=== PATIENT | male | born 1965 | race Caucasian/White ===

== ENCOUNTER 2021-01-10 08:17 | Outpatient (REF) | payer MEDICARE, MEDICAID, SELFPAY ==
[2021-01-10 09:42] LABS: MANUAL DIFF FLAG NO
[2021-01-10 09:47] LABS: Basophils Absolute Auto 0.1 X10*3/uL (0.0-0.2); Basophils Percent Auto 0.7 % (0-2); Eosinophils Absolute Auto 0.2 X10*3/uL (0.0-0.4); Eosinophils Percent Auto 2.5 % (0-4); Hemoglobin 14.5 g/dl (14.0-18.0); Imm Gran Abs Auto 0.11 X10*3/uL (0.00-0.03); Imm Gran Pct Auto 1.2 % (0.0-0.4); Lymphocytes Absolute Auto 1.4 X10*3/uL (1.2-4.9); Lymphocytes Percent Auto 15.5 % (20-40); Mean Corpuscular Hemoglobin 30.3 pg (27.0-33.0); Mean Corpuscular Volume 92.1 fL (80-98); Mean Platelet Volume 10.8 fL (9.4-12.4); Monocytes Absolute Auto 0.8 X10*3/uL (0.1-1.2); Monocytes Percent Auto 9.1 % (2-11); Neutrophils Absolute Auto 6.3 X10*3/uL (2.0-8.3); Platelet Count 363 X10*3/uL (160-400); Red Blood Count 4.78 X10*6/uL (4.60-5.80); Red Cell Distribution Width 13.7 % (11.0-16.0); White Blood Count 8.9 X10*3/uL (4.8-10.8)
[2021-01-10 10:15] LABS: Alanine Aminotransferase 17 U/L (0-40); Albumin Level 4.3 g/dL (3.5-5.0); Alkaline Phosphatase 64 U/L (39-117); Anion Gap 14 (12-20); Aspartate Amino Transferase 18 U/L (5-37); Bilirubin Total 0.6 mg/dL (0.0-1.0); Blood Urea Nitrogen 13 mg/dL (9-16); Calcium 9.4 mg/dL (8.4-10.2); Carbon Dioxide 26 mmol/L (22-29); Chloride 105 mmol/L (96-108); Cholesterol 189 mg/dL; Estimated Glomerular Filt Rate > 60; Glucose Fasting 100 mg/dL (60-99); HDL Cholesterol 44 mg/dL; LDL Cholesterol Calculated 133 mg/dl; Potassium 4.1 mmol/L (3.3-5.1); Sodium 141 mmol/L (135-145); Total Protein 7.8 g/dL (6.5-8.0); Triglycerides 61 mg/dL
[2021-01-10 10:36] LABS: TSH reflex Free T4 2.91 uIU/mL (0.32-4.0)
== END 2021-01-10 08:18 | disposition home or self-care (01) ==
LOC: HO.LAB 08:17
PROVIDERS: PCP Family Medicine; Visit Provider Family Medicine
DX: Z00.00 Encounter for general adult medical examination without abnormal findings (principal); D64.9 Anemia, unspecified
CPT/HCPCS: 36415; 80053; 80061; 84443; 85025

== ENCOUNTER 2021-03-02 11:54 | Outpatient (REF) | payer MEDICARE, MEDICAID, SELFPAY ==
--- NOTE | 2021-03-02 16:40 | MHC.AU.ANR ---
Adult Audiological Evaluation Date of Visit: 03/02/21 Reason for Appointment: Audiological evaluation as required annually by SHAVON KIMBALL. Mr. Torres was accompanied by his telephonic case manager that notes that much of Mr. Torres's medical history is unknown and prior to his arrival many of his medical needs were neglected. There have not been any significant concerns for Mr. Mortensens hearing. Does patient feel they have a hearing loss?: No Has hearing been tested previously?: Unknown Medical History: Medical History: Developmental Disorder/Delay Medical History (Other): Cerebral palsy Medication List: Tylenol/Acetaminophen PRN, Eucerine cream PRN, Hydrocortisone 1% PRN Otoscopy: Right Ear: Completely occluded w/wax. Almost all removed. Small amount remains. Left Ear: Minor wax build-up, removed entirely without incident. Tympanometry: Tympanometry performed due to: To determine if cerumen blockage is fully occluding canal(s) Right Ear: Normal Middle Ear System (Type A) Left Ear: Normal Middle Ear System (Type A) Hearing Evaluation: Transducer(s) Used: Circumaural Headphones, Bone Conduction Method: Conventional Audiometry Stimuli Used: Pure Tones Right Ear: Description of Hearing: Normal hearing from 250-3000 Hz, sloping to a mild to moderate sensorineural hearing loss from 6090-5129 Hz. Left Ear: Description of Hearing: Normal hearing from 250-4000 Hz, sloping to a moderate hearing loss from 2735-4126 Hz. Speech Recognition Threshold (SRT): Method Used: Monitored Live Voice Stimuli Used: Spondee Words Right Ear: 5 dBHL Left Ear: 5 dBHL Word Discrimination: Method: Recorded Lists Word Lists Used: NU-6 Right Ear: 100% at 55 dBHL Left Ear: 100% at 55 dBHL Recommendations: Audiological re-evaluation in one year. Amplification is not warranted at this time. Recommend monthly use of ear wax softening drops that can be purchased over the counter (i.e. Debrox, Ear Wax ) to help prevent further wax build-up. Mr. Torres[facility] [place] requires an Rx for use of any medical supplies, and therefore an Rx from his PCP is needed for ear wax softening drops. Diagnosis: Primary Diagnosis: H90.3 Bilateral Sensorineural Hearing Loss Secondary Diagnosis: H61.23 Impacted Cerumen, Bilateral Services Performed: Services Performed: Comprehensive Audiological Evaluation (CPT 43142) Tympanometry (CPT 44273) Signature: Provider: Chad Hatch, CCC-A
== END 2021-03-02 11:55 | disposition home or self-care (01) ==
LOC: HO.SH 11:54
PROVIDERS: Visit Provider Family Medicine
DX: H91.90 Unspecified hearing loss, unspecified ear (principal); F79 Unspecified intellectual disabilities; G80.9 Cerebral palsy, unspecified
CPT/HCPCS: 92557; 92567

== ENCOUNTER 2021-05-09 11:33 | Outpatient (REF) | payer MEDICARE, MEDICAID, SELFPAY ==
[2021-05-09 13:55] LABS: Alanine Aminotransferase 14 U/L (0-40); Albumin Level 4.1 g/dL (3.5-5.0); Alkaline Phosphatase 77 U/L (39-117); Anion Gap 10 (12-20); Aspartate Amino Transferase 17 U/L (5-37); Bilirubin Total 0.5 mg/dL (0.0-1.0); Blood Urea Nitrogen 13 mg/dL (9-16); Calcium 9.7 mg/dL (8.4-10.2); Carbon Dioxide 28 mmol/L (22-29); Chloride 106 mmol/L (96-108); Estimated Glomerular Filt Rate > 60; Glucose Random 86 mg/dL (60-115); Iron 64 mcg/dL (45-160); Percent Iron Saturation 20 % (15-50); Potassium 3.8 mmol/L (3.3-5.1); Sodium 140 mmol/L (135-145); Total Iron Binding Capacity 316 mcg/dL (228-428); Total Protein 7.2 g/dL (6.5-8.0); Unsaturated Iron Binding 252 ug/dL
[2021-05-09 14:12] LABS: HBS Num1 0.07 mIU/mL (0-7.99); ~Hepatitis B Surface Antibody NONREACTIVE (Nonreactive)
[2021-05-09 14:15] LABS: Prostate Specific Antigen Scr 0.64 ng/mL (<0.05-4.0); Vitamin D 25-OH Total 25.4 ng/mL (>30)
[2021-05-09 14:21] LABS: HBc Num1 0.11 S/CO (0.00-0.79); HBsAGNum1 0.21 S/CO (0.00-0.99); Hepatitis B Core Antibody Nonreactive (Nonreactive); Hepatitis B Surface Antigen Negative (Negative); ~Hepatitis C Antibody Nonreactive (Nonreactive)
[2021-05-09 14:30] LABS: Folate 15.7 ng/mL (> or = 4.0); Vitamin B12 379 pg/mL (200-900)
[2021-05-10 21:32] LABS: Mumps Virus IgG Antibody <9.00 AU/mL; Rubeola IgG (Measles) <13.50 AU/mL
== END 2021-05-09 11:34 | disposition home or self-care (01) ==
LOC: HO.WFDLDS 11:33
PROVIDERS: Visit Provider Family Medicine
DX: Z01.84 Encounter for antibody response examination (principal); Z11.59 Encounter for screening for other viral diseases; Z12.5 Encounter for screening for malignant neoplasm of prostate; E63.9 Nutritional deficiency, unspecified; Z71.89 Other specified counseling; E55.9 Vitamin D deficiency, unspecified; E53.8 Deficiency of other specified B group vitamins
CPT/HCPCS: 36415; 80053; 82306; 82607; 82746; 83540; 84153; 86704; 86706; 86735; 86762; 86765; 86787; 86803; 87340

== ENCOUNTER 2021-05-25 10:48 | Outpatient (REF) | payer MEDICARE, MEDICAID, SELFPAY ==
--- NOTE | ~2021-05-25 | XR_ITS ---
EXAMINATION: XR CHEST CLINICAL INFORMATION: Nonspecific reaction to tuberculin skin test. COMPARISON: None. TECHNIQUE: 2 views of the chest were obtained. FINDINGS: The lungs are clear. The cardiomediastinal silhouette is normal in size. There is no pleural effusion or pneumothorax. No acute osseous abnormality. XR/XR chest 2V IMPRESSION: No acute cardiopulmonary findings.
== END 2021-05-25 10:49 | disposition home or self-care (01) ==
LOC: HO.XRAY 10:48
PROVIDERS: PCP Family Medicine; Visit Provider Nurse Practitioner Family
DX: R76.11 Nonspecific reaction to tuberculin skin test without active tuberculosis (principal)
CPT/HCPCS: 71046

== ENCOUNTER → 2021-08-21 08:02 | Outpatient (BNVA) | payer MEDICARE, MEDICAID, SELFPAY | PROVIDERS: Visit Provider Nurse Practitioner Family | DX: Z13.89 Encounter for screening for other disorder (principal) | CPT/HCPCS: 99202 ==

== ENCOUNTER 2021-08-21 09:10 | Outpatient (REF) | payer MEDICARE, MEDICAID, SELFPAY ==
[2021-08-21 09:53] LABS: Hematocrit 47.9 % (42.0-52.0); Hemoglobin 15.7 g/dl (14.0-18.0); Mean Corpuscular HGB Conc 32.8 g/dl (31.0-36.0); Mean Corpuscular Hemoglobin 29.3 pg (27.0-33.0); Mean Corpuscular Volume 89.5 fL (80.0-98.0); Mean Platelet Volume 10.6 fL (9.4-12.4); Platelet Count 320 X10*3/uL (160-400); Red Blood Count 5.35 X10*6/uL (4.60-5.80); Red Cell Distribution Width 13.3 % (11.0-16.0); White Blood Count 8.9 X10*3/uL (4.8-10.8)
== END 2021-08-21 09:11 | disposition home or self-care (01) ==
LOC: HO.LAB 09:10
PROVIDERS: PCP Family Medicine; Visit Provider Nurse Practitioner Family
DX: Z01.818 Encounter for other preprocedural examination (principal)
CPT/HCPCS: 36415; 85027; 99202

== ENCOUNTER 2021-11-22 14:00 | Outpatient (RCR) | payer MEDICARE, MEDICAID, SELFPAY ==
--- NOTE | 2021-11-01 13:42 | MHC.PT.EP ---
[facility] [place] Office [place] Office [address] Waqar Talbert [address] [phone] F: [phone] F: [phone] F: [phone] F: [phone] Physical Therapy Plan of Care Date of Evaluation: Date of Surgery: N/A Diagnosis: unsteadiness on feet cerebral palsy Assessment: pt presented w/ significant tilt of walker causing him increased trunk flexion and forward force. When the walker was adjusted he had improved posture and his gait slowed down to a safe pace. pt does present w/ cerebral palsy and has poor insight into his abilities and has poor carryover w/ cueing from this therpist which will limit his progress. pt presents to physical therapy with pain, decreased range of motion, decreased strength, impaired functional mobility, impaired postural awareness, and gait deviations. pt is a fair candidate for skilled PT due to age, potential remediation of impairments, typical disease/condition progression and prognosis, comorbidities, and motivation. pt would benefit from tailored strengthening and stretching exercise program, functional training, gait training, postural re-training, neuromuscular re-education, modalities as needed for pain, equipment safety demonstration. Frequency and Duration: The patient will be seen 2x/wk for 3 wks Short Term Goals: pt will be spv level for home exercise program to promote self-management of condition. pt will improve B quad strength by 1 MMT to promote ease in sit to stand transfers. Gill Box Tender Goals: pt will perform sit to stand transfer in one attempt w/ proper hand and foot placement to increase safety w/ transfers. pt will demonstrate upright trunk and feet within the walker to promote safety w/ ambulation. Treatment Plan: Modalities to reduce pain, spasms and effusion. Manual therapy to restore motion and function. Therapeutic exercise to improve strength and flexibility. Neuromuscular re-education for posture and balance. Therapeutic activities to return to functional activities of daily living. Electronically signed by: Anita Young PT, DPT Please sign and return to therapist. Thank you for your referral.
--- NOTE | 2021-11-27 15:20 | MHC.PT.DC ---
[facility] [place] Office [place] Office [place] Office [address] Waqar Talbert [address] [facility] [phone] F: [phone] F: [phone] F: [phone] F: [phone] Physical Therapy Discharge Report Diagnosis: unsteadiness on feet cerebral palsy Date of Surgery: N/A Date of Evaluation: 11/01/21 Date of Discharge: 11/27/21 Treatments to Date: 6 Cancellations to Date: 1 No Shows to Date: 0 Discharge Status: Improved Function Discharge Summary: The patient overall has demonstrated improved postural awareness and safety with ambulation using his walker. The angle of his walker was adjusted the first day of his plan of care to prevent him from relying on his upper extremities and promoting significant forward lean. He has better awareness of neutral trunk and keeping his feet close to the walker to prevent falls. Due to cognitive impairments he does require occasional verbal cueing to maintain safety while ambulating. The staff who accompany him during his visits were educated on how to cue him while ambulating and were shown how to take him through his exercises. He was given a home exercise program to continue to work on strengthening his legs as well as promoting improved muscle activation and isolation. He is discharged from this physical therapy plan of care to his home exercise program. Electronically signed by: Anita Young PT, DPT Please sign and return to therapist. Thank you for your referral.
== END 2021-11-27 15:21 | disposition home or self-care (01) ==
LOC: HO.PT 14:00
PROVIDERS: PCP Family Medicine; Visit Provider Family Medicine
DX: R26.81 Unsteadiness on feet (principal)
CPT/HCPCS: 97110; 97116; 97162

== ENCOUNTER 2021-12-13 13:01 | Outpatient (REF) | payer MEDICARE, MEDICAID, SELFPAY ==
[2021-12-13 14:17] LABS: MANUAL DIFF FLAG NO
[2021-12-13 14:21] LABS: Basophils Percent Auto 0.3 % (0-2); Eosinophils Absolute Auto 0.2 X10*3/uL (0.0-0.4); Eosinophils Percent Auto 1.6 % (0-4); Hematocrit 48.2 % (42.0-52.0); Hemoglobin 15.7 g/dl (14.0-18.0); Imm Gran Abs Auto 0.05 X10*3/uL (0.00-0.03); Imm Gran Pct Auto 0.4 % (0.0-0.4); Lymphocytes Absolute Auto 1.7 X10*3/uL (1.2-4.9); Lymphocytes Percent Auto 13.9 % (20-40); Mean Corpuscular HGB Conc 32.6 g/dl (31.0-36.0); Mean Corpuscular Volume 88.9 fL (80.0-98.0); Mean Platelet Volume 11.1 fL (9.4-12.4); Monocytes Absolute Auto 1.1 X10*3/uL (0.1-1.2); Monocytes Percent Auto 9.2 % (2-11); Neutrophils Absolute Auto 9.1 x10*3/uL (2.0-8.3); Neutrophils Percent Auto 74.6 % (45-73); Platelet Count 329 X10*3/uL (160-400); Red Blood Count 5.42 X10*6/uL (4.60-5.80); Red Cell Distribution Width 13.2 % (11.0-16.0); White Blood Count 12.2 X10*3/uL (4.8-10.8)
[2021-12-13 14:35] LABS: Alanine Aminotransferase 14 U/L (0-40); Albumin Level 4.4 g/dL (3.5-5.0); Alkaline Phosphatase 69 U/L (39-117); Anion Gap 12 (12-20); Aspartate Amino Transferase 22 U/L (5-37); Bilirubin Total 0.8 mg/dL (0.0-1.0); Blood Urea Nitrogen 13 mg/dL (9-16); Calcium 9.8 mg/dL (8.4-10.2); Carbon Dioxide 26 mmol/L (22-29); Chloride 105 mmol/L (96-108); Estimated Glomerular Filt Rate > 60; Glucose Fasting 82 mg/dL (60-99); Sodium 139 mmol/L (135-145); Total Protein 7.7 g/dL (6.5-8.0)
== END 2021-12-13 13:02 | disposition home or self-care (01) ==
LOC: HO.WFDLDS 13:01
PROVIDERS: Visit Provider Family Medicine
DX: K92.1 Melena (principal)
CPT/HCPCS: 36415; 80053; 85025

== ENCOUNTER 2021-12-14 08:51 | Emergency (ER) | payer MEDICARE, MEDICAID, SELFPAY ==
[2021-12-14 09:02] VITALS: BP 130/88; BP 140/100; PULSE 94; RESP 16; TEMP 36.8; O2SAT 98; BMI 27.4
--- NOTE | 2021-12-14 09:13 | ED_ITS ---
HPI - General Adult General Chief complaint: GI Bleed Stated complaint: frequent bowel movements Time Seen by Provider: 12/14/21 09:03 Source: patient and EMS Mode of arrival: EMS History of Present Illness HPI narrative: 56-year-old male with no significant past medical history presenting to the ED from skilled nursing for reported intermittent diarrhea and bloody BMs. Per EMS patient was seen by PCP yesterday who schedule lab/stool studies. Patient offers no complaints at present, denies abdominal pain, nausea, vomiting, bloody BMs at present, melena, rectal pain, dysuria/hematuria, lightheadedness/dizziness. Denies taking anticoagulation. Onset (ago): day(s) Related Data Home Medications Medication Instructions Recorded Confirmed carbamide peroxide 6.5 % ear drops 5 drp OTIC (EAR) RIGHT Q2D 12/14/21 12/14/21 (Debrox) lanolin-mineral oil lotion 1 appl TOPICAL BID PRN 12/14/21 12/14/21 (Eucerin Original) Previous Rx's Medication Instructions Recorded acetaminophen 650 mg 650 mg PO Q8H PRN 90 Days #270 tab 01/09/21 tablet,extended release (Tylenol 8 Hour) hydrocortisone 1 % topical cream 1 appl TOPICAL DAILY PRN 30 Days 01/09/21 (Anti-Itch (hydrocortisone)) #28.4 g miscellaneous medical supply #1 ea 01/09/21 Shower Chair #1 ea 01/10/21 cholecalciferol (vitamin D3) 125 125 mcg PO DAILY 30 Days #30 cap 08/28/21 mcg (5,000 unit) capsule Allergies Allergy/AdvReac Type Severity Reaction Status Date / Time No Known Allergies Allergy Verified 12/13/21 12:11 Review of Systems Review of Systems: Constitutional: No Fever, No Chills, No Fatigue, No Malaise ENT/Mouth: No Ear Pain, No Nasal Congestion, No Hoarseness, No sore throat, No Rhinorrhea, No Swallowing Difficulty Eyes: No Eye Pain, No Swelling, No Redness, No Discharge Cardiovascular: No Chest Pain, No SOB, No Edema, No Palpitations Respiratory: No Cough, No Sputum, No Smoke Exposure, No Dyspnea Gastrointestinal: No Nausea, No Vomiting, No Diarrhea, No Constipation, No Abdominal pain, +intermittent bloody stools, No Melena Genitourinary: No irregular bleeding, No Dysuria, No Urinary Frequency, No Hematuria, No Flank Pain Musculoskeletal: No joint pain, No Myalgias, No Joint Swelling Skin: No Skin Lesions, No rash Neuro: No Weakness, No Numbness, No Paresthesias, No Dizziness, No Headache Yes all other systems are reviewed and are negative [facility] Past Medical History Attestation statement: The following information was validated with the patient. Social History Social History Housing: Senior Living Alcohol intake: never Patient Tobacco Use Status: Never used Tobacco e-Cigarette/Vaping Use: Never Used Second Hand Smoke Exposure: No Use of substances other than those prescribed or required for medical reasons: No Advance Directives: No Advance Directives Information Provided: No service: No Current occupational status: disabled Current occupational exposures/hazards: No Physical Exam ED Vital Signs: Vital Signs - 24 hr 12/14/21 09:02 12/14/21 09:33 12/14/21 10:54 Temperature 98.3 F 97.8 F 97.6 F Pulse Rate 94 80 65 Respiratory Rate 16 18 18 Blood Pressure 130/88 121/74 114/78 Pulse Oximetry 98 95 95 BMI result Body Mass Index 27.4 Const General: cooperative, healthy appearing and no acute distress Orientation/consciousness: patient oriented x3 Limitations: no limitations HENMT Head: Yes normal to inspection Ears: hearing grossly normal bilaterally General nose exam: Normal external nose present Face and sinus: Yes normal facial exam Eyes General: appearance normal, both eyes and all related structures EOM: EOMs intact bilaterally Neck Neck: Yes normal visual inspection and Yes no meningeal signs Resp Effort & Inspection: normal respiratory effort Auscultation: clear to auscultation bilaterally, no rales, no rhonchi and no wheezes Cardio Rate: regular rate Heart sounds: S1 normal heart sound present and S2 normal heart sound present GI Inspection: Yes normal to inspection Palpation (GI): Soft to palpation, nontender, no guarding and not rigid Rectal Exam - Male: No External hemorrhoid(s) present and No Internal hemorrhoid(s) present Skin Rashes: no rashes Wounds: no wounds Neuro General: patient oriented x3 and no meningeal signs Gait exam (Neuro): Normal gait present Extrem General: Yes normal to inspection Course Course Course Narrative: -1142--no leukocytosis. H&H stable. BUN 17. Occult stool negative. Labs othe rwise unremarkable. -UA with 5 ketones/not infected Patient has not had any episodes of diarrhea or bloody diarrhea since ED arrival > results discussed with patient including worrisome signs and symptoms and strict return precautions and need close follow-up with PCP/GI. Patient verbalized understanding and feel safe for discharge home at this time -receive pictures from patient's skilled nursing of patient's bloody BMs. With stable H&H, stable vitals/no tachycardia and no bloody BM in the ED plan will still be for outpatient GI follow-up for outpatient colonoscopy Medical Decision Making MDM Narrative Medical decision making narrative: 56-year-old male with no significant past medical history presenting to the ED from skilled nursing for reported intermittent diarrhea and bloody BMs. On exam vital signs stable, NAD/nontoxic, abdomen soft/nontender. Concern for ?GI bleed vs constipation/straining blood vs gastroenteritis. Unlikely diverticulitis/appendicitis/cholecystitis or pancreatitis without tenderness on exam Plan: Labs, UA, occult stool, IVF, re-evaluate Medical Records Medical records reviewed: Yes I reviewed the patient's medical records. Lab Data Lab results reviewed: Yes I reviewed the patient's lab results. Result diagrams: 12/14/21 09:31 12/14/21 09:31 Labs: Lab Results 12/14/21 12/14/21 12/14/21 Range/Units 09:31 09:31 09:39 WBC 8.6 (4.8-10.8) X10*3/uL RBC 5.16 (4.60-5.80) X10*6/uL Hgb 15.2 (14.0-18.0) g/dl Hct 45.6 (42.0-52.0) % MCV 88.4 (80.0-98.0) fL MCH 29.5 (27.0-33.0) pg MCHC 33.3 (31.0-36.0) g/dl RDW 13.2 (11.0-16.0) % Plt Count 275 (160-400) X10*3/uL MPV 11.0 (9.4-12.4) fL Immature Gran % (Auto) 0.5 H (0.0-0.4) % Neut % (Auto) 76.1 H (45-73) % Lymph % (Auto) 14.3 L (20-40) % [place] % (Auto) 6.8 (2-11) % Eos % (Auto) 2.0 (0-4) % Baso % (Auto) 0.3 (0-2) % Lymph # (Auto) 1.2 (1.2-4.9) X10*3/uL [place] # (Auto) 0.6 (0.1-1.2) X10*3/uL Eos # (Auto) 0.2 (0.0-0.4) X10*3/uL Baso # (Auto) 0.0 (0.0-0.2) X10*3/uL Abs Immat Gran (auto) 0.04 H (0.00-0.03) X10*3/uL Absolute Neuts (auto) 6.6 (2.0-8.3) x10*3/uL Absolute Nucleated RBC 0.000 (0.0-0.012) X10*3/uL Nucleated RBC % (auto) 0.0 (0.0-0.2) /100WBC Sodium 139 (135-145) mmol/L Potassium 3.8 (3.3-5.1) mmol/L Chloride 106 (96-108) mmol/L Carbon Dioxide 26 (22-29) mmol/L Anion Gap 11 L (12-20) BUN 17 H (9-16) mg/dL Creatinine 0.75 (0.5-1.4) mg/dL Estim Creat Clear Calc 101.6 Estimated GFR > 60 Random Glucose 120 H D (60-115) mg/dL Calcium 9.8 (8.4-10.2) mg/dL Magnesium 2.2 (1.6-2.6) mg/dL Total Bilirubin 0.5 (0.0-1.0) mg/dL Direct Bilirubin 0.2 (0.0-0.5) mg/dL AST 24 (5-37) U/L ALT 16 (0-40) U/L Alkaline Phosphatase 61 (39-117) U/L Total Protein 7.0 (6.5-8.0) g/dL Albumin 4.0 (3.5-5.0) g/dL Lipase 24 (8-78) U/L Urine Color Urine Appearance Urine pH (5.0-8.0) Ur Specific [place] (1.005-1.025) Urine Protein (NEG-TRACE) MG/DL Urine Glucose (UA) (NEG) MG/DL Urine Ketones (NEG) MG/DL Urine Blood (NEG) Urine Nitrite (NEG) Ur Leukocyte Esterase (NEG) Stool Occult Blood NEGATIVE (NEGATIVE) 12/14/21 Range/Units 10:01 WBC (4.8-10.8) X10*3/uL RBC (4.60-5.80) X10*6/uL Hgb (14.0-18.0) g/dl Hct (42.0-52.0) % MCV (80.0-98.0) fL MCH (27.0-33.0) pg MCHC (31.0-36.0) g/dl RDW (11.0-16.0) % Plt Count (160-400) X10*3/uL MPV (9.4-12.4) fL Immature Gran % (Auto) (0.0-0.4) % Neut % (Auto) (45-73) % Lymph % (Auto) (20-40) % [place] % (Auto) (2-11) % Eos % (Auto) (0-4) % Baso % (Auto) (0-2) % Lymph # (Auto) (1.2-4.9) X10*3/uL [place] # (Auto) (0.1-1.2) X10*3/uL Eos # (Auto) (0.0-0.4) X10*3/uL Baso # (Auto) (0.0-0.2) X10*3/uL Abs Immat Gran (auto) (0.00-0.03) X10*3/uL Absolute Neuts (auto) (2.0-8.3) x10*3/uL Absolute Nucleated RBC (0.0-0.012) X10*3/uL Nucleated RBC % (auto) (0.0-0.2) /100WBC Sodium (135-145) mmol/L Potassium (3.3-5.1) mmol/L Chloride (96-108) mmol/L Carbon Dioxide (22-29) mmol/L Anion Gap (12-20) BUN (9-16) mg/dL Creatinine (0.5-1.4) mg/dL Estim Creat Clear Calc Estimated GFR Random Glucose (60-115) mg/dL Calcium (8.4-10.2) mg/dL Magnesium (1.6-2.6) mg/dL Total Bilirubin (0.0-1.0) mg/dL Direct Bilirubin (0.0-0.5) mg/dL AST (5-37) U/L ALT (0-40) U/L Alkaline Phosphatase (39-117) U/L Total Protein (6.5-8.0) g/dL Albumin (3.5-5.0) g/dL Lipase (8-78) U/L Urine Color YELLOW Urine Appearance CLEAR Urine pH 6.0 (5.0-8.0) Ur Specific [place] 1.025 (1.005-1.025) Urine Protein NEG (NEG-TRACE) MG/DL Urine Glucose (UA) NEG (NEG) MG/DL Urine Ketones 5 (NEG) MG/DL Urine Blood NEG (NEG) Urine Nitrite NEG (NEG) Ur Leukocyte Esterase NEG (NEG) Stool Occult Blood (NEGATIVE) Discharge Plan Discharge Clinical Impression: Diarrhea, Bloody stool Patient Disposition: Home, Self-Care Instructions: Acute Diarrhea (ED), Rectal Bleeding (ED) Additional Instructions: Your blood work was reassuring today in the ED. Your stool is negative for blood. It is important for you to follow-up with your doctor as well as a GI specialist. If your symptoms persist or worsen, you have constant worsening diarrhea/persistent diarrhea or abdominal pain, fever, or blood in your stool please return to the emergency department. Prescriptions: No Action (DME) Shower Chair Misc See Rx Instructions .ROUTE .MEDSUPPLY Qty: 1 0RF Rx Instructions: As directed showerchair Debrox 6.5 % drops 5 drp otic (ear) right Q2D 0RF Eucerin Original Lotion 1 appl topical BID PRN (Reason: dry skin) 0RF acetaminophen [Tylenol 8 Hour] 650 mg tablet extended release 650 mg PO Q8H PRN (Reason: fever or pain) 90 Days Qty: 270 3RF hydrocortisone [Anti-Itch (HC)] 1 % cream 1 appl topical DAILY PRN (Reason: skin irritation) 30 Days Qty: 28.4 1RF (DME) miscellaneous medical supply Misc See Rx Instructions .ROUTE .MEDSUPPLY Qty: 1 0RF Rx Instructions: Shower safety stool. As directed, 999 days/life time. cholecalciferol (vitamin D3) 125 mcg (5,000 unit) capsule 125 mcg PO DAILY 30 Days Qty: 30 4RF Referrals: Manny Cardona MD [Primary Care Provider] - 2 days Dat Gomez [Physician] - 2 days
[2021-12-14 09:33] VITALS: BP 121/74; PULSE 80; RESP 18; TEMP 36.6; O2SAT 95
--- NOTE | 2021-12-14 09:36 | PC.NURSE ---
Pt denies all complaints. Skin pwd. staff present with photos of pure kristen coagulated blood in toilet. This RN to receive via e-mail and forward to provider for record. Pt is not tachipnic. Lower conjunctiva is pink/red. No active vomiting or BMs. diarrhea started friday evening per staff, blood appeared last night but may have been there prior to.
[2021-12-14 09:45] LABS: MANUAL DIFF FLAG NO
[2021-12-14 09:52] LABS: Basophils Percent Auto 0.3 % (0-2); Eosinophils Absolute Auto 0.2 X10*3/uL (0.0-0.4); Hematocrit 45.6 % (42.0-52.0); Hemoglobin 15.2 g/dl (14.0-18.0); Imm Gran Abs Auto 0.04 X10*3/uL (0.00-0.03); Imm Gran Pct Auto 0.5 % (0.0-0.4); Lymphocytes Absolute Auto 1.2 X10*3/uL (1.2-4.9); Lymphocytes Percent Auto 14.3 % (20-40); Mean Corpuscular HGB Conc 33.3 g/dl (31.0-36.0); Mean Corpuscular Hemoglobin 29.5 pg (27.0-33.0); Mean Corpuscular Volume 88.4 fL (80.0-98.0); Monocytes Absolute Auto 0.6 X10*3/uL (0.1-1.2); Monocytes Percent Auto 6.8 % (2-11); Neutrophils Absolute Auto 6.6 x10*3/uL (2.0-8.3); Neutrophils Percent Auto 76.1 % (45-73); Platelet Count 275 X10*3/uL (160-400); Red Blood Count 5.16 X10*6/uL (4.60-5.80); Red Cell Distribution Width 13.2 % (11.0-16.0); White Blood Count 8.6 X10*3/uL (4.8-10.8)
[2021-12-14 09:56] LABS: OBS Int Ctl Valid YES; OBS1 NEGATIVE (NEGATIVE)
[2021-12-14 10:06] LABS: Appearance Urine CLEAR; Color Urine YELLOW; Glucose Urine UA NEG (NEG); Leukocyte Esterase Urine NEG (NEG); Nitrite Urine NEG (NEG); Specific Gravity - Urine 1.025 (1.005-1.025); Urine Blood NEG (NEG); Urine Ketones 5 MG/DL (NEG); Urine Protein NEG (NEG-TRACE)
[2021-12-14 10:07] LABS: Alanine Aminotransferase 16 U/L (0-40); Alkaline Phosphatase 61 U/L (39-117); Anion Gap 11 (12-20); Aspartate Amino Transferase 24 U/L (5-37); Bilirubin Direct 0.2 mg/dL (0.0-0.5); Bilirubin Total 0.5 mg/dL (0.0-1.0); Blood Urea Nitrogen 17 mg/dL (9-16); Calcium 9.8 mg/dL (8.4-10.2); Carbon Dioxide 26 mmol/L (22-29); Chloride 106 mmol/L (96-108); Creatinine Clr Calc Pharmacy 101.6; Estimated Glomerular Filt Rate > 60; Glucose Random 120 mg/dL (60-115); Lipase 24 U/L (8-78); Magnesium 2.2 mg/dL (1.6-2.6); Potassium 3.8 mmol/L (3.3-5.1); Sodium 139 mmol/L (135-145)
[2021-12-14 10:54] VITALS: BP 114/78; PULSE 65; RESP 18; TEMP 36.4; O2SAT 95
[2021-12-14] MEDS: 0.9 % Sodium Chloride 1,000 ML 999 ML IV (10:54)
--- NOTE | 2021-12-14 13:31 | PHA.MEDREC ---
Pharmacy Consult ? Medication Reconciliation Pharmacy has completed the medication reconciliation. LIST FROM PT'S JAIL
--- NOTE | 2021-12-14 13:50 | PC.NURSE ---
Pt has been resting quietly w/o diff. Skin pwd. no BM or rectal bleeding while in ED. awaiting ride home.
== END 2021-12-14 14:21 | disposition home or self-care (01) ==
PROVIDERS: Physician Assistant; Emergency Provider Emergency Medicine; PCP Family Medicine
DX: K92.2 Gastrointestinal hemorrhage, unspecified (principal); R19.7 Diarrhea, unspecified; Z79.899 Other long term (current) drug therapy
CPT/HCPCS: 36415; 80048; 80076; 81003; 82272; 83690; 83735; 85025; 96360; 99284

== ENCOUNTER → 2021-12-31 14:21 | Outpatient (BNVA) | payer MEDICARE, MEDICAID, SELFPAY | PROVIDERS: PCP Family Medicine; Referring Provider Family Medicine; Visit Provider Nurse Practitioner Family | DX: Z01.818 Encounter for other preprocedural examination (principal); K92.1 Melena | CPT/HCPCS: 99212 ==

== ENCOUNTER 2022-03-12 08:08 | Outpatient (REF) | payer MEDICARE, MEDICAID, SELFPAY ==
[2022-03-12 11:21] LABS: MANUAL DIFF FLAG NO
[2022-03-12 11:35] LABS: Basophils Percent Auto 0.6 % (0-2); Eosinophils Absolute Auto 0.3 X10*3/uL (0.0-0.4); Eosinophils Percent Auto 4.3 % (0-4); Hematocrit 44.4 % (42.0-52.0); Hemoglobin 14.4 g/dl (14.0-18.0); Imm Gran Abs Auto 0.02 X10*3/uL (0.00-0.03); Imm Gran Pct Auto 0.3 % (0.0-0.4); Lymphocytes Absolute Auto 1.3 X10*3/uL (1.2-4.9); Lymphocytes Percent Auto 18.2 % (20-40); Mean Corpuscular HGB Conc 32.4 g/dl (31.0-36.0); Mean Corpuscular Hemoglobin 29.1 pg (27.0-33.0); Mean Corpuscular Volume 89.9 fL (80.0-98.0); Monocytes Absolute Auto 0.6 X10*3/uL (0.1-1.2); Monocytes Percent Auto 9.2 % (2-11); Neutrophils Absolute Auto 4.7 x10*3/uL (2.0-8.3); Neutrophils Percent Auto 67.4 % (45-73); Platelet Count 254 X10*3/uL (160-400); Red Blood Count 4.94 X10*6/uL (4.60-5.80); Red Cell Distribution Width 13.3 % (11.0-16.0)
[2022-03-12 12:03] LABS: Alanine Aminotransferase 18 U/L (0-40); Alkaline Phosphatase 59 U/L (39-117); Anion Gap 12 (12-20); Aspartate Amino Transferase 21 U/L (5-37); Bilirubin Total 0.6 mg/dL (0.0-1.0); Blood Urea Nitrogen 18 mg/dL (9-16); Calcium 9.6 mg/dL (8.4-10.2); Carbon Dioxide 25 mmol/L (22-29); Chloride 109 mmol/L (96-108); Cholesterol 176 mg/dL; Estimated Glomerular Filt Rate > 60; Glucose Fasting 93 mg/dL (60-99); HDL Cholesterol 33 mg/dL; LDL Cholesterol Calculated 125 mg/dl; Potassium 3.7 mmol/L (3.3-5.1); Sodium 142 mmol/L (135-145); Total Protein 7.1 g/dL (6.5-8.0); Triglycerides 90 mg/dL
[2022-03-12 12:30] LABS: Prostate Specific Antigen Scr 0.72 ng/mL (<0.05-4.0); TSH reflex Free T4 4.99 uIU/mL (0.32-4.0)
[2022-03-12 13:19] LABS: Free T4 (Free Thyroxine) 0.86 ng/dL (0.71-1.85)
== END 2022-03-12 08:09 | disposition home or self-care (01) ==
LOC: HO.WFDLDS 08:08
PROVIDERS: Visit Provider Family Medicine
DX: Z00.00 Encounter for general adult medical examination without abnormal findings (principal); Z12.5 Encounter for screening for malignant neoplasm of prostate
CPT/HCPCS: 36415; 80053; 80061; 84153; 84439; 84443; 85025

== ENCOUNTER 2022-03-15 08:48 | Outpatient (RCR) | payer MEDICARE, MEDICAID, SELFPAY ==
--- NOTE | 2022-03-15 09:46 | MHC.PT.DC ---
[facility] [place] Office [place] Office [place] Office [address] Waqar Talbert [address] [phone] F: [phone] F: [phone] F: [phone] F: [phone] Physical Therapy Discharge Report Diagnosis: unequal limb length Date of Surgery: N/A Date of Evaluation: 03/15/22 Date of Discharge: 03/15/22 Treatments to Date: 0 Cancellations to Date: 0 No Shows to Date: 0 Discharge Status: Independent with HEP Discharge Summary: The patient arrived with his personal property appraiser from his [facility]. The ROOFING SUPERINTENDENT is new and was unsure what the referral to outpatient PT was for. She denied any change in his medical or functional status. Per the ROOFING SUPERINTENDENT he is refusing to do his HEP when he gets home as he reports he does it at his day program and is too tired by the time he gets home. To accommodate for his fatigue the HEP dosage was changed to on the weekends only. The ROOFING SUPERINTENDENT was educated on the purpose of outpatient PT, instruction for his HEP, new dosage to the weekends, and how to verbally cue the patient for safe ambulation with his walker. A new handout was provided with new frequency. The ROOFING SUPERINTENDENT stated they still have the resistance band from his previous bout of PT. All questions answered at this time. No follow-up needed. Electronically signed by: Anita Young PT, DPT Please sign and return to therapist. Thank you for your referral.
== END 2022-05-17 09:08 | disposition home or self-care (01) ==
LOC: HO.PT 08:48
PROVIDERS: PCP Family Medicine
DX: M21.70 Unequal limb length (acquired), unspecified site (principal)

== ENCOUNTER 2022-04-04 08:55 | Outpatient (REF) | payer MEDICARE, MEDICAID, SELFPAY ==
[2022-04-04 10:42] LABS: Alanine Aminotransferase 16 U/L (0-40); Albumin Level 4.4 g/dL (3.5-5.0); Alkaline Phosphatase 72 U/L (39-117); Anion Gap 12 (12-20); Aspartate Amino Transferase 22 U/L (5-37); Bilirubin Total 0.7 mg/dL (0.0-1.0); Blood Urea Nitrogen 12 mg/dL (9-16); Calcium 9.7 mg/dL (8.4-10.2); Carbon Dioxide 29 mmol/L (22-29); Chloride 103 mmol/L (96-108); Cholesterol 200 mg/dL; Estimated Glomerular Filt Rate > 60; Glucose Fasting 94 mg/dL (60-99); HDL Cholesterol 33 mg/dL; LDL Cholesterol Calculated 136 mg/dl; Potassium 4.1 mmol/L (3.3-5.1); Sodium 140 mmol/L (135-145); Total Protein 7.6 g/dL (6.5-8.0); Triglycerides 159 mg/dL
[2022-04-04 11:03] LABS: Prostate Specific Antigen Scr 0.74 ng/mL (<0.05-4.0); TSH reflex Free T4 3.53 uIU/mL (0.32-4.0)
== END 2022-04-04 08:56 | disposition home or self-care (01) ==
LOC: HO.WFDLDS 08:55
PROVIDERS: Visit Provider Family Medicine
DX: Z00.00 Encounter for general adult medical examination without abnormal findings (principal); Z71.89 Other specified counseling; Z12.5 Encounter for screening for malignant neoplasm of prostate
CPT/HCPCS: 36415; 80053; 80061; 84153; 84443; 86787

== ENCOUNTER 2022-05-09 08:11 | Day surgery (SDC) | payer MEDICARE, MEDICAID, SELFPAY ==
--- NOTE | 2022-01-25 09:25 | P.CONAN_ITS ---
HPI - Anesthesia Eval Consult details Narrative: 56yo M for Colonoscopy longterm resident PMFSH Active Problems Active Problems: All Active Problems (Updated 12/15/21 @ 00:01 by Nirmal Argueta) Diarrhea (Acute) Blood in stool (Acute) Skin breakdown (Acute) Low vitamin D level (Acute) Contact dermatitis (Acute) Decreased hearing (Acute) Immunization counseling (Acute) Elevated LDL cholesterol level (Acute) Elevated fasting blood sugar (Acute) Adult general medical examination (Acute) Screening for prostate cancer (Acute) Screening for colon cancer (Acute) Nutritional deficiency (Acute) Anemia (Acute) Unsteady gait (Acute) Lower extremity weakness (Acute) Leg length discrepancy (Acute) Callus of foot (Acute) Nail overgrowth (Acute) Chronic eczema of foot (Acute) Hypothyroidism (Acute) Intellectual disability (Acute) Cerebral palsy (Acute) Laboratory examination ordered as part of a routine general medical examination (Acute) Past Medical History Medical History (Updated 01/25/22 @ 09:26 by Clary Oro NP) Anemia Cerebral palsy Hypothyroidism Social History Social History Housing: [facility] Alcohol intake: never Patient Tobacco Use Status: Never used Tobacco e-Cigarette/Vaping Use: Never Used Second Hand Smoke Exposure: No service: No Current occupational status: disabled Current occupational exposures/hazards: No Meds Allergies Allergy/AdvReac Type Severity Reaction Status Date / Time No Known Allergies Allergy Verified 12/31/21 14:35 Exam Exam Date and Time: January 25, 2022 0925 Pertinent Lab Results Pertinent Lab Results: Laboratory Tests 12/14/21 12/14/21 09:31 09:31 WBC 8.6 Hgb 15.2 Hct 45.6 Plt Count 275 Sodium 139 Potassium 3.8 Chloride 106 Carbon Dioxide 26 BUN 17 H Creatinine 0.75 Assessment and Plan Assessment Anesthesia Assessment: Chart Reviewed
--- NOTE | 2022-01-29 11:14 | PC.NURSE ---
called to care home pt ate and no prep done will reschedule
--- NOTE | 2022-05-09 08:36 | HO.ANESPROP2 ---
HPI - Anesthesia Eval Consult details Narrative: 57 M for colonoscopy Cerebral palsy [facility] Active Problems Active Problems: All Active Problems (Updated 03/21/22 @ 10:42 by Angel Jaramillo) Elevated TSH (Acute) Low HDL (under 40) (Acute) Annual physical exam (Acute) Overweight (BMI 25.0-29.9) (Acute) Anemia (Acute) Diarrhea (Acute) Blood in stool (Acute) Skin breakdown (Acute) Low vitamin D level (Acute) Contact dermatitis (Acute) Decreased hearing (Acute) Immunization counseling (Acute) Elevated LDL cholesterol level (Acute) Elevated fasting blood sugar (Acute) Adult general medical examination (Acute) Screening for prostate cancer (Acute) Screening for colon cancer (Acute) Nutritional deficiency (Acute) Unsteady gait (Acute) Lower extremity weakness (Acute) Leg length discrepancy (Acute) Callus of foot (Acute) Nail overgrowth (Acute) Chronic eczema of foot (Acute) Intellectual disability (Acute) Laboratory examination ordered as part of a routine general medical examination (Acute) Past Medical History Medical History (Updated 03/21/22 @ 10:42 by Angel Jaramillo) Anemia Cerebral palsy Hypothyroidism Functional capacity: uses cane/walker Family History Family history of problems with anesthesia: No Surgical History History of Problems with Anesthesia: No Social History Social History Housing: [facility] Alcohol intake: never Patient Tobacco Use Status: Never used Tobacco e-Cigarette/Vaping Use: Never Used Second Hand Smoke Exposure: No service: No Current occupational status: disabled Current occupational exposures/hazards: No Cognitive needs: No Hearing needs: No Vision needs: No Meds Allergies Allergy/AdvReac Type Severity Reaction Status Date / Time No Known Allergies Allergy Verified 03/21/22 09:59 Exam Exam Date and Time: May 09, 2022 0836 Airway Mallampati Class: III TM Dist: >3cm Neck ROM: Full Loose/Missing/Broken Teeth: Yes Heart: S1,S2 Lungs: b/l breath sounds Assessment and Plan Assessment Anesthesia Assessment: Anesthesia Plan Discussed and Chart Reviewed Final Anesthetic Review Family History of Problems with Anesthesia: No History of Problems with Anesthesia: No NPO: Yes ASA Class: III Final Preanesthetic Review: Meds/Allgs Chart Reviewed, Consent Obtained/Reviewed (from legal guardian ) and Anes Risks/Benef Reviewed Patient Risk: High Procedure Risk: Intermediate Anesthetic Plan Anesthetic Plan: MAC: Disposition: Standard PACU
--- NOTE | 2022-05-09 08:53 | MHC.SHP ---
Pre-Procedural Eval Section A Date of Service: 05/09/22 Section B Chief Complaint: screening Relevant Family History (Specify if Yes): No Relevant Social History: None Present Medications: see Short Stay Collaborative assessment Medical History: Significant History (Anemia Cerebral palsy Hypothyroidism) History of Previous Operations: No relevant previous surgery Allergies: Allergies Allergy/AdvReac Type Severity Reaction Status Date / Time No Known Allergies Allergy Verified 03/21/22 09:59 Review of Systems Sugical H&P ROS: Negative: Constitution, Cardiovascular, Respiratory, Neurological, Psychiatric, Hem-Onc, Allergic/Immunologic, Gastrointestinal, Genitourinary, Musculoskeletal, Integumentary, Endocrine and Eyes/Ears/Nose/Throat Exam Surgical H&P Exam: Normal: HEENT, Normal: Heart, Normal: Lungs, Normal: Extremities, Normal: Abdomen and Normal: Skin and Significant Findings: Neurological (reduced mobility) Plan Diagnosis/Plan: Unchanged I have reviewed the history and physical and performed a pertinent physical examination on my patient. No changes have occurred unless specified.
[2022-05-09 08:54] VITALS: BMI 28.9
--- NOTE | 2022-05-09 08:55 | W.PM.OPN ---
Operative Note Operative Note Date of Service: 05/09/22 Narrative: Operative Information Procedure Description: Colonoscopy Indication: screening Anesthesia: MAC COLONOSCOPY Instrument: Olympus variable stiffness pediatric scope 190L Colonoscopy Monitoring: Vital signs and clinical assessment, continuous EKG monitoring, Pulse oximetry, Carbon Dioxide monitoring and blood pressure monitoring were done throughout the procedure. Colon withdrawal time was 7 minutes. Procedure: The patient was placed in the left lateral decubitis position and pre-procedure medications were administered. After a digital rectal examination of the ano-rectum, the video colonoscope was inserted into the rectum and advanced through the colon to the cecum/TI. The colonoscope was slowly withdrawn in a retrograde panoramic fashion and the colon mucosa was carefully examined including a retroflexed view of the rectum. Findings and interventions are described below. Procedure Difficulty: moderate, pressure required to enter cecum Findings: Terminal Ileum-not intubated Right sided retroflexion--normal Cecum:normal Ascending Colon: normal Transverse Colon -normal Descending Colon:normal Sigmoid Colon: moderate severe diverticulosis with narrowing of colon Rectum: Retroflexion with small internal hemorrhoids, grade I Anorectum - normal Colon preparation: [place] Bowel Preparation Scale Right colon; 2 Transverse colon: 2 Left colon; 2 (0 = Unprepared colon segment with mucosa not seen due to solid stool that cannot be cleared. 1 = Portion of mucosa of the colon segment seen, but other areas of the colon segment not well seen due to staining, residual stool and/or opaque liquid. 2 = Minor amount of residual staining, small fragments of stool and/or opaque liquid, but mucosa of colon segment seen well. 3 = Entire mucosa of colon segment seen well with no residual staining, small fragments of stool or opaque liquid) Impression and Post Procedure Diagnosis: internal hemorrhoids diverticular disease Plan: High fiber diet leaflet Avoid straining at stool, epsom salts and sitz bath, anusol supps or cream Repeat Colonoscopy in 10 years or earlier if clinically indicated Above findings were reviewed with the patient and relevant handouts were provided if indicated.
[2022-05-09 09:00] VITALS: BP 121/77; PULSE 76; RESP 16; TEMP 35.7; O2SAT 97
[2022-05-09] MEDS: Lactated Ringers 1,000 ML 80 ML IVCONT (09:04)
[2022-05-09 09:35] VITALS: BP 73/52; PULSE 76; RESP 16; TEMP 36.1; O2SAT 95
[2022-05-09 09:40] VITALS: BP 119/73; PULSE 84; RESP 16; O2SAT 98
[2022-05-09 09:50] VITALS: BP 123/74; PULSE 80; RESP 16; TEMP 36.2; O2SAT 98
--- NOTE | 2022-05-09 10:40 | PC.NURSE ---
PATIENT'S GUARDIAN CALLED, EHSAN ACOSTA, AND A MESSAGE LEFT. PATIENT WITH A STAFF MEMBER, Arlene UP, STAFF AT [facility]. GUARDIAN NOT AVAILABLE. [facility] NOTIFIED AND WILL GET A HOLD OF THE GUARDIAN. DC INSTRUCTIONS GIVEN TO Arlene UP, STAFF MEMBER.
--- NOTE | 2022-05-09 11:13 | PC.NURSE ---
PATIENT'S LEGAL GUARDIAN CALLED BACK AND SAID THE STAFF MEMBER Arlene UP,STAFF, WAS FINE TO SIGN FOR THE PATIENT.
== END 2022-05-09 11:00 | disposition home or self-care (01) ==
PROVIDERS: PCP Family Medicine; Visit Provider Internal Medicine Gastroenterology
PROC: 0DJD8ZZ Inspection of Lower Intestinal Tract, Via Natural or Artificial Opening Endoscopic (ICD-10-PCS; CPT 45378; principal; 2022-05-09 09:20)
DX: Z12.11 Encounter for screening for malignant neoplasm of colon (principal); K57.30 Diverticulosis of large intestine without perforation or abscess without bleeding; K64.0 First degree hemorrhoids; G80.9 Cerebral palsy, unspecified; D64.9 Anemia, unspecified; E03.9 Hypothyroidism, unspecified
CPT/HCPCS: G0121

== ENCOUNTER → 2022-06-25 09:36 | Outpatient (BNVA) | payer MEDICARE, MEDICAID, SELFPAY | PROVIDERS: PCP Family Medicine; Visit Provider Nurse Practitioner Family | DX: K57.90 Diverticulosis of intestine, part unspecified, without perforation or abscess without bleeding (principal); Z98.890 Other specified postprocedural states | CPT/HCPCS: 99212 ==

== ENCOUNTER 2022-09-04 12:58 | Outpatient (REF) | payer MEDICARE, MEDICAID, SELFPAY | END 2022-09-04 12:59 | disposition home or self-care (01) | LOC: HO.SH 12:58 | PROVIDERS: Visit Provider Family Medicine | DX: Z01.118 Encounter for examination of ears and hearing with other abnormal findings (principal); H90.3 Sensorineural hearing loss, bilateral | CPT/HCPCS: 92557; 92567 ==

== ENCOUNTER 2023-02-20 08:25 | Outpatient (REF) | payer MEDICARE, MEDICAID, SELFPAY ==
[2023-02-20 11:18] LABS: MANUAL DIFF FLAG NO
[2023-02-20 11:39] LABS: Basophils Absolute Auto 0.1 X10*3/uL (0.0-0.2); Basophils Percent Auto 0.6 % (0-2); Eosinophils Absolute Auto 0.4 X10*3/uL (0.0-0.4); Eosinophils Percent Auto 4.1 % (0-4); Hematocrit 47.8 % (42.0-52.0); Hemoglobin 15.3 g/dl (14.0-18.0); Imm Gran Abs Auto 0.06 X10*3/uL (0.00-0.03); Imm Gran Pct Auto 0.7 % (0.0-0.4); Lymphocytes Absolute Auto 1.9 X10*3/uL (1.2-4.9); Lymphocytes Percent Auto 22.1 % (20-40); Mean Corpuscular Hemoglobin 28.9 pg (27.0-33.0); Mean Corpuscular Volume 90.2 fL (80.0-98.0); Mean Platelet Volume 11.2 fL (9.4-12.4); Monocytes Absolute Auto 0.9 X10*3/uL (0.1-1.2); Neutrophils Absolute Auto 5.4 x10*3/uL (2.0-8.3); Neutrophils Percent Auto 62.5 % (45-73); Platelet Count 272 X10*3/uL (160-400); Red Cell Distribution Width 13.2 % (11.0-16.0); White Blood Count 8.6 X10*3/uL (4.8-10.8)
[2023-02-20 12:18] LABS: Alanine Aminotransferase 26 U/L (0-40); Albumin Level 4.3 g/dL (3.5-5.0); Alkaline Phosphatase 63 U/L (39-117); Anion Gap 10 (12-20); Aspartate Amino Transferase 24 U/L (5-37); Bilirubin Total 0.5 mg/dL (0.0-1.0); Blood Urea Nitrogen 15 mg/dL (9-16); Calcium 9.7 mg/dL (8.4-10.2); Carbon Dioxide 29 mmol/L (22-29); Chloride 109 mmol/L (96-108); Cholesterol 233 mg/dL; Estimated Glomerular Filt Rate > 60; Glucose Fasting 91 mg/dL (60-99); HDL Cholesterol 39 mg/dL; LDL Cholesterol Calculated 176 mg/dl; Potassium 4.6 mmol/L (3.3-5.1); Prostate Specific Antigen Scr 0.87 ng/mL (<0.05-4.0); Sodium 143 mmol/L (135-145); Total Protein 7.3 g/dL (6.5-8.0); Triglycerides 91 mg/dL
[2023-02-20 14:34] LABS: Free T4 (Free Thyroxine) 0.89 ng/dL (0.71-1.85)
== END 2023-02-20 08:26 | disposition home or self-care (01) ==
LOC: HO.WFDLDS 08:25
PROVIDERS: Visit Provider Family Medicine
DX: Z00.00 Encounter for general adult medical examination without abnormal findings (principal); Z12.5 Encounter for screening for malignant neoplasm of prostate; Z20.2 Contact with and (suspected) exposure to infections with a predominantly sexual mode of transmission
CPT/HCPCS: 36415; 80053; 80061; 84153; 84439; 84443; 85025

== ENCOUNTER 2023-06-24 08:25 | Outpatient (AMB) | payer MEDICARE, MEDICAID, SELFPAY ==
--- NOTE | 2023-06-24 08:30 | MHC.OFFVIS ---
Intake Vital Signs 06/24/23 08:34 Height 5 ft 4 in Weight 143 lb 4.807 oz BMI 24.6 BP 123/86 Blood Pressure Location Lt brachial Position Sitting Pulse 84 Intake Visit Reasons: 1 year follow up Intake Note: Erick presents in the office as a 1 year follow up. CC: He states that he is not having any concerns today. Allergies No Known Allergies Allergy (Verified 06/24/23 08:34) HPI 1 year follow up HPI Details LAST VISIT Diverticulosis Diagnosed with diverticular disease, moderate diverticulosis with narrowing of the distal colon.. List of food recommendations given to patient. Patient can start MiraLax daily. Patient can start taking docusate sodium in addition to MiraLax. Patient was encouraged to drink plenty fluids and increase activity as much as tolerated to promote better bowel motility. Status post colonoscopy Internal hemorrhoids and diverticular disease. Patient tolerated procedure well had no issues with anesthesia or the prep. No polyps found 10 year colonoscopy. However I will see patient in 1 year to evaluate, sooner on as needed basis. Patient is agreeable to this plan and verbalizes understanding of instructions. Both patient and staff member were given the opportunity to ask questions and all questions answered. ? TODAY'S VISIT Patient is here today for follow-up. Patient is accompanied by staff member. Patient reports that he has been feeling well. Moving his bowels daily. Takes MiraLax every morning. Only uses Colace on as needed basis. Patient has good appetite. Denies any dyspepsia, dysphagia or odynophagia. Denies any melena, hematochezia, unintentional weight loss or ribbon like stools. Patient denies any GI PFSH Medical History (Updated 06/24/23 @ 08:54 by Sissy See [employer] FAC[employer]Y MEMBER-) Diarrhea Blood in stool Anemia Hypothyroidism Cerebral palsy Surgical History Hx of colonoscopy Social History (Reviewed 09/12/23 @ 08:34 by AMITA Orozco Housing: [facility] Alcohol intake: never Patient Tobacco Use Status: Never used Tobacco e-Cigarette/Vaping Use: Never Used Second Hand Smoke Exposure: No service: No Current occupational status: disabled Current occupational exposures/hazards: No Cognitive needs: No Hearing needs: No Vision needs: No Review of Systems Const Denies weight gain and Denies weight loss ENT Reports no additional complaints, Denies dysphagia and Denies odynophagia Card Reports no additional complaints Resp Reports no additional complaints GI Denies abdominal pain, Denies belching, Denies melena, Denies bloating, Denies change in bowel habits, Denies dysphagia, Denies excessive flatus, Denies dyspepsia, Denies heartburn, Denies diarrhea, Denies loose stools, Denies nausea, Denies odynophagia and Denies vomiting Reports no additional complaints Musc Reports no additional complaints Neuro Reports no additional complaints Psych Reports no additional complaints Endo Reports no additional complaints Physical Exam Vital Signs: Last Vital Signs Pulse 84 06/24/23 08:34 BP 123/86 06/24/23 08:34 BMI result Body Mass Index 24.6 Const General: healthy appearing, no acute distress and well developed Nutritional Appearance: well nourished Orientation/consciousness: oriented to person and oriented to place Limitations: behavioral limitations (Lives in a senior care, staff present) and ambulation with walker HEENT Head: Yes normal to inspection, Yes normocephalic and Yes atraumatic Face and sinus: Yes normal facial exam Mouth: Normal oral and palatal mucosa present Throat: Yes posterior oropharynx normal, Yes tonsils normal and Yes uvula midline Eyes General: appearance normal, both eyes and all related structures Neck Neck: Yes normal visual inspection, Yes full ROM and Yes trachea midline Thyroid: Thyroid normal Resp Effort & Inspection: normal respiratory effort, able to speak in complete sentences, no tracheal deviation and symmetric chest movement Auscultation: clear to auscultation bilaterally Cardio Rate: regular rate Heart sounds: S1 normal heart sound present and S2 normal heart sound present GI Inspection: Yes normal to inspection and No distended Palpation (GI): Soft to palpation, not firm, nontender and No hepatosplenomegaly present Auscultation: normal bowel sounds General: Yes no CVA tenderness Back/Spine/Pelvis Back: no CVA tenderness Skin General skin exam: elasticity normal, turgor normal and dry skin Neuro General: oriented to person and oriented to place Psych Appearance: grossly normal Mental Status: mental status grossly normal Speech and movement: Normal speech and movement present Assessment & Plan Assessment & Plan (1) Diverticulosis: Code(s): K57.90 - Diverticulosis of intestine, part unspecified, without perforation or abscess without bleeding Plan: Patient has no GI concerning issues at all. Moving his bowels without any issues. Patient will follow-up with our office on as needed basis. Thank you for allowing me to participate in his care Coding Level of Care Code Est Pt Level 3 (51258) Diagnoses Diverticulosis K57.90 Time Spent (min) 25 Comment 15 minutes spent with patient and additional 10 minutes spent reviewing his records
[2023-06-24 08:34] VITALS: BP 123/86; PULSE 84; BMI 24.6
== END 2023-06-24 08:47 | disposition home or self-care (01) ==
PROVIDERS: PCP Family Medicine; Visit Provider Nurse Practitioner Family
DX: K57.90 Diverticulosis of intestine, part unspecified, without perforation or abscess without bleeding (principal)
CPT/HCPCS: 99213

== ENCOUNTER → 2023-06-24 08:25 | Outpatient (BNVA) | payer MEDICARE, MEDICAID, SELFPAY | PROVIDERS: PCP Family Medicine; Visit Provider Nurse Practitioner Family | DX: K57.90 Diverticulosis of intestine, part unspecified, without perforation or abscess without bleeding (principal) | CPT/HCPCS: 99212 ==

== ENCOUNTER 2023-07-26 13:38 | Emergency (ER) | payer MEDICARE, MEDICAID, SELFPAY ==
--- NOTE | ~2023-07-26 | XR_ITS ---
EXAMINATION: XR CHEST CLINICAL INFORMATION: Fall, chest trauma COMPARISON: None available. TECHNIQUE: Frontal view of the chest was obtained. FINDINGS: No significant abnormality is noted involving the heart, lungs, mediastinum, bony thorax or soft tissues. XR/XR chest 1V IMPRESSION: Unremarkable chest exam.
--- NOTE | ~2023-07-26 | CT_ITS ---
EXAMINATION: CT HEAD WITHOUT CONTRAST CT CERVICAL SPINE WITHOUT CONTRAST CLINICAL INFORMATION: Fall with head strike. Neck pain. COMPARISON: None TECHNIQUE: CT of the head and cervical spine were performed without intravenous contrast. Multiplanar reformats were rendered and reviewed. This CT examination was performed using dose optimization techniques as appropriate, variously including the following: *Automated exposure control *Adjustment of mA and/or kV according to patient size (this includes techniques or standardized protocols for targeted exams where dose is matched to indication/reason for exam; i.e. extremities or head) *Use of iterative reconstruction technique DLP: 652 mGy-cm. FINDINGS: CT head: No acute intracranial hemorrhage, large infarction, or mass lesion is seen. Diffuse cortical atrophy and mild bilateral chronic periventricular white matter ischemic change. Extra-axial CSF density in the left frontal region causing mild mass effect, with bridging veins traversing medially. No acute extra-axial collection is appreciated. The ventricles are normal in size and configuration without evidence of hydrocephalus. Mucosal thickening and air-fluid level in the right maxillary sinus. Mucosal thickening involving the frontal sinus infundibula as well as bilateral ethmoid air cells. Opacification of a right ethmoid air cell and air-fluid levels within bilateral ethmoid air cells. Opacification or air-fluid levels involving multiple right mastoid air cells. CT cervical spine: The vertebral body heights appear maintained. No cervical spine fracture is seen. The cervical alignment appears normal. Severe disc degenerative change most notably at C4-C7. Exuberant anterior osteophyte formation. Suspect severe neuroforaminal narrowing at C4-C5 on the right. The paraspinal soft tissues appear within normal limits. The partially imaged lung apices appear clear. CT/CT cervical spine wo IV con IMPRESSION: CT head: No acute intracranial finding. Left frontal subdural hygroma versus chronic subdural hematoma. Acute superimposed on chronic sinusitis. Right mastoiditis. CT cervical spine: No cervical spine fracture or traumatic malalignment identified. Degenerative change.
--- NOTE | 2023-07-26 13:40 | ED.GENADULT ---
HPI - General Adult General Chief complaint: Fall Stated complaint: FALL WITH HEAD STRIKE Time Seen by Provider: 07/26/23 13:41 Source: patient, EMS and other (Worker from home) Mode of arrival: ambulatory Limitations: no limitations History of Present Illness HPI narrative: This is a 58-year-old male history of hypertension, hypercholesterolemia, cerebral palsy, elevated TSH, overweight, unsteady gait, intellectual disability presenting to the emergency department status post witnessed fall, according to EMS [employer] workers reported that patient stood up from the table, falling, hitting his head hard with loss of consciousness for 2 minutes. He is not on blood thinners. After he woke up he said he felt fine. At this moment patient is a good historian and tells me he feels okay he does not remember falling, or waking up after the fall. He tells me nothing is hurting him and he would like to go home. Denies headache, vision changes, dizziness, weakness, chest pain, shortness of breath, nausea, vomiting, abdominal pain. 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 NIH stroke scale 0 in arrived GCS of 15 Related Data Home Medications Medication Instructions Recorded Confirmed lanolin-mineral oil lotion 1 appl topical BID PRN dry skin 06/24/23 Previous Rx's Medication Instructions Recorded miscellaneous medical supply #1 ea 01/09/21 Shower Chair #1 ea 01/10/21 walker #1 ea 02/07/22 hydrocortisone 1 % topical cream 1 appl topical DAILY PRN skin 02/18/22 (Anti-Itch (hydrocortisone)) irritation 30 days #28.4 grams docusate sodium 100 mg capsule 100 mg PO BEDTIME PRN constipation 06/25/22 #90 caps acetaminophen 650 mg 650 mg PO Q8H PRN fever or pain 90 03/20/23 tablet,extended release (Tylenol 8 days #270 tabs Hour) cholecalciferol (vitamin D3) 125 125 mcg PO QAM #30 caps 03/20/23 mcg (5,000 unit) capsule lisinopril 5 mg tablet 5 mg PO DAILY 30 days #30 tabs 05/19/23 polyethylene glycol 3350 17 17 g PO DAILY #510 grams 06/12/23 gram/dose oral powder atorvastatin 20 mg tablet 20 mg PO BEDTIME 30 days #30 tabs 06/26/23 levothyroxine 50 mcg tablet 50 mcg PO DAILY 30 days #30 tabs 06/26/23 carbamide peroxide 6.5 % ear drops 5 drp otic (ear) right Q2D PRN 07/07/23 (Debrox) Cerumen 30 days #15 mL Allergies Allergy/AdvReac Type Severity Reaction Status Date / Time No Known Allergies Allergy Verified 06/24/23 08:34 Review of Systems Review of Systems: Constitutional : No Weight loss, No Fever, No Chills, No Fatigue, No Malaise ENT/Mouth : No sore throat, No Rhinorrhea Eyes: No Eye Pain, No Swelling, No Redness Cardiovascular : No Chest Pain, No SOB, No Dyspnea on Exertion, No Orthopnea, No Edema, No Palpitations Respiratory : No Cough, No Sputum, No Wheezing Gastrointestinal : No Nausea, No Vomiting, No Diarrhea, No Constipation, No abdominal Pain, No Hematochezia, No Melena Genitourinary : No Dysuria, No Urinary Frequency, No Hematuria, Musculoskeletal : No joint pain, No Myalgias, No Joint Swelling Skin : No Skin Lesions, No rash Neuro : No Weakness, No Numbness, No Dizziness, No Headache Psych : No Anxiety/Panic, No Depression All other systems reviewed and are negative Yes all other systems are reviewed and are negative [facility] Past Medical History Attestation statement: The following information was validated with the patient. Source: old records reviewed and nursing notes reviewed Medical History (Updated 07/26/23 @ 14:53 by ANGELITO Wen) Diarrhea Blood in stool Anemia Hypothyroidism Cerebral palsy Surgical History Hx of colonoscopy Social History Social History Housing: Jail Alcohol intake: never Patient Tobacco Use Status: Never used Tobacco Smoked in Last 30 Days: No e-Cigarette/Vaping Use: Never Used Second Hand Smoke Exposure: No Use of substances other than those prescribed or required for medical reasons: No Advance Directives: No Advance Directives Information Provided: No service: No Current occupational status: disabled Current occupational exposures/hazards: No Cognitive needs: No Hearing needs: No Vision needs: No Physical Exam ED Vital Signs: Vital Signs - 24 hr 07/26/23 13:49 07/26/23 14:53 07/26/23 14:54 Temperature 97.4 F Pulse Rate 97 86 82 Respiratory Rate 16 16 Blood Pressure 149/87 H 111/66 125/76 Pulse Oximetry 97 99 Oxygen Delivery Method Room Air Room Air 07/26/23 14:56 07/26/23 14:58 Temperature Pulse Rate 84 94 Respiratory Rate Blood Pressure 123/83 134/80 Pulse Oximetry Oxygen Delivery Method BMI result Body Mass Index 27.9 Course Reevaluation(s) Reevaluation #1: CBC with no acute findings. Chemistry no acute findings requiring intervention. EKG nonischemic, troponin pending. I do not suspect ACS based off presentation. Pending images of CT head and neck. Time: 14:52 Reevaluation #2: Spoke with Juan rowe Neurosurgery PA from [facility] who recommended discharge. States that there is no acute process and the patient won't need neurosurgery follow up. Medical Decision Making Medical Decision Making [facility] Narrative: 1430 58-year-old male presents status post witnessed fall with head strike and loss of consciousness, no complaints at this time. Patient feels well and would like to go home. GCS of 15. NIH stroke scale 0. Physical examination benign. Neuro nonfocal. Cerebellar intact. Likely concussion/closed head injury with loss of consciousness, will rule out intracranial hemorrhage although unlikely. I do not suspect stroke, posterior stroke. No chest pain or shortness of breath unlikely PE, ACS, dissection. Patient well appearing. Alert and oriented x4. Unlikely traumatic injury to, neck, chest, abdomen or pelvis. Plan labs, imaging. Observation Differential Diagnosis Differential Diagnoses: The differential diagnosis associated with the presentation includes Likely concussion/closed head injury with loss of consciousness, will rule out intracranial hemorrhage although unlikely. I do not suspect stroke, posterior stroke. No chest pain or shortness of breath unlikely PE, ACS, dissection. Patient well appearing. Alert and oriented x4. Unlikely traumatic injury to, neck, chest, abdomen or pelvis. Admission/Observation Consideration of admission/observation: Escalation of care including admission/observation considered Unlikely Lab Data [facility] Lab Attestation statement: I reviewed the patient's lab results. 07/26/23 14:10 07/26/23 14:11 Labs: Lab Results 07/26/23 07/26/23 Range/Units 14:10 14:11 WBC 7.8 (4.8-10.8) X10*3/uL RBC 5.20 (4.60-5.80) X10*6/uL Hgb 15.2 (14.0-18.0) g/dl Hct 45.9 (42.0-52.0) % MCV 88.3 (80.0-98.0) fL MCH 29.2 (27.0-33.0) pg MCHC 33.1 (31.0-36.0) g/dl RDW 12.8 (11.0-16.0) % Plt Count 316 (160-400) X10*3/uL MPV 10.5 (9.4-12.4) fL Immature Gran % (Auto) 0.6 H (0.0-0.4) % Neut % (Auto) 67.5 (45-73) % Lymph % (Auto) 18.1 L (20-40) % Emery % (Auto) 9.9 (2-11) % Eos % (Auto) 3.5 (0-4) % Baso % (Auto) 0.4 (0-2) % Lymph # (Auto) 1.4 (1.2-4.9) X10*3/uL Emery # (Auto) 0.8 (0.1-1.2) X10*3/uL Eos # (Auto) 0.3 (0.0-0.4) X10*3/uL Baso # (Auto) 0.0 (0.0-0.2) X10*3/uL Abs Immat Gran (auto) 0.05 H (0.00-0.03) X10*3/uL Absolute Neuts (auto) 5.3 (2.0-8.3) x10*3/uL Absolute Nucleated RBC 0.000 (0.0-0.012) X10*3/uL Nucleated RBC % (auto) 0.0 (0.0-0.2) /100WBC PT 13.5 H (11.1-13.3) SEC INR 1.1 (0.9-1.1) Sodium 144 (135-145) mmol/L Potassium 3.4 D (3.3-5.1) mmol/L Chloride 106 (96-108) mmol/L Carbon Dioxide 25 (22-29) mmol/L Anion Gap 16 (12-20) BUN 14 (9-16) mg/dL Creatinine 0.74 (0.5-1.4) mg/dL Estim Creat Clear Calc 87.1 Estimated GFR > 60 Random Glucose 97 (60-115) mg/dL Calcium 10.1 (8.4-10.2) mg/dL Magnesium 2.3 (1.6-2.6) mg/dL Total Bilirubin 0.6 (0.0-1.0) mg/dL AST 24 (5-37) U/L ALT 24 (0-40) U/L Alkaline Phosphatase 69 (39-117) U/L Troponin I High Sens < 2.7 (<3.5-35.0) ng/L Total Protein 7.4 (6.5-8.0) g/dL Albumin 4.1 (3.5-5.0) g/dL Independent Interpretation I performed an independent interpretation of an: EKG (Ventricular rate of 86, [place] normal, QRS normal, QT/QTC normal. No ST elevations or inversions concerning for acute ischemia.) and CT Scan Radiology Impression Discussion of test interpretation with radiology: I have reviewed the radiologist's reading. Chronic Conditions Patient?s care impacted by: Other (Cerebral palsy, intellectual disability, overweight, hypertension) Social Determinants Patient?s care significantly limited by Social Determinants of Health including: Other Social Determinant of Health Critical Care Time Critical Care Time Critical Care Time: No Discharge Plan Discharge Clinical Impression: Concussion with loss of consciousness Patient Disposition: Home, Self-Care Instructions: Concussion (ED), Post Concussion Syndrome (ED) Additional Instructions: Take your medications as prescribed. If you were prescribed antibiotics today, it is important that you take your medication to their entirety, do not skip any doses, do not finish them early. Follow-up with your primary care provider this week. Return to the emergency department with new or worsening symptoms. Such as fevers, chills, chest pain, shortness of breath, nausea, vomiting, dizziness, headache, vision changes, lethargy In case of emergency call 911 Look out for signs and symptoms of postconcussive syndrome including headache visual disturbances seizure-like activity, somnolence or altered mental status. Prescriptions: No Action (DME) Shower Chair Misc See Rx Instructions .ROUTE .MEDSUPPLY Qty: 1 0RF Rx Instructions: As directed showerchair hydrocortisone [Anti-Itch (HC)] 1 % cream 1 appl topical DAILY PRN (Reason: skin irritation) 30 Days Qty: 28.4 1RF acetaminophen [Tylenol 8 Hour] 650 mg tablet extended release 650 mg PO Q8H PRN (Reason: fever or pain) 90 Days Qty: 270 3RF cholecalciferol (vitamin D3) 125 mcg (5,000 unit) capsule 125 mcg PO QAM Qty: 30 3RF lisinopril 5 mg tablet 5 mg PO DAILY 30 Days Qty: 30 1RF polyethylene glycol 3350 17 gram/dose powder 17 g PO DAILY Qty: 510 1RF levothyroxine 50 mcg tablet 50 mcg PO DAILY 30 Days Qty: 30 2RF atorvastatin 20 mg tablet 20 mg PO BEDTIME 30 Days Qty: 30 2RF Debrox 6.5 % drops 5 drp otic (ear) right Q2D PRN (Reason: Cerumen) 30 Days Qty: 15 1RF (DME) [facility] See Rx Instructions .ROUTE .MEDSUPPLY Qty: 1 0RF Rx Instructions: Shower safety stool. As directed, 999 days/life time. (DME) [facility] See Rx Instructions .ROUTE .MEDSUPPLY Qty: 1 0RF Rx Instructions: Rollator Walker with Wheels, Brakes and Seat. Daily As directed. 999 days Varivax (PF) 1,350 unit/0.5 mL suspension for reconstitution 0.5 ml subcut ONCE Qty: 1 0RF Adacel(Tdap Adolesn/Adult)(PF) 2 Lf-(2.5-5-3-5 mcg)-5Lf/0.5 mL syringe 0.5 ml IM ONCE PRN (Reason: immunization due) Qty: 0.5 0RF lanolin-mineral oil Lotion 1 appl topical BID PRN (Reason: dry skin) docusate sodium 100 mg capsule 100 mg PO BEDTIME PRN (Reason: constipation) Qty: 90 3RF Referrals: [facility] Neuro/Sleep [Provider Group] - 2 days Stand Alone Forms: Work/School Release
--- NOTE | 2023-07-26 13:41 | ECG_ITS ---
Test Reason : FALL Blood Pressure : / mmHG Vent. Rate : 086 BPM Atrial Rate : 086 BPM P-R Int : 166 ms QRS Dur : 094 ms QT Int : 374 ms P-R-T Axes : 063 051 015 degrees QTc Int : 447 ms Normal sinus rhythm Nonspecific T wave abnormality Abnormal ECG No previous ECGs available Referred By: Miriam Mcintyre Electronically Signed By:PRASHANT WHITNEY MD
[2023-07-26 13:49] VITALS: BP 146/92; BP 149/87; PULSE 120; PULSE 97; RESP 16; TEMP 36.3; O2SAT 97; O2SAT 99; BMI 27.9
[2023-07-26 14:15] LABS: MANUAL DIFF FLAG NO
[2023-07-26 14:16] LABS: Basophils Percent Auto 0.4 % (0-2); Eosinophils Absolute Auto 0.3 X10*3/uL (0.0-0.4); Eosinophils Percent Auto 3.5 % (0-4); Hematocrit 45.9 % (42.0-52.0); Hemoglobin 15.2 g/dl (14.0-18.0); Imm Gran Abs Auto 0.05 X10*3/uL (0.00-0.03); Imm Gran Pct Auto 0.6 % (0.0-0.4); Lymphocytes Absolute Auto 1.4 X10*3/uL (1.2-4.9); Lymphocytes Percent Auto 18.1 % (20-40); Mean Corpuscular HGB Conc 33.1 g/dl (31.0-36.0); Mean Corpuscular Hemoglobin 29.2 pg (27.0-33.0); Mean Corpuscular Volume 88.3 fL (80.0-98.0); Mean Platelet Volume 10.5 fL (9.4-12.4); Monocytes Absolute Auto 0.8 X10*3/uL (0.1-1.2); Monocytes Percent Auto 9.9 % (2-11); Neutrophils Absolute Auto 5.3 x10*3/uL (2.0-8.3); Neutrophils Percent Auto 67.5 % (45-73); Platelet Count 316 X10*3/uL (160-400); Red Cell Distribution Width 12.8 % (11.0-16.0); White Blood Count 7.8 X10*3/uL (4.8-10.8)
[2023-07-26 14:32] LABS: INTERNATIONAL NORM RATIO 1.1 (0.9-1.1); Prothrombin Time 13.5 SEC (11.1-13.3)
[2023-07-26 14:42] LABS: Alanine Aminotransferase 24 U/L (0-40); Albumin Level 4.1 g/dL (3.5-5.0); Alkaline Phosphatase 69 U/L (39-117); Anion Gap 16 (12-20); Aspartate Amino Transferase 24 U/L (5-37); Bilirubin Total 0.6 mg/dL (0.0-1.0); Blood Urea Nitrogen 14 mg/dL (9-16); Calcium 10.1 mg/dL (8.4-10.2); Carbon Dioxide 25 mmol/L (22-29); Chloride 106 mmol/L (96-108); Creatinine Clr Calc Pharmacy 87.1; Estimated Glomerular Filt Rate > 60; Glucose Random 97 mg/dL (60-115); Magnesium 2.3 mg/dL (1.6-2.6); Potassium 3.4 mmol/L (3.3-5.1); Sodium 144 mmol/L (135-145); Total Protein 7.4 g/dL (6.5-8.0)
[2023-07-26 14:53] VITALS: BP 111/66; PULSE 86; RESP 16; O2SAT 99
[2023-07-26 14:53] LABS: Troponin-I High Sensitivity < 2.7 ng/L (<3.5-35.0)
[2023-07-26 14:54] VITALS: BP 125/76; PULSE 82
[2023-07-26 14:56] VITALS: BP 123/83; PULSE 84
[2023-07-26 14:58] VITALS: BP 134/80; PULSE 94
== END 2023-07-26 17:10 | disposition home or self-care (01) ==
PROVIDERS: Physician Assistant; Emergency Provider Emergency Medicine
DX: S06.0X9A Concussion with loss of consciousness of unspecified duration, initial encounter (principal); W19.XXXA Unspecified fall, initial encounter; Y93.9 Activity, unspecified; Y92.9 Unspecified place or not applicable; Y99.9 Unspecified external cause status; G80.9 Cerebral palsy, unspecified; I10 Essential (primary) hypertension; E78.00 Pure hypercholesterolemia, unspecified; Z79.899 Other long term (current) drug therapy; Z51.89 Encounter for other specified aftercare
CPT/HCPCS: 36415; 70450; 71045; 72125; 80053; 83735; 84484; 85025; 85610; 93005; 99284

== ENCOUNTER 2023-07-31 08:26 | Outpatient (REF) | payer MEDICARE, MEDICAID, SELFPAY ==
[2023-07-31 11:22] LABS: Appearance Urine Clear; Color Urine Yellow; Glucose Urine UA Negative (Negative); Leukocyte Esterase Urine Negative (Negative); Nitrite Urine Negative (Negative); PH 7.5 (5.0-9.0); Urine Blood Negative (Negative); Urine Ketones Negative (Negative); Urine Protein Negative (Neg-Trace)
[2023-07-31 13:40] LABS: Creatinine Urine 46.14 mg/dL; Microalbumin Urine < 5.0 mg/L
== END 2023-07-31 08:27 | disposition home or self-care (01) ==
LOC: HO.WFDLDS 08:26
PROVIDERS: Visit Provider Family Medicine
DX: Z00.00 Encounter for general adult medical examination without abnormal findings (principal); I10 Essential (primary) hypertension
CPT/HCPCS: 81003; 82043; 82570

== ENCOUNTER 2023-09-01 21:42 | Emergency (ER) | payer MEDICARE, MEDICAID, SELFPAY ==
--- NOTE | ~2023-09-01 | CT_ITS ---
EXAMINATION: CT HEAD WITHOUT CONTRAST CT CERVICAL SPINE WITHOUT CONTRAST CT MAXILLOFACIAL WITHOUT CONTRAST CLINICAL INFORMATION: Fall. COMPARISON: CT dated 07/26/2023 TECHNIQUE: Multidetector volumetric imaging of the head was performed without the administration of intravenous contrast. Images were also obtained with through the cervical spine as well as the facial bones from the frontal sinuses through the mandible. Multiplanar reconstructed images in coronal and sagittal orientations were submitted. This CT examination was performed using dose optimization techniques as appropriate, variously including the following: *Automated exposure control *Adjustment of mA and/or kV according to patient size (this includes techniques or standardized protocols for targeted exams where dose is matched to indication/reason for exam; i.e. extremities or head) *Use of iterative reconstruction technique DOSE: 650 mGy-cm FINDINGS: HEAD: Again seen is a CSF attenuation left frontoparietal extra-axial fluid collection, not significant changed as compared to the prior study. This produces minimal mass effect and the presence of the cortical veins against the underlying cortex, separate from s, unchanged. No new extra-axial fluid collections are identified. There is no evidence of acute intracranial hemorrhage or territorial infarction. No midline shift. Duarte to white matter differentiation is well preserved. Mild enlargement of the ventricles, sulci, and extra-axial CSF spaces is indicative of parenchymal volume loss. A few foci of hypoattenuation in the subcortical and periventricular white matter are most consistent with chronic microangiopathic changes. Calvarium is intact. No scalp hematomas. MAXILLOFACIAL: The mandible, maxilla, pterygoid plates, nasal bones, zygomatic arches, paranasal sinus schwab, and bony orbits are intact. There is diffuse mucosal thickening with the exception of the left sphenoid sinus, more pronounced as compared the prior study. No air-fluid levels. Partial right mastoid effusion, unchanged. No appreciable skull base fractures are identified. No acute orbital findings. Orbits are intact. Tonsillar calcifications are noted. No retropharyngeal or parapharyngeal fluid collections. CERVICAL SPINE: Vertebral body heights are normal. No fractures of the vertebral bodies or posterior elements. No acute subluxation. Mild anterolisthesis of C5 on C6 and C7 on T1 is chronic and unchanged. Degenerative changes are present at the craniocervical and atlantoaxial articulations, though normal alignment is maintained. Multiple degenerative disc disease is evident at the cervical spine, most pronounced at C4-C5, C5-C6, and C6 C7 with loss of intervertebral disc height, endplate osteophytes, and uncovertebral osteophytes. There is marked tendinopathy at multiple levels, most notably at C2-C3 and C5-C6 on the right and C7-T1 bilaterally Posterior disc osteophyte complex at C6-C7 at C5-C6 produce at least mild central canal narrowing. Multilevel neural foraminal encroachment is produced by uncovertebral and facet osteophytes. No significant paravertebral soft tissue swelling. Atherosclerotic calcifications are present in the carotid arteries. Imaged portions of the lung apices are clear. CT/CT cervical spine wo IV con IMPRESSION: 1. No acute intracranial pathology. 2. No acute facial fractures. 3. No acute fracture or acute malalignment in the cervical spine. 4. Chronic left frontoparietal extra-axial fluid collection is unchanged, likely a subdural hygroma or chronic subdural hematoma. 5. Pansinus mucosal disease, more pronounced as the prior 6. Marked multilevel degenerative spondylosis in the cervical spine. 7. Unchanged partial right mastoid effusion
[2023-09-01 21:55] VITALS: BP 143/93; BP 178/104; PULSE 91; PULSE 99; RESP 16; TEMP 37.1; O2SAT 94; O2SAT 96; BMI 29.9
--- NOTE | 2023-09-01 21:59 | ECG_ITS ---
Test Reason : FALL Blood Pressure : / mmHG Vent. Rate : 083 BPM Atrial Rate : 083 BPM P-R Int : 156 ms QRS Dur : 088 ms QT Int : 368 ms P-R-T Axes : 058 057 037 degrees QTc Int : 432 ms Normal sinus rhythm Normal ECG When compared with ECG of 26-JUL-2023 13:57, Nonspecific T wave abnormality no longer evident in Anterolateral leads Referred By: Luis Daniel Wright Electronically Signed By:PRASHANT WHITNEY MD
--- NOTE | 2023-09-01 22:02 | ED.GENADULT ---
HPI - General Adult General Chief complaint: Fall Stated complaint: FALL, NOSE LAC, +HEAD STRIKE, +LOC Time Seen by Provider: 09/01/23 21:45 Source: patient, RN notes reviewed and old records reviewed Mode of arrival: EMS Limitations: other (intellectual disability at baseline) History of Present Illness HPI narrative: 58-year-old male past medical history significant for intellectual disability, hypertension, hyperlipidemia, hypothyroidism, unsteady gait presents for evaluation after a fall. Per EMS, the [facility] a [facility] it is coming [facility] the [facility] He was sitting down and when he tried to stand up his right leg was ?asleep. ? When the patient tried to walk using his walker he fell forward striking his face on the ground The patient does not remember the actual fall He has a laceration to the bridge of the nose He denies any pain including neck pain, chest pain, abdominal pain, back pain, hip pain Patient is not on any anticoagulant No other complaints or concerns at this time. The patient reports that he feels well. He arrives in a C-collar Related Data Home Medications Medication Instructions Recorded Confirmed lanolin-mineral oil lotion 1 appl topical BID PRN dry skin 06/24/23 Previous Rx's Medication Instructions Recorded miscellaneous medical supply #1 ea 01/09/21 Shower Chair #1 ea 01/10/21 walker #1 ea 02/07/22 hydrocortisone 1 % topical cream 1 appl topical DAILY PRN skin 02/18/22 (Anti-Itch (hydrocortisone)) irritation 30 days #28.4 grams docusate sodium 100 mg capsule 100 mg PO BEDTIME PRN constipation 06/25/22 #90 caps acetaminophen 650 mg 650 mg PO Q8H PRN fever or pain 90 03/20/23 tablet,extended release (Tylenol 8 days #270 tabs Hour) cholecalciferol (vitamin D3) 125 125 mcg PO QAM #30 caps 03/20/23 mcg (5,000 unit) capsule lisinopril 5 mg tablet 5 mg PO DAILY 30 days #30 tabs 05/19/23 polyethylene glycol 3350 17 17 g PO DAILY #510 grams 06/12/23 gram/dose oral powder atorvastatin 20 mg tablet 20 mg PO BEDTIME 30 days #30 tabs 06/26/23 levothyroxine 50 mcg tablet 50 mcg PO DAILY 30 days #30 tabs 06/26/23 carbamide peroxide 6.5 % ear drops 5 drp otic (ear) right Q2D PRN 07/07/23 (Debrox) Cerumen 30 days #15 mL Allergies Allergy/AdvReac Type Severity Reaction Status Date / Time No Known Allergies Allergy Verified 06/24/23 08:34 Review of Systems Constitutional: Constitutional: Reports frequent falls and Denies headache(s) Eyes: Eyes: Denies blurry vision ENT: Denies dizziness and Denies headache(s) Cardiovascular: Cardiovascular: Denies chest pain and Denies dyspnea Respiratory: Respiratory: Denies cough and Denies dyspnea Gastrointestinal: Gastrointestinal: Denies abdominal pain, Denies nausea and Denies vomiting Musculoskeletal: Musculoskeletal: Denies back pain, Denies arthralgias and Reports numbness (right leg) Integumentary/Breasts: Skin/Breast: Denies rash Neurologic: Denies dizziness, Reports frequent falls, Denies headache(s) and Reports numbness (right leg) Psychiatric: Psychiatric: Denies depression PMFSH Past Medical History Medical History (Updated 09/02/23 @ 00:23 by Luis Daniel Wright) Diarrhea Blood in stool Anemia Hypothyroidism Cerebral palsy Surgical History Hx of colonoscopy Social History Social History Housing: [facility] Alcohol intake: never Patient Tobacco Use Status: Never used Tobacco Smoked in Last 30 Days: No e-Cigarette/Vaping Use: Never Used Second Hand Smoke Exposure: No Use of substances other than those prescribed or required for medical reasons: No Advance Directives: No Advance Directives Information Provided: No service: No Current occupational status: disabled Current occupational exposures/hazards: No Cognitive needs: No Hearing needs: No Vision needs: No Physical Exam ED Vital Signs: Vital Signs - 24 hr 09/01/23 21:55 09/01/23 23:39 Temperature 98.7 F Pulse Rate 91 83 Respiratory Rate 16 18 Blood Pressure 143/93 H 143/88 H Pulse Oximetry 96 98 Oxygen Delivery Method Room Air Room Air BMI result Body Mass Index 29.9 Const General: healthy appearing, comfortable, no acute distress, alert and awake Nutritional Appearance: well nourished Orientation/consciousness: patient oriented x3 HENMT Other: Patient has an approximately 1 cm linear laceration to the bridge of the nose. Minimal active bleeding. Throat: Yes posterior oropharynx normal Eyes Eyelids: Yes eyelids normal Conjunctivae: conjunctivae normal Sclerae: sclerae normal Corneas: corneas normal Pupils: Equal, round and reactive pupils present EOM: EOMs intact bilaterally Neck Other: Patient does have mild C-spine tenderness and is in a C-collar Resp Effort & Inspection: normal respiratory effort, able to speak in complete sentences and not labored Cardio Rate: regular rate Rhythm: regular rhythm GI Inspection: No distended Palpation (GI): Soft to palpation, not firm, nontender, no guarding and not rigid Skin General skin exam: no rashes or lesions noted and elasticity normal Neuro General: patient oriented x3 Cranial nerves: Yes CN's II-XII intact bilaterally, Yes Equal, round and reactive pupils present and Yes Bilaterally intact EOM present Cognition (Neuro): normal cognition Extrem Other: Moving all extremities well without any obvious deformities Course Reevaluation(s) Reevaluation #1: Patient's workup unremarkable, this includes his CT imaging, EKG, labs. UA was not collected yet no complaints of UTI. Will not hold him here for this. A small amount of Exofin skin glue was applied to the small laceration to bridge the nose after cleaning the area. The patient's tetanus is up-to-date as of February of last year Time: 00:14 Reevaluation #2: Patient has staff from his [facility] present that report he had a witnessed fall when attempting to stand up from his seated rolling walker. Time: 00:22 Medical Decision Making Medical Decision Making [facility] Narrative: 58-year-old male presents for evaluation after a fall. This was witnessed by staff at his facility. There is no staff present to discuss with at the bone. Will get an EKG, basic labs, CT scan of the brain, cervical spine, facial bones. Patient denies any other injuries, he is able to move all extremities without any difficulty or pain. Further workup as indicated Differential Diagnosis Differential Diagnoses: The differential diagnosis associated with the presentation includes Mechanical fall Syncope Intracranial hemorrhage Facial fracture Laceration cervical fracture Cervical strain Lab Data [facility] Lab Attestation statement: I reviewed the patient's lab results. No leukocytosis. The patient has a very mild anemia. Patient has no significant lab abnormalities. 09/01/23 22:17 11/20/23 22:17 Labs: Lab Results 09/01/23 Range/Units 22:17 WBC 9.5 (4.8-10.8) X10*3/uL RBC 4.66 (4.60-5.80) X10*6/uL Hgb 13.6 L (14.0-18.0) g/dl Hct 41.6 L (42.0-52.0) % MCV 89.3 (80.0-98.0) fL MCH 29.2 (27.0-33.0) pg MCHC 32.7 (31.0-36.0) g/dl RDW 12.8 (11.0-16.0) % Plt Count 302 (160-400) X10*3/uL MPV 10.4 (9.4-12.4) fL Immature Gran % (Auto) 0.6 H (0.0-0.4) % Neut % (Auto) 67.3 (45-73) % Lymph % (Auto) 17.1 L (20-40) % [place] % (Auto) 11.1 H (2-11) % Eos % (Auto) 3.5 (0-4) % Baso % (Auto) 0.4 (0-2) % Lymph # (Auto) 1.6 (1.2-4.9) X10*3/uL [place] # (Auto) 1.1 (0.1-1.2) X10*3/uL Eos # (Auto) 0.3 (0.0-0.4) X10*3/uL Baso # (Auto) 0.0 (0.0-0.2) X10*3/uL Abs Immat Gran (auto) 0.06 H (0.00-0.03) X10*3/uL Absolute Neuts (auto) 6.4 (2.0-8.3) x10*3/uL Absolute Nucleated RBC 0.000 (0.0-0.012) X10*3/uL Nucleated RBC % (auto) 0.0 (0.0-0.2) /100WBC Sodium 139 (135-145) mmol/L Potassium 4.0 (3.3-5.1) mmol/L Chloride 105 (96-108) mmol/L Carbon Dioxide 28 (22-29) mmol/L Anion Gap 10 L (12-20) BUN 18 H (9-16) mg/dL Creatinine 0.81 (0.5-1.4) mg/dL Estim Creat Clear Calc 82.2 Estimated GFR > 60 Random Glucose 103 (60-115) mg/dL Calcium 9.4 D (8.4-10.2) mg/dL Total Bilirubin 0.4 (0.0-1.0) mg/dL AST 24 (5-37) U/L ALT 27 (0-40) U/L Alkaline Phosphatase 67 (39-117) U/L Troponin I High Sens < 2.7 (<3.5-35.0) ng/L Total Protein 7.3 (6.5-8.0) g/dL Albumin 3.9 (3.5-5.0) g/dL Lipase 18 (8-78) U/L Independent Interpretation I performed an independent interpretation of an: CT Scan (No obvious intracranial hemorrhage) Radiology Impression Discussion of test interpretation with radiology: I have reviewed the radiologist's reading. Radiologist Impression: No facial fractures, no intracranial hemorrhage, no cervical malalignment Discharge Plan Discharge Clinical Impression: Fall, Simple laceration of face Patient Disposition: Home, Self-Care Instructions: Fall Prevention (ED) Additional Instructions: Your workup in the emergency department today was reassuring. This includes your imaging, blood work. You had skin glue applied to your laceration. Keep the area clean and dry for 24 hours. After that this is water proof. If should dissolve on its own in about 1 week Follow-up with your primary doctor Prescriptions: No Action (DME) Shower Chair Misc See Rx Instructions .ROUTE .MEDSUPPLY Qty: 1 0RF Rx Instructions: As directed showerchair hydrocortisone [Anti-Itch (HC)] 1 % cream 1 appl topical DAILY PRN (Reason: skin irritation) 30 Days Qty: 28.4 1RF acetaminophen [Tylenol 8 Hour] 650 mg tablet extended release 650 mg PO Q8H PRN (Reason: fever or pain) 90 Days Qty: 270 3RF cholecalciferol (vitamin D3) 125 mcg (5,000 unit) capsule 125 mcg PO QAM Qty: 30 3RF lisinopril 5 mg tablet 5 mg PO DAILY 30 Days Qty: 30 1RF polyethylene glycol 3350 17 gram/dose powder 17 g PO DAILY Qty: 510 1RF levothyroxine 50 mcg tablet 50 mcg PO DAILY 30 Days Qty: 30 2RF atorvastatin 20 mg tablet 20 mg PO BEDTIME 30 Days Qty: 30 2RF Debrox 6.5 % drops 5 drp otic (ear) right Q2D PRN (Reason: Cerumen) 30 Days Qty: 15 1RF (DME) miscellaneous medical supply [facility] [place] See Rx Instructions .ROUTE .MEDSUPPLY Qty: 1 0RF Rx Instructions: Shower safety stool. As directed, 999 days/life time. (DME) walker [facility] [place] See Rx Instructions .ROUTE .MEDSUPPLY Qty: 1 0RF Rx Instructions: Rollator Walker with Wheels, Brakes and Seat. Daily As directed. 999 days Varivax (PF) 1,350 unit/0.5 mL suspension for reconstitution 0.5 ml subcut ONCE Qty: 1 0RF Adacel(Tdap Adolesn/Adult)(PF) 2 Lf-(2.5-5-3-5 mcg)-5Lf/0.5 mL syringe 0.5 ml IM ONCE PRN (Reason: immunization due) Qty: 0.5 0RF lanolin-mineral oil Lotion 1 appl topical BID PRN (Reason: dry skin) docusate sodium 100 mg capsule 100 mg PO BEDTIME PRN (Reason: constipation) Qty: 90 3RF
[2023-09-01 22:22] LABS: MANUAL DIFF FLAG NO
[2023-09-01 22:34] LABS: Basophils Percent Auto 0.4 % (0-2); Eosinophils Absolute Auto 0.3 X10*3/uL (0.0-0.4); Eosinophils Percent Auto 3.5 % (0-4); Hematocrit 41.6 % (42.0-52.0); Hemoglobin 13.6 g/dl (14.0-18.0); Imm Gran Abs Auto 0.06 X10*3/uL (0.00-0.03); Imm Gran Pct Auto 0.6 % (0.0-0.4); Lymphocytes Absolute Auto 1.6 X10*3/uL (1.2-4.9); Lymphocytes Percent Auto 17.1 % (20-40); Mean Corpuscular HGB Conc 32.7 g/dl (31.0-36.0); Mean Corpuscular Hemoglobin 29.2 pg (27.0-33.0); Mean Corpuscular Volume 89.3 fL (80.0-98.0); Mean Platelet Volume 10.4 fL (9.4-12.4); Monocytes Absolute Auto 1.1 X10*3/uL (0.1-1.2); Monocytes Percent Auto 11.1 % (2-11); Neutrophils Absolute Auto 6.4 x10*3/uL (2.0-8.3); Neutrophils Percent Auto 67.3 % (45-73); Platelet Count 302 X10*3/uL (160-400); Red Blood Count 4.66 X10*6/uL (4.60-5.80); Red Cell Distribution Width 12.8 % (11.0-16.0); White Blood Count 9.5 X10*3/uL (4.8-10.8)
[2023-09-01 22:38] LABS: Alanine Aminotransferase 27 U/L (0-40); Albumin Level 3.9 g/dL (3.5-5.0); Alkaline Phosphatase 67 U/L (39-117); Anion Gap 10 (12-20); Aspartate Amino Transferase 24 U/L (5-37); Bilirubin Total 0.4 mg/dL (0.0-1.0); Blood Urea Nitrogen 18 mg/dL (9-16); Calcium 9.4 mg/dL (8.4-10.2); Carbon Dioxide 28 mmol/L (22-29); Chloride 105 mmol/L (96-108); Creatinine Clr Calc Pharmacy 82.2; Estimated Glomerular Filt Rate > 60; Glucose Random 103 mg/dL (60-115); Lipase 18 U/L (8-78); Sodium 139 mmol/L (135-145); Total Protein 7.3 g/dL (6.5-8.0)
[2023-09-01 22:47] LABS: Troponin-I High Sensitivity < 2.7 ng/L (<3.5-35.0)
[2023-09-01 23:39] VITALS: BP 143/88; PULSE 83; RESP 18; O2SAT 98
[2023-09-02 00:28] VITALS: BP 143/96; PULSE 88; RESP 18; O2SAT 99
== END 2023-09-02 00:40 | disposition home or self-care (01) ==
PROVIDERS: Physician Assistant; Emergency Provider Internal Medicine
DX: S01.21XA Laceration without foreign body of nose, initial encounter (principal); W18.39XA Other fall on same level, initial encounter; Y93.89 Activity, other specified; Y92.049 Unspecified place in boarding-house as the place of occurrence of the external cause; Y99.9 Unspecified external cause status; E78.5 Hyperlipidemia, unspecified; I10 Essential (primary) hypertension; Z79.899 Other long term (current) drug therapy
CPT/HCPCS: 12011; 36415; 70450; 70486; 72125; 80053; 83690; 84484; 85025; 93005; 99284

== ENCOUNTER 2023-09-03 08:29 | Outpatient (AMB) | payer MEDICARE, MEDICAID, SELFPAY ==
--- NOTE | 2023-09-03 08:40 | A.OFFPC_ITS ---
Vital Signs 09/03/23 08:41 Height 5 ft Weight 138 lb 4 oz BMI 27.0 BP 122/80 Blood Pressure Location Lt brachial Position Sitting Respiration 13 Pulse 81 Pulse Source Pulse Oximeter Temp 97.8 F Temp Source Temporal Artery Scan Pulse Oximetry (%) 100 Oxygen Delivery Method Room Air Intake Visit Reasons: [facility] [place]: Patient states that recently when he was coming to the appointment and made patient laugh and it seemed like patient started choking and eyes were kind of rolled back. Staff is concerned due to him having multiple falls this year. Staff states that that he thinks that there is weakness in one or both legs thats causing fall. Picture Copyist Required: No Accompanied by: Staff Allergies No Known Allergies Allergy (Verified 09/03/23 08:49) Tobacco use date assessed: 04/04/23 Dental Screening Dental Screen Date: 09/03/23 Did you have a dental visit in the last 12 months?: Yes Did you have a dental problem in the last 6 months where you did not have access to dental care?: No Was dental information given to patient?: Patient has dentist HPI [facility] [place]/ HPI Details 58 y/o male presents to f/u [facility] visit fo r a fall 09/02/23. Witnessed?Mechanical?fall?on?09/01/2023 as?patient?was?attempting?to?stand?up?and?use?his?walker. + head?strike?and?brief?loss?of?consciousness. + laceration?at?bridge?of?nose. CT?scan?of?head?and?neck?were?negative. EKG?unremarkable. Laceration?was?cleaned?up?and?repaired?with cyanotic?curling?glue. He?is?up-to-date?with?his?tetanus?shot?as?of?last?year They continue to do exercises to strengthen his knees and lower extremities. HPI Comments History of Present Illness Details Documentation assistance for Manny Cardona MD, was provided by Angel Jaramillo,? [employer] Machine Operator Assistant on 09/03/2023 9:05 AM EST. I, Dr. Cardona, have read, observed, and verified documentation.? [facility] Medical History (Updated 09/03/23 @ 09:05 by Angel Jaramillo) Diarrhea Blood in stool Anemia Hypothyroidism Cerebral palsy Surgical History Hx of colonoscopy Housing: Other ([facility]) Alcohol intake: never Patient Tobacco Use Status: Never used Tobacco e-Cigarette/Vaping Use: Never Used Second Hand Smoke Exposure: No service: No Current occupational status: disabled Current occupational exposures/hazards: No Cognitive needs: Yes Hearing needs: Yes Vision needs: No Questionnaire HUSSEIN-7 AMB Questionnaire HUSSEIN-7 Date HUSSEIN - 7 assessed: 05/28/22 Source: Developed by Drs. Dat Cruz, Geetha Perez, Jean Carlos López and colleagues, with an educational jimmie from [employer]. Review of Systems Const Denies chills, Denies fatigue, Denies fever(s), Denies headache(s) and Denies weakness ENT Denies dizziness and Denies headache(s) Card Denies dyspnea Resp Denies cough, Denies dyspnea, Denies wheezing and Denies other (shortness of breath) Musc Denies numbness and Denies tingling Neuro Denies dizziness, Denies headache(s), Denies numbness, Denies tingling and Denies weakness Psych Denies anxiety and Denies depression Endo Denies fatigue Aller/Immun Denies wheezing Physical exam (Primary Care) Vital Signs: Last Vital Signs Temp 97.8 F 09/03/23 08:41 Pulse 81 09/03/23 08:41 Resp 13 09/03/23 08:41 BP 122/80 09/03/23 08:41 Pulse Ox 100 09/03/23 08:41 Oxygen Delivery Method Room Air 09/03/23 08:41 BMI result Body Mass Index 27.0 Tobacco/Smoking Status: Tobacco use Status Tobacco use date assessed 04/04/23 09/03/23 08:46 Patient Tobacco Use Status Never used Tobacco 09/03/23 08:46 e-Cigarette/Vaping Use Never Used 09/03/23 08:46 Const General: well developed; No acute distress Nutritional Appearance: well nourished Orientation/consciousness: patient oriented x3 HENMT Head: Yes normocephalic and Yes atraumatic Eyes General: appearance normal, both eyes and all related structures Pupils: Equal, round and reactive pupils present EOM: EOMs intact bilaterally Resp Effort & Inspection: normal respiratory effort Auscultation: clear to auscultation bilaterally Cardio Rate: regular rate Rhythm: regular rhythm Heart sounds: S1 normal heart sound present, S2 normal heart sound present, no gallops, no murmurs and no rubs Neuro General: patient oriented x3 and gait normal Cranial nerves: Yes CN's II-XII intact bilaterally and Yes Equal, round and reactive pupils present Psych Affect: normal affect Assessment and Plan Assessment & Plan (1) Status post fall: Code(s): Z91.81 - History of falling Plan: Appears?to?have?been?a?mechanical?fall. CT?of?head?and?neck?did?not?reveal?any?injuries?and?patient?has?no?complaints?of ?pain?except?intermittently?at?the?bridge?of?his?nose?which?is?mild. Cranial?nerves?intact. Cardiac?evaluation?normal?and?his?EKG?at?the?hospital?was?unremarkable. I?think?he?could?benefit?from?additional?physical?therapy?and?walker?training.?? He?should?be?encouraged?to?take?his?time?when?standing?up?to?use?walker. (2) Laceration of face: Code(s): S01.81XA - Laceration without foreign body of other part of head, initial encounter Plan: Laceration?at?the?bridge?of?his?nose?is?repaired?with?cyanotic?like?glue?and?has ?good?approximation. This?should?wear?off?on?its?own. Can?let?water?run?on?this?and?gently?pat?dry He?is?up-to-date?with?his?tetanus?shot Watch?for?increased?swelling,?redness?or?any?drainage. Call?physician?for?any?of?these?signs?of?infection; would?consider?using?an?antibiotic. (3) Unsteady gait: Code(s): R26.81 - Unsteadiness on feet (4) Lower extremity weakness: Code(s): R29.898 - Other symptoms and signs involving the musculoskeletal system Orders: Orders Comprehensive Gonzales. Panel Fast Today Z00.00 - Encounter for general adult medical examination without abnormal findings Lipid Panel Today Z00.00 - Encounter for general adult medical examination without abnormal findings UA and rflx microscopic Today Z00.00 - Encounter for general adult medical examination without abnormal findings Urine Dipstick Today W19.XXXA - Unspecified fall, initial encounter Thyroid Stimulating Hormone Today E03.9 - Hypothyroidism, unspecified Triiodothyronine T3 Total Today E03.9 - Hypothyroidism, unspecified Complete Blood Count Auto Diff Today Z00.00 - Encounter for general adult m edical examination without abnormal findings Free T4 (Free Thyroxine) Today E03.9 - Hypothyroidism, unspecified Coding Level of Care Code Est Pt Level 4 ([id number]) Diagnoses Status post fall Z91.81 Laceration of face S01.81XA Unsteady gait R26.81 Lower extremity weakness R29.898
[2023-09-03 08:41] VITALS: BP 122/80; PULSE 81; RESP 13; TEMP 36.6; O2SAT 100; BMI 27.0
== END 2023-09-03 09:12 | disposition home or self-care (01) ==
PROVIDERS: PCP Family Medicine; Visit Provider Family Medicine
DX: S01.81XA Laceration without foreign body of other part of head, initial encounter (principal); Z91.81 History of falling; R26.81 Unsteadiness on feet; G80.9 Cerebral palsy, unspecified; R29.898 Other symptoms and signs involving the musculoskeletal system
CPT/HCPCS: 99214

== ENCOUNTER 2023-09-24 08:02 | Outpatient (REF) | payer MEDICARE, MEDICAID, SELFPAY ==
[2023-09-24 08:18] LABS: MANUAL DIFF FLAG NO
[2023-09-24 09:12] LABS: Basophils Absolute Auto 0.1 X10*3/uL (0.0-0.2); Basophils Percent Auto 0.7 % (0-2); Eosinophils Absolute Auto 0.4 X10*3/uL (0.0-0.4); Eosinophils Percent Auto 5.5 % (0-4); Hematocrit 46.2 % (42.0-52.0); Hemoglobin 14.6 g/dl (14.0-18.0); Imm Gran Abs Auto 0.04 X10*3/uL (0.00-0.03); Imm Gran Pct Auto 0.5 % (0.0-0.4); Lymphocytes Absolute Auto 1.7 X10*3/uL (1.2-4.9); Lymphocytes Percent Auto 22.1 % (20-40); Mean Corpuscular HGB Conc 31.6 g/dl (31.0-36.0); Mean Corpuscular Hemoglobin 28.7 pg (27.0-33.0); Mean Corpuscular Volume 90.8 fL (80.0-98.0); Mean Platelet Volume 10.9 fL (9.4-12.4); Monocytes Absolute Auto 0.6 X10*3/uL (0.1-1.2); Monocytes Percent Auto 8.2 % (2-11); Neutrophils Absolute Auto 4.8 x10*3/uL (2.0-8.3); Platelet Count 318 X10*3/uL (160-400); Red Blood Count 5.09 X10*6/uL (4.60-5.80); Red Cell Distribution Width 12.9 % (11.0-16.0); White Blood Count 7.7 X10*3/uL (4.8-10.8)
[2023-09-24 09:50] LABS: Alanine Aminotransferase 27 U/L (0-40); Albumin Level 4.2 g/dL (3.5-5.0); Alkaline Phosphatase 89 U/L (39-117); Anion Gap 13 (12-20); Aspartate Amino Transferase 27 U/L (5-37); Bilirubin Total 0.5 mg/dL (0.0-1.0); Blood Urea Nitrogen 15 mg/dL (9-16); Calcium 9.7 mg/dL (8.4-10.2); Carbon Dioxide 27 mmol/L (22-29); Chloride 105 mmol/L (96-108); Cholesterol 146 mg/dL (<200); Estimated Glomerular Filt Rate > 60; Glucose Fasting 91 mg/dL (60-99); HDL Cholesterol 39 mg/dL (>40); LDL Cholesterol Calculated 89 mg/dL (<100); Potassium 3.8 mmol/L (3.3-5.1); Sodium 141 mmol/L (135-145); Total Protein 7.7 g/dL (6.5-8.0); Triglycerides 94 mg/dL (<150)
[2023-09-24 10:16] LABS: Free T4 (Free Thyroxine) 1.02 ng/dL (0.71-1.85); Thyroid Stimulating Hormone 1.69 uIU/mL (0.32-4.0)
[2023-09-24 10:33] LABS: Appearance Urine Clear; Color Urine Yellow; Glucose Urine UA Negative (Negative); Leukocyte Esterase Urine Negative (Negative); Nitrite Urine Negative (Negative); Specific Gravity - Urine <= 1.005 (1.005-1.025); Urine Blood Negative (Negative); Urine Ketones Negative (Negative); Urine Protein Negative (Neg-Trace)
[2023-09-25 12:59] LABS: Triiodothyronine T3 Total 123 ng/dL (76-181)
== END 2023-09-24 08:03 | disposition home or self-care (01) ==
LOC: HO.LAB 08:02
PROVIDERS: PCP Family Medicine; Visit Provider Family Medicine
DX: Z00.00 Encounter for general adult medical examination without abnormal findings (principal); E03.9 Hypothyroidism, unspecified
CPT/HCPCS: 36415; 80053; 80061; 81003; 84439; 84443; 84480; 85025

== ENCOUNTER 2023-09-25 10:06 | Outpatient (AMB) | payer MEDICARE, MEDICAID, SELFPAY ==
[2023-09-25 10:09] VITALS: BP 126/62; PULSE 70; RESP 16; O2SAT 99; BMI 27.5
--- NOTE | 2023-09-25 10:09 | MHC.PC.OV ---
Vital Signs 09/25/23 10:09 Height 5 ft Weight 141 lb BMI 27.5 BP 126/62 Blood Pressure Location Lt brachial Position Sitting Respiration 16 Pulse 70 Pulse Source Pulse Oximeter Pulse Oximetry (%) 99 Oxygen Delivery Method Room Air Intake Visit Reasons: Follow-up hypothyroidism and hypercholesterol Intake Note: Patient is here to follow up on hypothyroid and hypercholesterol. Patient had a fall in the last year, ended up going to the ER. Allergies No Known Allergies Allergy (Verified 09/25/23 10:12) Tobacco use date assessed: 09/25/23 Dental Screening Dental Screen Date: 09/25/23 Did you have a dental visit in the last 12 months?: Yes Did you have a dental problem in the last 6 months where you did not have access to dental care?: No Was dental information given to patient?: No HPI Follow-up hypothyroidism and hypercholesterol HPI Details 58 y/o male presents to f/u hyporthyroidism and hypercholesterolemia. Had started him on artovastatin 20mg and levothyroxine 50 mcg daily. Labs were drawn 09/24/23. Reviewed labs with pt. Triglycerides 94. TC 146. LDL 89. HDL low at 39. TSH level 1.69 uIU/mL and is fine. PFSH Medical History Diarrhea Blood in stool Anemia Hypothyroidism Cerebral palsy Surgical History Hx of colonoscopy Social History Housing: Other (Longterm) Alcohol intake: never Patient Tobacco Use Status: Never used Tobacco e-Cigarette/Vaping Use: Never Used Second Hand Smoke Exposure: No service: No Current occupational status: disabled Current occupational exposures/hazards: No Cognitive needs: Yes Hearing needs: Yes Vision needs: No Questionnaire PHQ-9 Over the last 2 weeks, how often have you been bothered by any of the following problems? 1. Little interest or pleasure in doing things: not at all 2. Feeling down, depressed, or hopeless: not at all 3. Trouble falling or staying asleep, or sleeping too much: not at all 4. Feeling tired or having little energy: not at all 5. Poor appetite or overeating: not at all 6. Feeling bad about yourself - or that you are a failure or have let yourself or your family down: not at all 7. Trouble concentrating on things, such as reading the newspaper or watching television: not at all 8. Moving or speaking so slowly that other people could have noticed. Or the opposite - being so fidgety or restless that you have been moving around a lot more than usual: not at all 9. Thoughts that you would be better off or of hurting yourself in some way: not at all Total score: 0 Depression Screening Interpretation: Negative Depression Screening Done: Yes 59207 - PHQ-9 Billing: Yes Source: Developed by Drs. Dat Cruz, Geetha Perez, Jean Carlos López and colleagues, with an educational jimmie from [employer]. Thrive Questionnaire Date Thrive assessed: 09/25/23 I am a: Patient What is your living situation today?: I have a steady place to live Within the past 12 months, did the food you bought not last and you didn't have the money to get more?: Never true Within the past 12 months, did you worry whether your food would run out before you got money to buy more?: Never true Do you have trouble paying for medicines?: No Do you have trouble getting transportation to medical appointments?: No Do you have trouble paying your heating and electricity bill?: No Do you have trouble taking care of your child, family member or friend?: No Do you have trouble with day-to-day activities such as bathing, preparing meals, shopping, managing finances, etc.?: No Are you currently unemployed and looking for a job?: No Are you interested in more education?: No AUDIT C Alcohol Use Questionnaire (AUDIT-C) 1. How often do you have a drink containing alcohol?: Never 3. How often do you have six or more drinks on one occasion?: Never Total Score: 0 HUSSEIN-7 AMB Questionnaire HUSSEIN-7 Date HUSSEIN - 7 assessed: 09/25/23 Feeling nervous, anxious, or on edge: 0 = Not at all Not being able to stop or control worryin = Not at all Worrying too much about different things: 0 = Not at all Trouble relaxin = Not at all Being so restless that it is hard to sit still: 0 = Not at all Becoming easily annoyed or irritable: 0 = Not at all Feeling afraid as if something awful might happen: 0 = Not at all Total HUSSEIN-7 score (0-4 normal; 5-9 mild; 10-14 moderate; 15-21 severe): 0 Source: Developed by Drs. Dat Cruz, Geetha Perez, Jean Carlos López and colleagues, with an educational jimmie from [employer]. HUSSEIN-7 Assessment Billing HUSSEIN-7 Assessment Tool: HUSSEIN-7 Assessment 48137 Review of Systems Const Denies chills, Denies fatigue, Denies fever(s), Denies headache(s) and Denies weakness ENT Denies dizziness and Denies headache(s) Card Denies chest pain, Denies lightheadedness, Denies dyspnea and Denies other (Palpitations) Resp Denies cough, Denies dyspnea, Denies wheezing and Denies other ( shortness of breath) Musc Denies numbness and Denies tingling Neuro Denies dizziness, Denies headache(s), Denies numbness, Denies tingling, Denies paresthesias and Denies weakness Psych Denies anxiety and Denies depression Endo Denies fatigue Aller/Immun Denies wheezing Physical exam (Primary Care) Vital Signs: Last Vital Signs Pulse 70 09/25/23 10:09 Resp 16 09/25/23 10:09 BP 126/62 09/25/23 10:09 Pulse Ox 99 09/25/23 10:09 Oxygen Delivery Method Room Air 09/25/23 10:09 BMI result Body Mass Index 27.5 Tobacco/Smoking Status: Tobacco use Status Tobacco use date assessed 09/25/23 09/25/23 10:17 Patient Tobacco Use Status Never used Tobacco 09/25/23 10:17 e-Cigarette/Vaping Use Never Used 09/25/23 10:17 PHQ-9: PHQ-9 Score PHQ-9: Total score 0 09/25/23 10:23 Depression Screening Interpretation: Negative Thrive Assessment: Date of Thrive Assessment Date Thrive assessed 09/25/23 09/25/23 10:23 Const General: no acute distress and well developed Nutritional Appearance: well nourished Orientation/consciousness: patient oriented x3 HENMT Head: Yes normocephalic and Yes atraumatic Eyes General: appearance normal, both eyes and all related structures Pupils: Equal, round and reactive pupils present EOM: EOMs intact bilaterally Resp Effort & Inspection: normal respiratory effort Auscultation: clear to auscultation bilaterally Cardio Rate: regular rate Rhythm: regular rhythm Heart sounds: S1 normal heart sound present, S2 normal heart sound present, no gallops, no murmurs and no rubs Neuro General: patient oriented x3 and gait normal Cranial nerves: Yes Equal, round and reactive pupils present Psych Affect: normal affect Assessment and Plan Assessment & Plan (1) Hypercholesterolemia: Code(s): E78.00 - Pure hypercholesterolemia, unspecified Plan: LDL?cholesterol?now?in?normal?range?with?atorvastatin?20?mg?daily Continue?current?medication (2) Hypothyroidism: Code(s): E03.9 - Hypothyroidism, unspecified Plan: TSH?and?T4?are?within?normal?limits?no Continue?levothyroxine?50?mcg?daily?as?prescribed (3) Low HDL (under 40): Code(s): E78.6 - Lipoprotein deficiency Plan: Mildly?low?HDL Continue?exercise/increase?exercise?as?tolerated Orders: Orders Thyroid Stimulating Hormone Today E03.9 - Hypothyroidism, unspecified Basic Metabolic Panel Today Z00.00 - Encounter for general adult medical examination without abnormal findings Free T4 (Free Thyroxine) Today E03.9 - Hypothyroidism, unspecified Triiodothyronine T3 Total Today E03.9 - Hypothyroidism, unspecified Coding Level of Care Code Est Pt Level 3 (21759) Diagnoses Hypercholesterolemia E78.00 Hypothyroidism E03.9 Low HDL (under 40) E78.6 Additional Codes HUSSEIN-7 Assessment Billing - HUSSEIN-7 Assessment Tool: HUSSEIN-7 Assessment 83606 ([id number])
== END 2023-09-25 11:36 | disposition home or self-care (01) ==
PROVIDERS: PCP Family Medicine; Visit Provider Family Medicine
DX: E78.00 Pure hypercholesterolemia, unspecified (principal); E03.9 Hypothyroidism, unspecified; E78.6 Lipoprotein deficiency
CPT/HCPCS: 99213

== ENCOUNTER 2023-10-29 09:00 | Outpatient (RCR) | payer MEDICARE, MEDICAID, SELFPAY ==
--- NOTE | 2023-09-30 11:29 | MHC.PT.EP ---
[facility] [place] [facility] [place] Office [place] [facility] [address] Waqar Talbert [address] [phone] F: [phone] F: [phone] F: [phone] F: [phone] Physical Therapy Plan of Care Date of Evaluation: 09/30/23 Date of Surgery: Diagnosis: lower extremity weakness, leg length discrepancy, s/p fall (PMH: CP, lives in [facility]) Assessment: Patient is a 58 y.o. male with PMHx of CP whom lives in a long term and is referred to PT by Dr. Manny Cardona MD, with Dx of lower extremity weakness, leg length discrepancy, s/p fall. Patient impairments include pain, limited ROM, weakness, antalgic gait. Patient current functional limitations are walking any distance, turning, balance, navigating curbs. Patient will benefit from skilled PT to address aforementioned impairments and functional limitations to meet established goals, reduce receurrent falls, and to preserve current capabilities to prevent deterioration of symptoms. Frequency and Duration: The patient will be seen 1x/week for 4 weeks Short Term Goals: 2 weeks Patient demonstrates consistency and independence with HEP with help at [facility] to improve LE strength. 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 Patient presents with increased bilateral knee flexion/extension 4/5 to be able to go up/down curb with SPV and use of rollater with staff. Treatment Plan: Modalities to reduce pain, spasms and effusion. Manual therapy to restore motion and function. Therapeutic exercise to improve strength and flexibility. Neuromuscular re-education for posture and balance. Therapeutic activities to return to functional activities of daily living. Electronically signed by: Sharath Lopez, PT, DPT Please sign and return to therapist. Thank you for your referral.
--- NOTE | 2023-10-09 09:35 | MHC.PT.EP ---
[facility] [place] [facility] [place] Office [place] Office [address] Waqar Talbert [address] [phone] F: [phone] F: [phone] F: [phone] F: [phone] Physical Therapy Plan of Care Date of Evaluation: 09/30/23 Date of Surgery: Diagnosis: lower extremity weakness, leg length discrepancy, s/p fall (PMH: CP, lives in [facility]) Assessment: Patient is a 58 y.o. male with PMHx of CP whom lives in a [facility] and is referred to PT by Dr. Manny Cardona MD, with Dx of lower extremity weakness, leg length discrepancy, s/p fall. Patient impairments include pain, limited ROM, weakness, antalgic gait. Patient current functional limitations are walking any distance, turning, balance, navigating curbs. Patient will benefit from skilled PT to address aforementioned impairments and functional limitations to meet established goals, reduce receurrent falls, and to preserve current capabilities to prevent deterioration of symptoms. Frequency and Duration: The patient will be seen 1x/week for 4 weeks Short Term Goals: 2 weeks Patient demonstrates consistency and independence with HEP with help at [facility] to improve LE strength. 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 Patient presents with increased bilateral knee flexion/extension 4/5 to be able to go up/down curb with SPV and use of rollater with staff. Treatment Plan: Modalities to reduce pain, spasms and effusion. Manual therapy to restore motion and function. Therapeutic exercise to improve strength and flexibility. Neuromuscular re-education for posture and balance. Therapeutic activities to return to functional activities of daily living. Electronically signed by: Sharath Lopez, PT, DPT Please sign and return to therapist. Thank you for your referral.
--- NOTE | 2023-11-28 11:47 | MHC.PT.DC ---
[facility] [place] Office [place] Office [place] Office [address] Waqar Talbert [address] [phone] F: [phone] F: [phone] F: [phone] F: [phone] Physical Therapy Discharge Report Diagnosis: lower extremity weakness, leg length discrepancy, s/p fall (PMH: CP, lives in [facility]) Date of Surgery: Date of Evaluation: 09/30/23 Date of Discharge: 11/28/23 Treatments to Date: 4 Cancellations to Date: 0 No Shows to Date: 1 Discharge Status: Improved Function Independent with HEP Discharge Summary: Erick completed scheduled PT sessions and was given HEP which they have been doing with him at the Assisted he resides in. He ceased attending PT on his own accord and is discharged at this time. Electronically signed by: Sharath Lopez, PT, DPT Please sign and return to therapist. Thank you for your referral.
== END 2023-11-28 11:47 | disposition home or self-care (01) ==
LOC: HO.PT 09:00
PROVIDERS: PCP Family Medicine; Visit Provider Family Medicine
DX: R29.898 Other symptoms and signs involving the musculoskeletal system (principal); M21.70 Unequal limb length (acquired), unspecified site; Z91.81 History of falling
CPT/HCPCS: 97110; 97162; 97530

== ENCOUNTER 2023-12-30 07:49 | Outpatient (REF) | payer MEDICARE, MEDICAID, SELFPAY ==
[2023-12-30 12:40] LABS: Anion Gap 11 (12-20); Blood Urea Nitrogen 12 mg/dL (9-16); Calcium 9.7 mg/dL (8.4-10.2); Carbon Dioxide 30 mmol/L (22-29); Chloride 106 mmol/L (96-108); Estimated Glomerular Filt Rate > 60; Free T4 (Free Thyroxine) 0.91 ng/dL (0.71-1.85); Glucose Random 95 mg/dL (60-115); Potassium 3.7 mmol/L (3.3-5.1); Sodium 143 mmol/L (135-145); Thyroid Stimulating Hormone 2.54 uIU/mL (0.32-4.0)
[2023-12-31 15:32] LABS: Triiodothyronine T3 Total 115 ng/dL (76-181)
== END 2023-12-30 07:50 | disposition home or self-care (01) ==
LOC: HO.WFDLDS 07:49
PROVIDERS: Visit Provider Family Medicine
DX: Z00.00 Encounter for general adult medical examination without abnormal findings (principal); E03.9 Hypothyroidism, unspecified
CPT/HCPCS: 36415; 80048; 84439; 84443; 84480

== ENCOUNTER 2024-01-19 10:27 | Outpatient (AMB) | payer MEDICARE, MEDICAID, SELFPAY ==
[2024-01-19 11:01] VITALS: BP 112/60; PULSE 78; O2SAT 97; BMI 26.6
--- NOTE | 2024-01-19 11:01 | A.OFFPC_ITS ---
Vital Signs 01/19/24 11:01 Height 5 ft Weight 136 lb 4 oz BMI 26.6 BP 112/60 Blood Pressure Location Lt brachial Position Sitting Pulse 78 Pulse Source Pulse Oximeter Pulse Oximetry (%) 97 Oxygen Delivery Method Room Air Intake Visit Reasons: f/u hypothyroidism Intake Note: Patient is here to follow up on hypeothyroidism. Allergies No Known Allergies Allergy (Verified 01/19/24 11:15) Medication List - Last Reconciled 01/19/24 by Manny Cardona MD acetaminophen ER (Tylenol 8 Hour) 650 mg PO Q8H PRN 90 days atorvastatin 20 mg PO BEDTIME 30 days carbamide peroxide 6.5% (Debrox) 5 drps otic (ear) right Q2D PRN 30 days cholecalciferol (vitamin D3) 125 mcg PO QAM docusate sodium 100 mg PO BEDTIME PRN hydrocortisone 1% (Anti-Itch (hydrocortisone)) 1 appl topical DAILY PRN 30 days lanolin-mineral oil 1 appl topical BID PRN levothyroxine 50 mcg PO DAILY 30 days lisinopril 5 mg PO DAILY 30 days miscellaneous medical supply Shower safety stool. As directed, 999 days/life time. polyethylene glycol 3350 17 grams PO DAILY Shower Chair As directed showerchair walker Rollator Walker with Wheels, Brakes and Seat. Daily As directed. 999 days Tobacco use date assessed: 01/19/24 Dental Screening Dental Screen Date: 01/19/24 HPI f/u hypothyroidism HPI Details 58 y/o male presents to f/u [facility]. Labs were drawn 12/30/23. Reviewed labs with pt. TSH 2.54 uIU/mL and is in the normal limits. [facility] Medical History (Updated 09/25/23 @ 11:14 by Angel Jaramillo) Hypothyroidism Diarrhea Blood in stool Anemia Cerebral palsy Surgical History Hx of colonoscopy Social History Housing: Other (Senior Living) Alcohol intake: never Patient Tobacco Use Status: Never used Tobacco e-Cigarette/Vaping Use: Never Used Second Hand Smoke Exposure: No service: No Current occupational status: disabled Current occupational exposures/hazards: No Cognitive needs: Yes Hearing needs: Yes Vision needs: No Questionnaire Thrive Questionnaire Date Thrive assessed: 09/25/23 HUSSEIN-7 AMB Questionnaire HUSSEIN-7 Date HUSSEIN - 7 assessed: 09/25/23 Source: Developed by Drs. Dat Cruz, Geetha Perez, Jean Carlos López and colleagues, with an educational jimmie from [email or web address]. Physical exam (Primary Care) Vital Signs: Last Vital Signs Pulse 78 01/19/24 11:01 BP 112/60 01/19/24 11:01 Pulse Ox 97 01/19/24 11:01 Oxygen Delivery Method Room Air 01/19/24 11:01 BMI result Body Mass Index 26.6 Tobacco/Smoking Status: Tobacco use Status Tobacco use date assessed 01/19/24 01/19/24 11:15 Patient Tobacco Use Status Never used Tobacco 01/19/24 11:02 e-Cigarette/Vaping Use Never Used 01/19/24 11:02 Thrive Assessment: Date of Thrive Assessment Date Thrive assessed 09/25/23 01/19/24 11:02 Assessment and Plan Assessment & Plan (1) Hypothyroidism: Code(s): E03.9 - Hypothyroidism, unspecified Plan: Thyroid?hormone?levels?remain?within?normal?range. Continue?levothyroxine?50?mcg?daily?as?prescribed Orders: Orders Lipid Panel Today Z00.00 - Encounter for general adult medical examination without abnormal findings Free T4 (Free Thyroxine) Today E03.9 - Hypothyroidism, unspecified Triiodothyronine T3 Total Today E03.9 - Hypothyroidism, unspecified Comprehensive [place]. Panel Fast Today Z00.00 - Encounter for general adult medical examination without abnormal findings Complete Blood Count Auto Diff Today Z00.00 - Encounter for general adult medical examination without abnormal findings Prostate Specific Antigen Scr Today Z12.5 - Encounter for screening for malignant neoplasm of prostate Microalbumin, Random (w Creat) Today I10 - Essential (primary) hypertension UA and rflx microscopic Today Z00.00 - Encounter for general adult medical examination without abnormal findings Thyroid Stimulating Hormone Today E03.9 - Hypothyroidism, unspecified Coding Level of Care Code Est Pt Level 3 (08666) Diagnoses Hypothyroidism E03.9
== END 2024-01-19 11:51 | disposition home or self-care (01) ==
PROVIDERS: PCP Family Medicine; Visit Provider Family Medicine
DX: E03.9 Hypothyroidism, unspecified (principal)
CPT/HCPCS: 99213

== ENCOUNTER 2024-07-01 08:08 | Outpatient (AMB) | payer MEDICARE, MEDICAID, SELFPAY ==
--- NOTE | 2024-07-01 08:09 | A.OFFPC_ITS ---
Intake Visit Reasons: annual/referral for hearing exam Allergies No Known Allergies Allergy (Verified 01/19/24 11:15) Tobacco use date assessed: 01/19/24 Dental Screening Dental Screen Date: 01/19/24 HPI HPI Comments History of Present Illness Details 59-year-old, living in nursing with cere bral palsy, vitamin-D deficiency, hypothyroidism, hypertension, hyperlipidemia, obesity, impaired fasting glucose, eczema Health Maintenance: ? Colon 05/09/2022 ? PSA ? Tdap 03/12/2022 Specialists: Gastroenterology Here today for physical exam. Last set of labs done by primary care provider 09/24/2023. He is routinely followed by Dr Cardona for PCP. [facility] Medical History (Updated 07/01/24 @ 07:08 by Genesis Up, [facility]) Hypothyroidism Diarrhea Blood in stool Anemia Cerebral palsy Surgical History Hx of colonoscopy Social History Housing: Other (Residential) Alcohol intake: never Patient Tobacco Use Status: Never used Tobacco e-Cigarette/Vaping Use: Never Used Second Hand Smoke Exposure: No service: No Current occupational status: disabled Current occupational exposures/hazards: No Cognitive needs: Yes Hearing needs: Yes Vision needs: No Questionnaire Thrive Questionnaire Date Thrive assessed: 09/25/23 HUSSEIN-7 AMB Questionnaire HUSSEIN-7 Date HUSSEIN - 7 assessed: 09/25/23 Source: Developed by Drs. Dat Cruz, Geetha Perez, Jean Carlos López and colleagues, with an educational jimmie from [employer]. Physical exam (Primary Care) Tobacco/Smoking Status: Tobacco use Status Tobacco use date assessed 01/19/24 07/01/24 08:11 Patient Tobacco Use Status Never used Tobacco 07/01/24 08:11 e-Cigarette/Vaping Use Never Used 07/01/24 08:11 Thrive Assessment: Date of Thrive Assessment Date Thrive assessed 09/25/23 07/01/24 08:11 Coding
[2024-07-01 08:14] VITALS: BP 108/70; PULSE 73; RESP 14; O2SAT 94; BMI 26.6
--- NOTE | 2024-07-01 08:14 | AM.OFFVISMDC ---
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 Present Accompanied by: Employee Allergies No Known Allergies Allergy (Verified 07/01/24 09:07) Medication List - Last Reconciled 07/01/24 by DELIA Cardoso- acetaminophen ER (Tylenol 8 Hour) 650 mg PO Q8H PRN 90 days atorvastatin 20 mg PO BEDTIME 30 days carbamide peroxide 6.5% (Debrox) 5 drps otic (ear) right Q2D PRN 30 days cholecalciferol (vitamin D3) 125 mcg PO QAM docusate sodium 100 mg PO BEDTIME PRN hydrocortisone 1% (Anti-Itch (hydrocortisone)) 1 appl topical DAILY PRN 30 days lanolin-mineral oil 1 appl topical BID PRN 30 days levothyroxine 50 mcg PO DAILY 30 days lisinopril 5 mg PO DAILY 30 days miscellaneous medical supply Shower safety stool. As directed, 999 days/life time. polyethylene glycol 3350 17 grams PO DAILY Shower Chair As directed showerchair walker Rollator Walker with Wheels, Brakes and Seat. Daily As directed. 999 days Do you need a note to return to daycare/school/sports/work: No HPI HPI Comments History of Present Illness Details 59-year-old, living in nursing with cerebral palsy, vitamin-D deficiency, hypothyroidism, hypertension, hyperlipidemia, obesity, impaired fasting glucose, eczema SurgHx: reviewed as below FHx: reviewed as below SocHx: reviewed as below Health Maintenance: See scanned preventative medicine assessment with personalized health plan and screening schedule. ? Colon 05/09/2022 ? PSA done today WNL ? Tdap 03/12/2022 [place] of Care: As listed in chart Gastroenterology Opth[facility] Here today for AWV & CPE. The Medicare Annual Wellness Visit (AWV) is a yearly appointment with a health professional to identify health risks and help reduce them and to create or update a personalized prevention plan. During a Medicare AWV, health professionals should also review any current opioid prescriptions, detect any cognitive impairment, and establish or update medical and family history. He is routinely followed by Dr Cardona for PCP. No Skin concerns No bowel or bladder concerns Visual Acuity: Vision - denies any problems. Eye exam 2023, wears readers Hearing Screening: [facility] referred for hearing exam today Recommend getting annual Flu shot Recommend getting the PCV 15 vaccine, as no vaccine status is recorded at this time Additional 20 minutes spent reviewing chart, documenting and performing physical examination. During the course of the visit the patient was educated and counseled about appropriate screening and preventative services. Patient instructions were provided to the patient in written or electronic format. I have reviewed and verified the above information. [facility] Medical History (Updated 07/01/24 @ 09:18 by DELIA Cardoso-NIKO) Cerebral palsy Skin breakdown Hypothyroidism Diarrhea Blood in stool Anemia Surgical History Hx of colonoscopy Social History Housing: Other (Senior Living) Alcohol intake: never Patient Tobacco Use Status: Never used Tobacco e-Cigarette/Vaping Use: Never Used Second Hand Smoke Exposure: No service: No Current occupational status: disabled Current occupational exposures/hazards: No Cognitive needs: Yes Hearing needs: Yes Vision needs: No Questionnaire Medicare Wellness Checkup What gender do you identify with?: male During the past 4 weeks, how much have you been bothered by emotional problems such as feeling anxious, depressed, irritable, sad or downhearted, and blue?: not at all During the past 4 weeks, has your physical & emotional health limited your social activities with family, friends, neighbors, or groups?: not at all During the past 4 weeks, how much bodily pain have you generally had?: no pain During the past 4 weeks, was someone available to help you if you needed & wanted help?: yes, as much as I wanted During the past 4 weeks, what was the hardest physical activity you could do for at least 2 minutes?: light Can you get to places out of walking distance without help? (For eg., can you travel alone on buses, taxis or drive your car?): No Can you go shopping for groceries or clothes without someone's help?: No Can you prepare your own meals?: No Can you do your housework without help?: No Because of any health problems, do you need the help of another person with your personal care needs such as eating, bathing, dressing or getting around the house?: Yes Can you handle your own money without help?: No During the past 4 weeks, how would you rate your health in general?: very good During the past 4 weeks how have things been going for you?: pretty well Are you having difficulties driving your car?: not applicable, I don't use a car Do you always fasten your seat belt when you are in a car?: yes, usually During past 4 weeks, have you been bothered by the following: never: Falling or dizzy when standing up, Sexual problems?, Trouble eating well?, Problems using the telephone? and Tiredness or fatigue? and always: Teeth or denture problems? (chronic) Have you fallen 2 or more times in the past year?: No Are you afraid of falling?: No Are you a smoker?: no During the past 4 weeks, how many drinks of wine, beer, or other alcoholic beverages did you have?: no alcohol at all Do you exercise for about 20 minutes 3 or more times a week?: no, I usually do not exercise this much Have you been given information to help with the following?: no: Hazards in your house that might hurt you? and no: Keeping track of your medications? How often do you have trouble taking medicines the way you have been told to take them?: I always take medicine as prescribed How confident are you that you can control & manage most of your health problems?: very confident What is your race?: Other Activity of Daily Living Bathing - sponge bath, tub bath or shower: receives help in bathing more than one body part (or not bathed) Dressing - getting clothes from closets & drawers, including inner/outer garments & fasteners.: receives help getting clothes or getting dressed, or stays undressed Toileting - going to the 'toilet room' for urine/bowel elimination & cleaning self/arranging clothes: receives help going to toilet room, cleaning self or arranging clothes Transfer: moves in & out of bed or chair with help Continence: has occasional 'accidents' Feeding: feeds self except getting help in cutting meat/buttering bread Total Score: 2 Information obtained from: informant Using telephone: needs assistance Traveling: needs assistance Shopping: needs assistance Preparing meals: needs assistance Housework: needs assistance Taking medicine: needs assistance Managing money: needs assistance PHQ-9 Over the last 2 weeks, how often have you been bothered by any of the following problems? 1. Little interest or pleasure in doing things: not at all 2. Feeling down, depressed, or hopeless: not at all 3. Trouble falling or staying asleep, or sleeping too much: not at all 4. Feeling tired or having little energy: not at all 5. Poor appetite or overeating: not at all 6. Feeling bad about yourself - or that you are a failure or have let yourself or your family down: not at all 7. Trouble concentrating on things, such as reading the newspaper or watching television: not at all 8. Moving or speaking so slowly that other people could have noticed. Or the opposite - being so fidgety or restless that you have been moving around a lot more than usual: not at all 9. Thoughts that you would be better off or of hurting yourself in some way: not at all Total score: 0 Depression Screening Interpretation: Negative Depression Screening Done: Yes 72683 - PHQ-9 Billing: Yes Source: Developed by Drs. Dat Cruz, Geetha Perez, Jean Carlos Lóepz and colleagues, with an educational jimmie from [employer]. Physical Exam Vital Signs: Last Vital Signs Pulse 73 07/01/24 08:14 Resp 14 07/01/24 08:14 BP 108/70 07/01/24 08:14 Pulse Ox 94 07/01/24 08:14 Oxygen Delivery Method Room Air 07/01/24 08:14 BMI result Body Mass Index 26.6 Const Other: General: Well developed, well nourished, in no acute distress. Appears stated age. Head: Normocephalic, atraumatic. Eyes: Pupils are equal, round and reactive to light and accommodation. Conjunctivae are clear. Vision grossly normal. Ears: TMs clear AU, EACS WNL Nose: Patent, without discharge. Mouth: There are no ulcers or lesions noted. No inflammation, no post nasal drip, no plaques nor exudates. Neck: Supple, no adenopathy or thyromegaly. Lungs: Clear to auscultation bilaterally. No rales, rhonchi or wheeze noted. Good air flow in all linder. Heart: Regular rate and rhythm. No murmurs, click, rubs or gallops are noted. Abdomen: Bowel sounds present in all quadrants. The abdomen is soft, nontender, with no masses or organomegaly noted. No hernias are noted. Musculoskeletal: chronic changes r/t cerebral palsy, walks w/walker Pulses: Peripheral pulses are equal and palpable bilaterally. Extremities: No clubbing, cyanosis, trace nonpitting edema BLE. Declined to remove shoes for the exam. Neurologic: Gait abnormal - baseline. Skin: No rashes, ulcers, or lesions noted. Turgor is good. Skin color is good. Psych: Normal eye contact, affect and mood appropriate, and normal interactions. Patient is alert and appropriate to context. Results Reviewed Results Reviewed: CBC, CMP, TSH, PSA, LIPID PROFILE, UA AND URINE MICRO/ALB DONE TODAY AND WNL Assessment & Plan Assessment & Plan (1) Encounter for annual wellness visit (AWV) in Medicare patient: Code(s): Z00.00 - Encounter for general adult medical examination without abnormal findings (2) Laboratory examination ordered as part of a routine general medical examination: Code(s): Z00.00 - Encounter for general adult medical examination without abnormal findings Plan: . (3) Cerebral palsy: Code(s): G80.9 - Cerebral palsy, unspecified Qualifiers: Cerebral palsy type: spastic diplegic Qualified Code(s): G80.1 - Spastic diplegic cerebral palsy Plan: . (4) Decreased hearing: Code(s): H91.90 - Unspecified hearing loss, unspecified ear Qualifiers: Laterality: bilateral Qualified Code(s): H91.93 - Unspecified hearing loss, bilateral Plan: . (5) Hypothyroidism: Code(s): E03.9 - Hypothyroidism, unspecified Qualifiers: Hypothyroidism type: acquired Qualified Code(s): E03.9 - Hypothyroidism, unspecified Plan: . (6) Low vitamin D level: Code(s): R79.89 - Other specified abnormal findings of blood chemistry Plan: . (7) Hypercholesterolemia: Code(s): E78.00 - Pure hypercholesterolemia, unspecified Plan: . (8) Hypertension: Code(s): I10 - Essential (primary) hypertension Qualifiers: Hypertension type: primary hypertension Qualified Code(s): I10 - Essential (primary) hypertension Plan: . (9) Screening for prostate cancer: Code(s): Z12.5 - Encounter for screening for malignant neoplasm of prostate Plan: . (10) Unsteady gait: Code(s): R26.81 - Unsteadiness on feet Plan: . (11) Lower extremity weakness: Code(s): R29.898 - Other symptoms and signs involving the musculoskeletal system Qualifiers: Laterality: bilateral Qualified Code(s): R29.898 - Other symptoms and signs involving the musculoskeletal system Plan: . (12) Chronic eczema of foot: Code(s): L30.9 - Dermatitis, unspecified Plan: . (13) Intellectual disability: Code(s): F79 - Unspecified intellectual disabilities Plan: . (14) Overweight (BMI 25.0-29.9): Code(s): E66.3 - Overweight Plan: . (15) ACP (advance care planning): Code(s): Z71.89 - Other specified counseling Plan: . Plan . Orders: Orders Lipid Panel 10/13/24 E03.9 - Hypothyroidism, unspecified, E78.00 - Pure hypercholesterolemia, unspecified, I10 - Essential (primary) hypertension, R79.89 - Other specified abnormal findings of blood chemistry Comprehensive [place]. Panel Fast 10/13/24 E03.9 - Hypothyroidism, unspecified, E78.00 - Pure hypercholesterolemia, unspecified, I10 - Essential (primary) hypertension, R79.89 - Other specified abnormal findings of blood chemistry Hemoglobin A1c 10/13/24 E03.9 - Hypothyroidism, unspecified, E78.00 - Pure hypercholesterolemia, unspecified, I10 - Essential (primary) hypertension, R79.89 - Other specified abnormal findings of blood chemistry Vitamin D 25-OH Total 10/13/24 R79.89 - Other specified abnormal findings of blood chemistry TSH reflex Free T4 10/13/24 E03.9 - Hypothyroidism, unspecified, E78.00 - Pure hypercholesterolemia, unspecified, I10 - Essential (primary) hypertension, R79.89 - Other specified abnormal findings of blood chemistry PSA, Ultra Sensitive 10/13/24 Z12.5 - Encounter for screening for malignant neoplasm of prostate Referrals Audiology Referral H91.90 - Unspecified hearing loss, unspecified ear Patient Instructions: Dear Patient, We want you to receive wellness care ? health care that may lower your risk of illness or injury. Medicare pays for some wellness care, but it does not pay for all the wellness care you might need. We want you to know about your Medicare benefits and how we can help you get the most from them. The term ?physical? is often used to describe wellness care. But Medicare does not pay for a traditional, head-to-toe physical. Medicare does pay for a wellness visit once a year to identify health risks and help you to reduce them. At your wellness visit, our health care team will take a complete health history and provide several other services: Screenings to detect depression, risk for falling and other problems, A limited physical exam to check your blood pressure, weight, vision and other things depending on your age, gender and level of activity, Recommendations for other wellness services and healthy lifestyle changes. Before your appointment, our staff will ask you some questions about your health and may ask you to fill out a form. A wellness visit does not deal with new or existing health problems. That would be a separate service and requires a longer appointment. Please let our scheduling staff know if you need the doctor's help with a health problem, a medication refill or something else. We may need to schedule a separate appointment. A separate charge applies to these services, whether provided on the same date or a different date than the wellness visit. We hope to help you get the most from your Medicare wellness benefits. Please contact us with any questions. Health screenings for men ages 40 to 64 You should visit your health care provider regularly, even if you feel healthy. The purpose of these visits is to: Screen for medical issues Assess your risk for future medical problems Encourage a healthy lifestyle Update vaccinations and other preventive care services Help you get to know your provider in case of an illness Information Even if you feel fine, you should still see your provider for regular checkups. These visits can help you avoid problems in the future. For example, the only way to find out if you have high blood pressure is to have it checked regularly. High blood sugar and high cholesterol level also may not have any symptoms in the early stages. Simple blood tests can check for these conditions. There are specific times when you should see your provider or receive specific health screenings. The [place] Preventive Services Task Force publishes a list of recommended screenings. Below are screening guidelines for men ages 40 to 64. BLOOD PRESSURE SCREENING Have your blood pressure checked at least once every year. Watch for blood pressure screenings in your area. Ask your provider if you can stop in to have your blood pressure checked. Ask your provider if you need your blood pressure checked more often if: You have diabetes, heart disease, kidney problems, or are overweight or have certain other health conditions You have a first-degree relative with high blood pressure You are Black Your blood pressure top number is from 120 to 129 mm Hg, or the bottom number is from 70 to 79 mm Hg If the top number is 130 mm Hg or greater or the bottom number is 80 mm Hg or greater, this is considered stage 1 hypertension. Schedule an appointment with your provider to learn how you can lower your blood pressure. Effects of age on blood pressure CHOLESTEROL SCREENING Cholesterol screening should begin at age 35 for men with no known risk factors for coronary heart disease. Repeat cholesterol screening should take place: Every 5 years for men with normal cholesterol levels More often if changes occur in lifestyle (including weight gain and diet) More often if you have diabetes, heart disease, kidney problems, or certain other conditions COLORECTAL CANCER SCREENING If you are under age 45, talk to your provider about getting screened. You may need to be screened if you have a strong family history of colon cancer or polyps. Screening may also be considered if you have risk factors such as a history of inflammatory bowel disease or polyps. If you are age 45 to 75, you should be screened for colorectal cancer. There are several screening tests available: A stool-based fecal occult blood (gFOBT) or fecal immunochemical test (FIT) every year A stool sDNA test every 1 to 3 years Flexible sigmoidoscopy every 5 years or every 10 years with stool testing FIT done every year CT colonography (virtual colonoscopy) every 5 years Colonoscopy every 10 years You may need a colonoscopy more often if you have risk factors for colorectal cancer, such as: Ulcerative colitis A personal or family history of colorectal cancer A history of growths in your colon called adenomatous polyps DENTAL EXAM Go to the dentist once or twice every year for an exam and cleaning. Your dentist will evaluate if you have a need for more frequent visits. DIABETES SCREENING All adults who do not have risk factors for diabetes should be screened starting at age 35 and repeated every 3 years. If you have other risk factors for diabetes, such as a first degree relative with diabetes, overweight or obesity, high blood pressure, prediabetes, or a history of heart disease, you may be tested more often. If you are overweight and have other risk factors, such as high blood pressure and are planning to become , screening is recommended. EYE EXAM Have an eye exam every 2 to 4 years ages 40 to 54 and every 1 to 3 years ages 55 to 64. Your provider may recommend more frequent eye exams if you have vision problems or glaucoma risk. Have an eye exam that includes an examination of your retina (back of your eye) at least every year if you have diabetes. IMMUNIZATIONS Commonly needed vaccines include: Flu shot: get one every year COVID-19 vaccine: ask your provider what is best for you Tetanus-diphtheria and acellular pertussis (Tdap) vaccine: have as one of your tetanus-diphtheria vaccines if you did not receive it as an adolescent Tetanus-diphtheria: have a booster (or Tdap) every 10 years Varicella vaccine: receive 2 doses if you never had chickenpox or the varicella vaccine and were born in 1979 or after Hepatitis B vaccine: receive 2, 3, or 4 doses, depending on your exact circumstances, if you did not receive these as a child or adolescent, until age 59 Shingles (herpes zoster) vaccine: at or after age 50 Ask your provider if you should receive other immunizations, especially if you have certain medical conditions, such as diabetes or are at increased risk for some diseases such as pneumonia. INFECTIOUS DISEASE SCREENING Screening for hepatitis C: all adults ages 18 to 79 should get a one-time test for hepatitis C. Screening for human immunodeficiency virus (HIV): all people ages 15 to 65 should get a one-time test for HIV. Depending on your lifestyle and medical history, you may need to be screened for infections such as syphilis, chlamydia, and other infections. LUNG CANCER SCREENING You should have an annual screening for lung cancer with low-dose computed tomography (LDCT) if: You are age 50 to 80 years AND You have a 20 pack-year smoking history AND You currently smoke or have quit within the past 15 years OSTEOPOROSIS SCREENING If you are age 50 to 64 and have risk factors for osteoporosis, you should discuss screening with your provider. Risk factors can include long-term steroid use, low body weight, smoking, heavy alcohol use, having a fracture after age 50, or a family history of hip fracture or osteoporosis. Osteoporosis PHYSICAL EXAM All adults should visit their provider from time to time, even if they are healthy. The purpose of these visits is to: Screen for diseases Assess risk of future medical problems Encourage a healthy lifestyle Update vaccinations and other preventive care services Maintain a relationship with a provider in case of an illness Your height, weight, and body mass index (BMI) should be checked at every exam. During your exam, your provider may ask you about: Depression and anxiety Diet and exercise Alcohol and tobacco use Safety, such as use of seat belts and smoke detectors Your medicines and risk for interactions PROSTATE CANCER SCREENING If you're 55 through 69 years old, before having the test, talk to your provider about the pros and cons of having a PSA test. Ask about: Whether screening decreases your chance of dying from prostate cancer. Whether there is any harm from prostate cancer screening, such as side effects from testing or overtreatment of cancer when discovered. Whether you have a higher risk of prostate cancer than others. If you are age 55 or younger, screening is not generally recommended. You should talk with your provider about if you have a higher risk for prostate cancer. Risk factors include: Having a family history of prostate cancer (especially a brother or father) Being If you choose to be tested, the PSA blood test is repeated over time (yearly or less often), though the best frequency is not known. Prostate examinations are no longer routinely done on men with no symptoms. Prostate cancer SKIN EXAM Your provider may check your skin for signs of skin cancer, especially if you're at high risk. People at high risk include those who have had skin cancer before, have close relatives with skin cancer, or have a weakened immune system. TESTICULAR EXAM The [place] Preventive Services Task Force (USPSTF) now recommends against performing testicular self-exams. Doing testicular self-exams has been shown to have little to no benefit. Quality Reporting (2020) Adult ([facility] 138//) Smoking risk assessment performed?: Yes Patient Tobacco Use Status: Never used Tobacco Tobacco cessation counseling provided: No Pharmacotherapy not ordered: No Depression screening performed: Yes Screen Results: Yes Negative screen Recommended changes not done: lifestyle, weight reduction, dietary, physical activity, alcohol moderation, anti-HTN medication and lab test for HTN Systolic BP not done?: Yes Diastolic BP not done?: Yes BMI screening not done: Yes BMI High - Follow Up: Yes High-plan Sexual Activity Screening ([facility] 153) Sexually active?: No Immunizations (CMS 147, 117) Annual Influenza Vaccine: Yes Measles Antibody Test: No Mumps Antibody Test: No Rubella Antibody Test: No Varicella Antibody Test: No Anti Hepatitis A IgG Antigen test: No Anti Hepatitis B Virus Surface Ab test: No Fall Risk Screening ([facility] 139) Last assessed Fall Risk: 07/01/24 Fall risk assessment: No Falls in past year Dementia Assessment ([facility] 149) Cognitive assessment recorded: Yes Assessment of cognition with standardized tool: Yes Depression/Bipolar (159/160/161/177) PHQ-9: Total score: 0 Suicide risk assessment performed: Yes Psychotherapy: No Coding Level of Care Code Medicare First (G0438) Est Pt Level 3 (18614) Diagnoses Encounter for annual wellness visit (AWV) in Medicare patient Z00.00 Laboratory examination ordered as part of a routine general medical examination Z00.00 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 Decreased hearing of both ears H91.93 Laterality: bilateral Acquired hypothyroidism E03.9 Hypothyroidism type: acquired Low vitamin D level R79.89 Hypercholesterolemia E78.00 Primary hypertension I10 Hypertension type: primary hypertension Screening for prostate cancer Z12.5 Unsteady gait R26.81 Weakness of both lower extremities R29.898 Laterality: bilateral Chronic eczema of foot L30.9 Intellectual disability F79 Overweight (BMI 25.0-29.9) E66.3 ACP (advance care planning) Z71.89 CPT Codes Advance Care Planning - Time spent: 1-15 minutes, not on file ([id number]) Advance Care Planning Advance Care Planning discussion: Exists, not on file Date of discussion: 07/01/24 Forms completed: Health Care Proxy and MOLST Time spent: 1-15 minutes, not on file Actual minutes spent: 5 Did not discuss due to Cultural/Spiritual beliefs: Yes
== END 2024-07-01 08:53 | disposition home or self-care (01) ==
PROVIDERS: PCP Family Medicine; Visit Provider Nurse Practitioner Family
DX: Z00.00 Encounter for general adult medical examination without abnormal findings (principal); G80.1 Spastic diplegic cerebral palsy; I10 Essential (primary) hypertension; H91.93 Unspecified hearing loss, bilateral; E03.9 Hypothyroidism, unspecified; E78.00 Pure hypercholesterolemia, unspecified; Z12.5 Encounter for screening for malignant neoplasm of prostate; R26.81 Unsteadiness on feet; R29.898 Other symptoms and signs involving the musculoskeletal system; L30.9 Dermatitis, unspecified; F79 Unspecified intellectual disabilities; E66.3 Overweight

== ENCOUNTER → 2024-07-01 08:08 | Outpatient (BNVA) | payer MEDICARE, MEDICAID, SELFPAY | PROVIDERS: PCP Family Medicine; Visit Provider Nurse Practitioner Family | DX: Z00.01 Encounter for general adult medical examination with abnormal findings (principal); G80.1 Spastic diplegic cerebral palsy; H91.93 Unspecified hearing loss, bilateral; E03.9 Hypothyroidism, unspecified; R79.89 Other specified abnormal findings of blood chemistry; E78.00 Pure hypercholesterolemia, unspecified; I10 Essential (primary) hypertension; R26.81 Unsteadiness on feet; R29.898 Other symptoms and signs involving the musculoskeletal system; L30.9 Dermatitis, unspecified; F79 Unspecified intellectual disabilities; E66.3 Overweight; Z71.89 Other specified counseling | CPT/HCPCS: 99212 ==

== ENCOUNTER 2024-07-01 08:57 | Outpatient (REF) | payer MEDICARE, MEDICAID, SELFPAY ==
[2024-07-01 11:16] LABS: MANUAL DIFF FLAG NO
[2024-07-01 11:25] LABS: Appearance Urine Clear; Color Urine Yellow; Glucose Urine UA Negative (Negative); Leukocyte Esterase Urine Negative (Negative); Nitrite Urine Negative (Negative); Specific Gravity - Urine 1.025 (1.005-1.025); Urine Blood Negative (Negative); Urine Ketones Negative (Negative); Urine Protein Negative (Neg-Trace)
[2024-07-01 11:45] LABS: Basophils Percent Auto 0.5 % (0-2); Eosinophils Absolute Auto 0.3 X10*3/uL (0.0-0.4); Eosinophils Percent Auto 3.6 % (0-4); Hematocrit 42.8 % (42.0-52.0); Hemoglobin 14.1 g/dl (14.0-18.0); Imm Gran Abs Auto 0.02 X10*3/uL (0.00-0.03); Imm Gran Pct Auto 0.3 % (0.0-0.4); Lymphocytes Absolute Auto 1.5 X10*3/uL (1.2-4.9); Lymphocytes Percent Auto 19.5 % (20-40); Mean Corpuscular HGB Conc 32.9 g/dl (31.0-36.0); Mean Corpuscular Volume 91.1 fL (80.0-98.0); Mean Platelet Volume 11.4 fL (9.4-12.4); Monocytes Absolute Auto 0.6 X10*3/uL (0.1-1.2); Monocytes Percent Auto 7.8 % (2-11); Neutrophils Absolute Auto 5.2 x10*3/uL (2.0-8.3); Neutrophils Percent Auto 68.3 % (45-73); Platelet Count 268 X10*3/uL (160-400); Red Cell Distribution Width 13.1 % (11.0-16.0); White Blood Count 7.6 X10*3/uL (4.8-10.8)
[2024-07-01 12:27] LABS: Creatinine Urine 120.98 mg/dL; Microalbum/Creatinine Ratio Ur 4.9 ug/mg cr (<30)
[2024-07-01 12:29] LABS: Alanine Aminotransferase 27 U/L (0-40); Albumin Level 4.2 g/dL (3.5-5.0); Alkaline Phosphatase 67 U/L (39-117); Anion Gap 11 (12-20); Aspartate Amino Transferase 27 U/L (5-37); Bilirubin Total 0.5 mg/dL (0.0-1.0); Blood Urea Nitrogen 21 mg/dL (9-16); Calcium 9.8 mg/dL (8.4-10.2); Carbon Dioxide 27 mmol/L (22-29); Chloride 111 mmol/L (96-108); Cholesterol 124 mg/dL (<200); Estimated Glomerular Filt Rate > 60; Glucose Fasting 98 mg/dL (60-99); HDL Cholesterol 39 mg/dL (>40); LDL Cholesterol Calculated 73 mg/dL (<100); Potassium 3.6 mmol/L (3.3-5.1); Sodium 145 mmol/L (135-145); Total Protein 7.3 g/dL (6.5-8.0); Triglycerides 64 mg/dL (<150)
[2024-07-01 12:36] LABS: Free T4 (Free Thyroxine) 0.99 ng/dL (0.71-1.85); Thyroid Stimulating Hormone 2.32 uIU/mL (0.32-4.0)
[2024-07-01 12:41] LABS: Prostate Specific Antigen Scr 0.71 ng/mL (<0.05-4.0)
[2024-07-02 17:18] LABS: Triiodothyronine T3 Total 94 ng/dL (76-181)
== END 2024-07-01 08:58 | disposition home or self-care (01) ==
LOC: HO.WFDLDS 08:57
PROVIDERS: Visit Provider Family Medicine
DX: Z00.00 Encounter for general adult medical examination without abnormal findings (principal); E03.9 Hypothyroidism, unspecified; I10 Essential (primary) hypertension; Z12.5 Encounter for screening for malignant neoplasm of prostate
CPT/HCPCS: 36415; 80053; 80061; 81003; 82043; 82570; 84153; 84439; 84443; 84480; 85025

== ENCOUNTER 2024-07-21 07:56 | Outpatient (REF) | payer MEDICARE, MEDICAID, SELFPAY | END 2024-07-21 07:57 | disposition home or self-care (01) | LOC: HO.SH 07:56 | PROVIDERS: Visit Provider Nurse Practitioner Family | DX: Z01.118 Encounter for examination of ears and hearing with other abnormal findings (principal); H90.3 Sensorineural hearing loss, bilateral | CPT/HCPCS: 92552; 92556 ==

== ENCOUNTER 2025-03-21 14:03 | Outpatient (AMB) | payer MEDICARE, MEDICAID, SELFPAY ==
--- NOTE | 2025-03-21 14:13 | A.OFFPC_ITS ---
Vital Signs 03/21/25 14:20 Height 5 ft Weight 128 lb 4 oz BMI 25.0 BP 110/70 Blood Pressure Location Rt brachial Position Sitting Respiration 20 Pulse 51 Pulse Source Pulse Oximeter Temp 97.7 F Temp Source Oral Pulse Oximetry (%) 100 Oxygen Delivery Method Room Air Intake Visit Reasons: low BP, med review Intake Note: paqtient is scheduled for low b/p follow up and med review for lisinopril due to low readings. Precision Lens Polisher Required: No Allergies No Known Allergies Allergy (Verified 03/21/25 14:18) Medication List - Last Reconciled 03/21/25 by Manny Cardona MD acetaminophen ER (Tylenol 8 Hour) 650 mg PO Q8H PRN 90 days atorvastatin 20 mg PO BEDTIME 30 days carbamide peroxide 6.5% (Debrox) 5 drps otic (ear) right Q2D PRN 30 days cholecalciferol (vitamin D3) 125 mcg PO QAM docusate sodium 100 mg PO BEDTIME PRN hydrocortisone 1% (Anti-Itch (hydrocortisone)) 1 appl topical DAILY PRN 30 days lanolin-mineral oil 1 appl topical BID PRN 30 days levothyroxine 50 mcg PO DAILY 90 days lisinopril 5 mg PO DAILY 30 days miscellaneous medical supply Shower safety stool. As directed, 999 days/life time. polyethylene glycol 3350 17 grams PO DAILY Shower Chair As directed showerchair walker Rollator Walker with Wheels, Brakes and Seat. Daily As directed. 999 days Tobacco use date assessed: 01/19/24 Dental Screening Dental Screen Date: 01/19/24 HPI low BP, med review HPI Details 59 y/o male presents to f/u chronic cond itions. Pt had been concerned about some low blood pressures. He was on lisinopril 5mg daily. He?has?been?off?his?blood?pressure?medications?since?03/04/2025, due?to?concerns?of?low?blood?pressure. Blood pressure logs at home have been fine, as follows: 03/04/25 ----116/69 03/05/25-----130/84----105/74 03/06/25-----110/73 03/07/25------120/72 03/08/25------121/74 03/09/25------113/80 03/10/25------106/68 03/11/25------106 He had been off his lisinopril. [facility] Medical History (Updated 07/01/24 @ 09:18 by DELIA Cardoso-NIKO) Cerebral palsy Skin breakdown Hypothyroidism Diarrhea Blood in stool Anemia Surgical History Hx of colonoscopy Social History Housing: Other (Senior Care) Alcohol intake: never Patient Tobacco Use Status: Never used Tobacco e-Cigarette/Vaping Use: Never Used Second Hand Smoke Exposure: No service: No Current occupational status: disabled Current occupational exposures/hazards: No Cognitive needs: Yes Hearing needs: Yes Vision needs: No Questionnaire PHQ-9 Over the last 2 weeks, how often have you been bothered by any of the following problems? 1. Little interest or pleasure in doing things: nearly every day 2. Feeling down, depressed, or hopeless: not at all 3. Trouble falling or staying asleep, or sleeping too much: not at all 4. Feeling tired or having little energy: not at all 5. Poor appetite or overeating: several days 6. Feeling bad about yourself - or that you are a failure or have let yourself or your family down: not at all 7. Trouble concentrating on things, such as reading the newspaper or watching television: not at all 8. Moving or speaking so slowly that other people could have noticed. Or the opposite - being so fidgety or restless that you have been moving around a lot more than usual: not at all 9. Thoughts that you would be better off or of hurting yourself in some way: not at all Total score: 4 Source: Developed by Drs. Dat Cruz, Geetha Perez, Jean Carlos López and colleagues, with an educational jimmie from [employer]. Thrive Questionnaire Date Thrive assessed: 09/25/23 I am a: Parent/Caregiver What is your living situation today?: I have a steady place to live Within the past 12 months, did the food you bought not last and you didn't have the money to get more?: Never true Within the past 12 months, did you worry whether your food would run out before you got money to buy more?: Never true Do you have trouble paying for medicines?: No Do you have trouble getting transportation to medical appointments?: No Do you have trouble paying your heating and electricity bill?: No Do you have trouble taking care of your child, family member or friend?: No Do you have trouble with day-to-day activities such as bathing, preparing meals, shopping, managing finances, etc.?: No Are you currently unemployed and looking for a job?: No Are you interested in more education?: No Please select the resources that you would like help with: None Currently or been in a relationship where the following occur: No concerns reported THRIVE Score: 0 AUDIT C Alcohol Use Questionnaire (AUDIT-C) 1. How often do you have a drink containing alcohol?: Never Total Score: 0 HUSSEIN-7 AMB Questionnaire HUSSEIN-7 Date HUSSEIN - 7 assessed: 09/25/23 Feeling nervous, anxious, or on edge: 0 = Not at all Not being able to stop or control worryin = Not at all Worrying too much about different things: 0 = Not at all Trouble relaxin = Not at all Being so restless that it is hard to sit still: 0 = Not at all Becoming easily annoyed or irritable: 0 = Not at all Feeling afraid as if something awful might happen: 0 = Not at all Total HUSSEIN-7 score (0-4 normal; 5-9 mild; 10-14 moderate; 15-21 severe): 0 Source: Developed by Drs. Dat Cruz, Geetha Perez, Jean Carlos López and colleagues, with an educational jimmie from [employer]. Review of Systems Const Denies chills, Denies fatigue, Denies fever(s), Denies headache(s) and Denies weakness ENT Denies dizziness and Denies headache(s) Card Denies dyspnea Resp Denies cough, Denies dyspnea, Denies wheezing and Denies other (shortness of breath) Musc Denies numbness and Denies tingling Neuro Denies dizziness, Denies headache(s), Denies numbness, Denies tingling and Denies weakness Psych Denies anxiety and Denies depression Endo Denies fatigue Aller/Immun Denies wheezing Physical exam (Primary Care) Vital Signs: Last Vital Signs Temp 97.7 F 03/21/25 14:20 Pulse 51 03/21/25 14:20 Resp 20 03/21/25 14:20 BP 110/70 03/21/25 14:20 Pulse Ox 100 03/21/25 14:20 Oxygen Delivery Method Room Air 03/21/25 14:20 BMI result Body Mass Index 25.0 Tobacco/Smoking Status: Tobacco use Status Tobacco use date assessed 01/19/24 03/21/25 14:14 Patient Tobacco Use Status Never used Tobacco 03/21/25 14:14 e-Cigarette/Vaping Use Never Used 03/21/25 14:14 PHQ-9: PHQ-9 Score PHQ-9: Total score 4 03/21/25 14:14 Thrive Assessment: Date of Thrive Assessment Date Thrive assessed 09/25/23 03/21/25 14:14 Currently or been in a relationship where the following occur: No concerns reported Const General: well developed; No acute distress Nutritional Appearance: well nourished Orientation/consciousness: patient oriented x3 HENMT Head: Yes normocephalic and Yes atraumatic Eyes General: appearance normal, both eyes and all related structures Pupils: Equal, round and reactive pupils present EOM: EOMs intact bilaterally Resp Effort & Inspection: normal respiratory effort Auscultation: clear to auscultation bilaterally Cardio Rate: regular rate Rhythm: regular rhythm Heart sounds: S1 normal heart sound present, S2 normal heart sound present, no gallops, no murmurs and no rubs Neuro General: patient oriented x3 and gait normal Cranial nerves: Yes Equal, round and reactive pupils present Psych Affect: normal affect Coding Level of Care Code Est Pt Level 3 (25659) Diagnoses Primary hypertension I10 Hypertension type: primary hypertension 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 He?has?been?off?this?medication?and?blood?pressures?appear?well?controlled. Blood?pressure?today?is?good?at?110/70. No?need?for?antihypertensive?medication?at?this?time. Call?if?blood?pressures?are?low?and?patient?is?symptomatic. If?blood?pressure?less?than?105/60 and?patient?is?asymptomatic,?he?should?increase?hydration but no other intervention?required?unless?he?is?symptomatic. Call?if?blood?pressure?greater?than?140/90?for?more?than?3?days. Call?if?blood?systolic pressure?greater?than?160 for?more?than?2?readings?in?day (2) Cerebral palsy: Code(s): G80.9 - Cerebral palsy, unspecified Category: Medical Qualifiers: Cerebral palsy type: spastic diplegic Qualified Code(s): G80.1 - Spastic diplegic cerebral palsy Plan: Stable
[2025-03-21 14:20] VITALS: BP 110/70; PULSE 51; RESP 20; TEMP 36.5; O2SAT 100; BMI 25.0
--- OUTSIDE RECORDS SUMMARY | 2025-03-21 16:00 | XMS_ITS | Continuity of Care Document ---
Author Organization Robin Rendon [facility] Address [address] [place] [address] Phone Care Team Providers Care Automatic Tire Tester Name Role Phone Unavailable Unavailable Unavailable Advance Directives Directive Yes / No Effective Date File Name No Information Encounters Encounter Description Practice Location Reason(s) For Visit Diagnoses Date Provider Providers Copied on Encounter Robin Sims [facility], [address] [place] [address],[address], [place], [place], [id number], [place] tel:[phone] 22 [facility] No Information Jun- 5 No Information Family History Family Member Type Diagnosis Age At Onset No Information Payers Payer name Insurance type Covered republican ID Authoriza tion(s) No Information Social History [...]
== END 2025-03-21 16:17 | disposition home or self-care (01) ==
LOC: HO.HMCFM 14:03
PROVIDERS: PCP Family Medicine; Visit Provider Family Medicine
DX: I10 Essential (primary) hypertension (principal); G80.1 Spastic diplegic cerebral palsy

== ENCOUNTER → 2025-03-21 14:03 | Outpatient (BNVA) | payer MEDICARE, MEDICAID, SELFPAY | PROVIDERS: PCP Family Medicine; Visit Provider Family Medicine | DX: I10 Essential (primary) hypertension (principal); G80.1 Spastic diplegic cerebral palsy | CPT/HCPCS: 99212 ==

== ENCOUNTER 2025-03-27 17:31 | Emergency (ER) | payer MEDICARE, MEDICAID, SELFPAY ==
[2025-03-27 17:48] VITALS: BP 135/86; PULSE 85; RESP 18; TEMP 37; O2SAT 100; BMI 28.3
--- NOTE | 2025-03-27 17:49 | ED_ITS ---
HPI - General Adult General Chief complaint: General Medical Stated complaint: beef stew stuck in his throat/breathing but labore Time Seen by Provider: 03/27/25 17:49 Source: patient Mode of arrival: ambulatory Limitations: no limitations History of Present Illness ED Provider: Dorene Callejas APRN HPI narrative: 59to male from a [facility] with a history of intellectual disability, hyper tension, hyperlipidemia, hypothyroidism, unsteady gait here with complaints of choking episode while eating beef stew. Resolved with heimlich at [facility] per staff. However, had sensation of FB that remained. While in [place] felt sensation pass and now drinking water with no difficultly. No pain, shortness of breath, cough, chest pain. Related Data Previous Rx's ?Medication ?Instructions ?Recorded miscellaneous medical supply #1 ea 01/09/21 Shower Chair #1 ea 01/10/21 walker #1 ea 02/07/22 hydrocortisone 1 % topical cream 1 appl topical DAILY PRN skin 02/18/22 (Anti-Itch (hydrocortisone)) irritation 30 days #28.4 grams docusate sodium 100 mg capsule 100 mg PO BEDTIME PRN constipation 06/25/22 #90 caps lanolin-mineral oil lotion 1 appl topical BID PRN dry skin 30 02/18/24 days #250 mL carbamide peroxide 6.5 % ear drops 5 drp otic (ear) right Q2D PRN 09/03/24 (Debrox) Cerumen 30 days #15 mL acetaminophen 650 mg 650 mg PO Q8H PRN fever or pain 90 11/01/24 tablet,extended release (Tylenol 8 days #270 tabs Hour) cholecalciferol (vitamin D3) 125 125 mcg PO QAM #30 caps 12/05/24 mcg (5,000 unit) capsule lisinopril 5 mg tablet 5 mg PO DAILY 30 days #30 tabs 01/12/25 atorvastatin 20 mg tablet 20 mg PO BEDTIME 30 days #30 tabs 03/13/25 levothyroxine 50 mcg tablet 50 mcg PO DAILY 90 days #90 tabs 03/21/25 polyethylene glycol 3350 17 17 g PO DAILY #510 grams 03/25/25 gram/dose oral powder Allergies Allergy/AdvReac Type Severity Reaction Status Date / Time No Known Allergies Allergy Verified 03/27/25 17:51 Review of Systems Review of Systems: Yes all other systems are reviewed and are negative Constitutional: Constitutional: Reports no additional constitutional complaints, Denies body ache(s), Denies chills, Denies fever(s), Denies headache(s) and Denies weakness Eyes: Eyes: Reports no additional eye complaints and Denies change in vision ENT: Reports system reviewed and no additional complaints, except as documented, Denies dizziness, Denies headache(s), Denies nasal congestion, Denies nasal discharge and Denies neck pain Cardiovascular: Cardiovascular: Reports no additional cardiovascular complaints, Denies chest pain, Denies leg edema and Denies dyspnea Respiratory: Respiratory: Reports no additional respiratory complaints, Denies cough and Denies dyspnea Gastrointestinal: Gastrointestinal: Reports no additional gastrointestinal complaints, Denies abdominal pain, Denies diarrhea, Denies nausea and Denies vomiting Genitourinary: Genitourinary: Denies urinary incontinence Musculoskeletal: Musculoskeletal: Reports no additional musculoskeletal complaints, Denies back pain, Denies arthralgias, Denies joint swelling, Denies neck pain, Denies numbness and Denies tingling Integumentary/Breasts: Skin/Breast: Reports system reviewed and no additional complaints, except as docu and Denies rash Neurologic: Reports system reviewed and no additional complaints, except as documented, Denies Abnormal speech present, Denies dizziness, Denies headache(s), Denies numbness, Denies tingling and Denies weakness PMFSH Past Medical History Attestation statement: The following information was validated with the patient. Source: nursing notes reviewed Medical History Cerebral palsy Skin breakdown Hypothyroidism Diarrhea Blood in stool Anemia Surgical History Hx of colonoscopy Social History Social History Housing: Other (Alf) Alcohol intake: never Patient Tobacco Use Status: Never used Tobacco e-Cigarette/Vaping Use: Never Used Second Hand Smoke Exposure: No Advance Directives: No Advance Directives Information Provided: Yes service: No Current occupational status: disabled Current occupational exposures/hazards: No Cognitive needs: Yes Hearing needs: Yes Vision needs: No Physical Exam ED Vital Signs: Vital Signs - 24 hr 03/27/25 17:48 03/27/25 17:58 Temperature 98.6 F 98.6 F Pulse Rate 85 85 Respiratory Rate 18 18 Blood Pressure 135/86 135/86 Pulse Oximetry 100 100 Oxygen Delivery Method Room Air Room Air BMI result Body Mass Index 28.3 Const General: cooperative, healthy appearing, comfortable and no acute distress Orientation/consciousness: patient oriented x3 Limitations: no limitations HENMT Head: Yes normal to inspection Ears: hearing grossly normal bilaterally General nose exam: Normal external nose present Face and sinus: Yes normal facial exam Mouth: Normal oral and palatal mucosa present Throat: Yes posterior oropharynx normal Eyes General: appearance normal, both eyes and all related structures Pupils: Equal, round and reactive pupils present Neck Neck: Yes normal visual inspection Chest Chest palpation & inspection: normal inspection of the chest Resp Effort & Inspection: normal respiratory effort Auscultation: clear to auscultation bilaterally Cardio Rate: regular rate Rhythm: regular rhythm Peripheral pulses: Peripheral pulses 2+ throughout GI Inspection: Yes normal to inspection Palpation (GI): Soft to palpation and nontender Auscultation: normal bowel sounds Back/Spine/Pelvis Thoracic/Lumbar Spine: thoracic and lumbar spine normal to inspection Skin General skin exam: no rashes or lesions noted Neuro General: patient oriented x3, no focal motor deficits and normal sensation to monofilament Cranial nerves: Yes Equal, round and reactive pupils present Cognition (Neuro): normal cognition Speech: No Abnormal speech present Gait exam (Neuro): Normal gait present Motor exam (neuro): 5/5 motor strength present throughout Extrem General: Yes normal to inspection Medical Decision Making Medical Decision Making MDM Narrative: 59to male from a [facility] with a history of intellectual disability, hypertension, hyperlipidemia, hypothyroidism, unsteady gait here with complaints of choking episode while eating beef stew. Resolved with heimlich at [facility] per staff. However, had sensation of FB that remained. While in [place] felt sensation pass and now drinking water with no difficultly. No pain, shortness of breath, cough, chest pain. Sitting in triage, speaking full sentences, tolerating secretions, drinking water, no complaints. LS CTA VSS Reviewed worrisome signs/symptoms with patient and when to seek additional care. Comfortable with discharge home with [facility] staff. Differential Diagnosis Differential Diagnoses: The differential diagnosis associated with the presentation includes retained FB esophagus, esophageal stricture, gerd Admission/Observation Consideration of admission/observation: Escalation of care including admission/observation considered Independent Historian Clinical information obtained from an independent historian. History obtained from or confirmed by: Other ([facility] staff) Tests considered The following testing was considered but not selected: no hypoxia, tachypnea, complaints of SOB or CP to warrant CXR Discharge Plan Discharge Clinical Impression: Esophageal foreign body Patient Disposition: Home, Self-Care Instructions: Esophageal Foreign Body (ED) Additional Instructions: Return for shortness of breath, fever, cough as we discussed Cut his food in small piece Have him eat slowly Prescriptions: No Action (DME) Shower Chair [facility] See Rx Instructions .ROUTE .MEDSUPPLY Qty: 1 0RF Rx Instructions: As directed showerchair hydrocortisone [Anti-Itch (HC)] 1 % cream 1 appl topical DAILY PRN (Reason: skin irritation) 30 Days Qty: 28.4 1RF lanolin-mineral oil Lotion 1 appl topical BID PRN (Reason: dry skin) 30 Days Qty: 250 3RF Debrox 6.5 % drops 5 drp otic (ear) right Q2D PRN (Reason: Cerumen) 30 Days Qty: 15 0RF acetaminophen [Tylenol 8 Hour] 650 mg tablet extended release 650 mg PO Q8H PRN (Reason: fever or pain) 90 Days Qty: 270 10RF cholecalciferol (vitamin D3) 125 mcg (5,000 unit) capsule 125 mcg PO QAM Qty: 30 2RF lisinopril 5 mg tablet 5 mg PO DAILY 30 Days Qty: 30 0RF atorvastatin 20 mg tablet 20 mg PO BEDTIME 30 Days Qty: 30 0RF levothyroxine 50 mcg tablet 50 mcg PO DAILY 90 Days Qty: 90 3RF polyethylene glycol 3350 17 gram/dose powder 17 g PO DAILY Qty: 510 0RF (DME) miscellaneous medical supply [facility] See Rx Instructions .ROUTE .MEDSUPPLY Qty: 1 0RF Rx Instructions: Shower safety stool. As directed, 999 days/life time. (DME) walker [facility] See Rx Instructions .ROUTE .MEDSUPPLY Qty: 1 0RF Rx Instructions: Rollator Walker with Wheels, Brakes and Seat. Daily As directed. 999 days Varivax (PF) 1,350 unit/0.5 mL suspension for reconstitution 0.5 ml subcut ONCE Qty: 1 0RF Adacel(Tdap Adolesn/Adult)(PF) 2 Lf-(2.5-5-3-5 mcg)-5Lf/0.5 mL syringe 0.5 ml IM ONCE PRN (Reason: immunization due) Qty: 0.5 0RF docusate sodium 100 mg capsule 100 mg PO BEDTIME PRN (Reason: constipation) Qty: 90 3RF Referrals: Manny Cardona MD [Primary Care Provider] - 1 week Interventions: ED Discharge Assessment Last Done: 03/27/25 17:58 Discharge Date/Time: 03/27/25 17:59 Print Language: Nepali
--- OUTSIDE RECORDS SUMMARY | 2025-03-27 17:57 | XMS_ITS | Continuity of Care Document ---
Author Organization Robin Rendon [facility] Address [address] [place] [address] Phone Care Team Providers Care Suction Drum Drier Operator Name Role Phone Unavailable Unavailable Unavailable Advance Directives Directive Yes / No Effective Date File Name No Information Encounters Encounter Description Practice Location Reason(s) For Visit Diagnoses Date Provider Providers Copied on Encounter Robin Sims [facility], [address] [place] [address] 2,[address], [place], [place], [id number], [place] tel:[phone] 22 [facility] No Information Jun-2 5 No Information Family History Family Member Type Diagnosis Age At Onset No Information Payers Payer name Insurance type Covered constitution party ID Authoriza tion(s) No Information Social [...]
[2025-03-27 17:58] VITALS: BP 135/86; PULSE 85; RESP 18; TEMP 37; O2SAT 100
== END 2025-03-27 17:59 | disposition home or self-care (01) ==
LOC: HO.ED 17:56
PROVIDERS: Emergency Provider Internal Medicine; PCP Family Medicine
DX: T18.128A Food in esophagus causing other injury, initial encounter (principal); I10 Essential (primary) hypertension; E78.5 Hyperlipidemia, unspecified; E03.9 Hypothyroidism, unspecified; Z79.02 Long term (current) use of antithrombotics/antiplatelets; Z79.899 Other long term (current) drug therapy; W44.F3XA Food entering into or through a natural orifice, initial encounter; Y93.89 Activity, other specified; Y92.10 Unspecified residential institution as the place of occurrence of the external cause; Y99.9 Unspecified external cause status
CPT/HCPCS: 99282

== ENCOUNTER 2025-04-04 14:55 | Outpatient (AMB) | payer MEDICARE, MEDICAID, SELFPAY ==
--- OUTSIDE RECORDS SUMMARY | 2015-07-05 10:16 | XMS_ITS | Continuity of Care Document ---
Author Organization [facility] Address [address] [place] [address] Phone Care Team Providers Care Court Recorder Name Role Phone Unavailable Unavailable Unavailable Advance Directives Directive Yes / No Effective Date File Name No Information Encounters Encounter Description Practice Location Reason(s) For Visit Diagnoses Date Provider Providers Copied on Encounter Robin Sims [facility], [address] [place] [address] 2,[address], [place], [place], [id number], [place] tel:[phone] 22 [facility] No Information Jun- 5 No Information Family History Family Member Type Diagnosis Age At Onset No Information Payers Payer name Insurance type Covered green party ID Authoriza tion(s) No Information Social History Type Description Quantity Date Captured Comments Sex Male Smoking Status No Information Chief Complaint And Reason For Visit No Information Reason For Referral Reason For Referral No Information History Of Present Illness Encounter Date Complaint History Of Prese nt Illness No Information Functional Status Date Functional Assessmen t No Information Instructions Date Instruction Additional Infor mation No Information Assessments Type Assessment Date No Information Patient Care Teams Name Effective Dates (start - stop) Status Members No Information
--- NOTE | 2025-04-04 15:04 | A.OFFPC_ITS ---
Vital Signs 04/04/25 15:12 Height 5 ft 4 in Weight 130 lb BMI 22.3 BP 120/66 Blood Pressure Location Lt brachial Position Sitting Respiration 16 Pulse 71 Pulse Source Pulse Oximeter Temp 97.8 F Temp Source Oral Pulse Oximetry (%) 97 Oxygen Delivery Method Room Air Intake Visit Reasons: [facility] / ER on March 27 he choked on Beef Stew. Intake Note: patient is scheduled for ed follow up. patient was eating beef stew and choke on steak due to it not being properly shredded. Pneumatic Jacketer Required: No Allergies No Known Allergies Allergy (Verified 04/04/25 15:06) Tobacco use date assessed: 01/19/24 Dental Screening Dental Screen Date: 01/19/24 HPI [facility] / ER on March 27 he choked on Beef Stew. HPI Details 59 y/o male [facility] for choking episode while eating beef stew. Had resolved with [facility] at [facility] home per staff, however had sensation of FB that remained. Sensation had passed while in [place] and was drinking water with no difficulty. Had denied any pain, shortness of breath, cough, chest pain. [facility] Medical History Cerebral palsy Skin breakdown Hypothyroidism Diarrhea Blood in stool Anemia Surgical History Hx of colonoscopy Social History Housing: Other (Assisted) Alcohol intake: never Patient Tobacco Use Status: Never used Tobacco e-Cigarette/Vaping Use: Never Used Second Hand Smoke Exposure: No service: No Current occupational status: disabled Current occupational exposures/hazards: No Cognitive needs: Yes Hearing needs: Yes Vision needs: No Questionnaire Thrive Questionnaire Date Thrive assessed: 03/21/25 I am a: Parent/Caregiver What is your living situation today?: I have a steady place to live Within the past 12 months, did the food you bought not last and you didn't have the money to get more?: Never true Within the past 12 months, did you worry whether your food would run out before you got money to buy more?: Never true Do you have trouble paying for medicines?: No Do you have trouble getting transportation to medical appointments?: No Do you have trouble paying your heating and electricity bill?: No Do you have trouble taking care of your child, family member or friend?: No Do you have trouble with day-to-day activities such as bathing, preparing meals, shopping, managing finances, etc.?: No Are you currently unemployed and looking for a job?: No Are you interested in more education?: No Please select the resources that you would like help with: None Currently or been in a relationship where the following occur: No concerns repo rted THRIVE Score: 0 HUSSEIN-7 AMB Questionnaire HUSSEIN-7 Date HUSSEIN - 7 assessed: 09/25/23 Source: Developed by Drs. Dat Cruz, Geetha Perez, Jean Carlos López and colleagues, with an educational jimmie from [employer]. Review of Systems Const Denies chills, Denies fatigue, Denies fever(s), Denies headache(s) and Denies weakness ENT Denies dizziness and Denies headache(s) Card Denies chest pain, Denies lightheadedness, Denies dyspnea and Denies other (Palpitations) Resp Denies cough, Denies dyspnea, Denies wheezing and Denies other ( shortness of breath) Musc Denies numbness and Denies tingling Neuro Denies dizziness, Denies headache(s), Denies numbness, Denies tingling, Denies paresthesias and Denies weakness Psych Denies anxiety and Denies depression Endo Denies fatigue Aller/Immun Denies wheezing Physical exam (Primary Care) Tobacco/Smoking Status: Tobacco use Status Tobacco use date assessed 01/19/24 04/04/25 15:10 Patient Tobacco Use Status Never used Tobacco 04/04/25 15:10 e-Cigarette/Vaping Use Never Used 04/04/25 15:10 Thrive Assessment: Date of Thrive Assessment Date Thrive assessed 03/21/25 04/04/25 15:10 Currently or been in a relationship where the following occur: No concerns reported Const General: no acute distress and well developed Nutritional Appearance: well nourished Orientation/consciousness: patient oriented x3 HENMT Head: Yes normocephalic and Yes atraumatic Eyes General: appearance normal, both eyes and all related structures Pupils: Equal, round and reactive pupils present EOM: EOMs intact bilaterally Resp Effort & Inspection: normal respiratory effort Auscultation: clear to auscultation bilaterally Cardio Rate: regular rate Rhythm: regular rhythm Heart sounds: S1 normal heart sound present, S2 normal heart sound present, no gallops, no murmurs and no rubs Neuro General: patient oriented x3 and gait normal Cranial nerves: Yes Equal, round and reactive pupils present Psych Affect: normal affect Coding Level of Care Code Est Pt Level 3 (33389) Diagnoses Sensation of foreign body R09.A0 Assessment & Plan Assessment & Plan (1) Sensation of foreign body: Code(s): R09.A0 - Foreign body sensation, unspecified Category: Medical Plan: Patient?had?recent?choking?episode?which?was?resolved?with?[facility]?maneuver Subsequently?had?a?foreign?body?sensation?in?his?throat.??This?has?resolved. Patient?was?observed?at?emergency?department?and?discharged He?should?have?his?food?cut?into?small?pieces Encouraged?patient?to?eat?more?slowly Fluids?with?meals
[2025-04-04 15:12] VITALS: BP 120/66; PULSE 71; RESP 16; TEMP 36.6; O2SAT 97; BMI 22.3
== END 2025-04-04 17:05 ==
LOC: HO.HMCFM 14:56
PROVIDERS: PCP Family Medicine; Visit Provider Family Medicine
DX: R09.A0 Foreign body sensation, unspecified (principal)

== ENCOUNTER → 2025-04-04 14:55 | Outpatient (BNVA) | payer MEDICARE, MEDICAID, SELFPAY | PROVIDERS: PCP Family Medicine; Visit Provider Family Medicine | DX: R09.A2 Foreign body sensation, throat (principal) | CPT/HCPCS: 99212 ==

== ENCOUNTER 2025-04-20 09:32 | Outpatient (AMB) | payer MEDICARE, MEDICAID, SELFPAY ==
--- NOTE | 2025-04-20 09:40 | MHC.OFFVIS ---
Vital Signs 04/20/25 09:42 Height 5 ft Weight 123 lb 7.342 oz BMI 24.1 BP 129/64 Pulse 61 Intake Visit Reasons: 1 year FUV. R/S x1 PT N/S last appt Therapeutic Recreation Leader Required: No Allergies No Known Allergies Allergy (Verified 04/20/25 09:42) HPI HPI 1 year FUV. R/S x1 PT N/S last appt: Details: LAST VISIT: Diverticulosis Patient has no GI concerning issues at all. Moving his bowels without any issues. Patient will follow-up with our office on as needed basis. ? TODAY'S VISIT Patient is here today for requested visit. Patient was seen in the ER last month for choking during dinner. Patient reports that he was eating beef stew and choked and had to be brought to emergency room. Patient reports that these of these got stuck in his throat. Patient states that he was able to swallow eventually while sitting in the triage. Patient reports that he has not had similar episodes since. Patient reports that he was eating fast and was not chewing his food. No trouble swallowing solids or liquids. Patient denies any other GI concerning symptoms. [facility] Medical History Cerebral palsy Skin breakdown Hypothyroidism Diarrhea Blood in stool Anemia Surgical History Hx of colonoscopy Social History Housing: Other (Intermediate) Alcohol intake: never Patient Tobacco Use Status: Never used Tobacco e-Cigarette/Vaping Use: Never Used Second Hand Smoke Exposure: No service: No Current occupational status: disabled Current occupational exposures/hazards: No Cognitive needs: Yes Hearing needs: Yes Vision needs: No Review of Systems Const Denies weight gain and Denies weight loss ENT Reports no additional complaints, Denies dysphagia and Denies odynophagia Card Reports no additional complaints Resp Reports no additional complaints GI Denies abdominal pain, Denies belching, Denies melena, Denies bloating, Denies change in bowel habits, Denies dysphagia, Denies excessive flatus, Denies dyspepsia, Denies heartburn, Denies diarrhea, Denies loose stools, Denies nausea, Denies odynophagia and Denies vomiting Reports no additional complaints Musc Reports no additional complaints Neuro Reports no additional complaints Psych Reports no additional complaints Endo Reports no additional complaints Physical Exam Vital Signs: Last Vital Signs Pulse 61 04/20/25 09:42 BP 129/64 04/20/25 09:42 BMI result Body Mass Index 24.1 Const General: healthy appearing, no acute distress and well developed Nutritional Appearance: well nourished Orientation/consciousness: oriented to person and oriented to place Limitations: behavioral limitations (Lives in a correction, staff present) and ambulation with walker Resp Effort & Inspection: normal respiratory effort, able to speak in complete sentences, no tracheal deviation and symmetric chest movement Auscultation: clear to auscultation bilaterally Cardio Rate: regular rate GI Inspection: Yes normal to inspection and No distended Palpation (GI): Soft to palpation, not firm, nontender and No hepatosplenomegaly present Auscultation: normal bowel sounds General: Yes no CVA tenderness Back/Spine/Pelvis Back: no CVA tenderness Skin General skin exam: elasticity normal, turgor normal and dry skin Neuro General: oriented to person and oriented to place Psych Appearance: grossly normal Mental Status: mental status grossly normal Assessment & Plan Assessment & Plan (1) Choking due to food in larynx: Code(s): T17.320A - Food in larynx causing asphyxiation, initial encounter; W44.F3XA - Food entering into or through a natural orifice, initial encounter Qualifiers: Encounter type: initial encounter Qualified Code(s): T17.320A - Food in larynx causing asphyxiation, initial encounter; W44.F3XA - Food entering into or through a natural orifice, initial encounter Plan One episode of choking. Will send patient for upper GI with barium swallow to evaluate if there is any esophageal strictures like achalasia, Schatzki ring, esophageal narrowing or disorganized dysmotility of the esophagus. Patient does not have any trouble swallowing now. Most likely that episode happened as patient was not chewing piece of the and it got stuck in his throat eventually patient was able to swallow without needing endoscopic retrieval of the food. Patient will follow-up in our office in 3-4 months, sooner on as needed basis. Patient was encouraged to eat smaller by its and shoe his food well. Patient was encouraged also to drink fluids after each bite. He is agreeable to this plan and verbalizes understanding of instructions. He was given the opportunity to ask questions and all questions answered Orders: Orders FL upper GI w Ba Swallow 04/20/25 K21.9 - Gastro-esophageal reflux disease without esophagitis Coding Level of Care Code Est Pt Level 3 (98812) Diagnoses Choking due to food in larynx, initial encounter T17.320A; W44.F3XA Encounter type: initial encounter Time Spent (min) 30 Comment 20 minutes spent with patient and additional 10 minutes spent reviewing his records
[2025-04-20 09:42] VITALS: BP 129/64; PULSE 61; BMI 24.1
== END 2025-04-20 09:53 | disposition home or self-care (01) ==
LOC: HO.HGI 09:33
PROVIDERS: PCP Family Medicine; Visit Provider Nurse Practitioner Family
DX: T17.320A Food in larynx causing asphyxiation, initial encounter (principal); W44.F3XA Food entering into or through a natural orifice, initial encounter; Z09 Encounter for follow-up examination after completed treatment for conditions other than malignant neoplasm
CPT/HCPCS: 99213

== ENCOUNTER → 2025-04-20 09:32 | Outpatient (BNVA) | payer MEDICARE, MEDICAID, SELFPAY | PROVIDERS: PCP Family Medicine; Visit Provider Nurse Practitioner Family | DX: T17.320 Food in larynx causing asphyxiation (principal); W44.F3XD Food entering into or through a natural orifice, subsequent encounter | CPT/HCPCS: 99212 ==

== ENCOUNTER 2025-05-31 08:05 | Outpatient (REF) | payer MEDICARE, MEDICAID, SELFPAY ==
--- NOTE | ~2025-05-31 | FL_ITS ---
EXAMINATION: XR GI AIR CONTRAST SERIES WITH BARIUM SWALLOW CLINICAL INFORMATION: Gastroesophageal reflux disease without esophagitis. COMPARISON: None available. TECHNIQUE: Routine barium swallow with barium coated saltine crackers and thick barium followed by effervescent granules were performed in upright view. FINDINGS: On oral administration of saltine crackers coated with barium there is normal oral mastication and propagation of bolus from the oral cavity through the pharynx, esophagus into stomach without obstruction, narrowing or stricture. On oral administration of thick barium and effervescent granules there is normal propagation bolus from the oral cavity into the pharynx, esophagus and stomach. No intrinsic filling defect or extrinsic compression seen. On placing patient supine and prone lying the course, caliber and peristalsis of the stomach is normal. There is mild gastroesophageal reflux without hiatal hernia. The mucosal pattern of stomach, duodenal bulb and the sweep is normal. FLUOROSCOPY TIME: 2 minutes and 3 seconds. DOSE AREA PRODUCT: 1564 uGy-m2 (microgray-meter squared) FL/FL upper GI w Ba Swallow IMPRESSION: Moderate gastroesophageal reflux without hiatal hernia. Rest of the barium swallow and upper GI exam is unremarkable. Electronically signed by: Donald Ballard MD 05/31/2025 10:37 AM EDT
== END 2025-05-31 08:06 | disposition home or self-care (01) ==
LOC: HO.XRAY 08:05
PROVIDERS: PCP Family Medicine; Visit Provider Nurse Practitioner Family
DX: K21.9 Gastro-esophageal reflux disease without esophagitis (principal)
CPT/HCPCS: 74240

== ENCOUNTER → 2025-05-31 08:06 | Outpatient (BNV) | payer MEDICARE, MEDICAID, SELFPAY | PROVIDERS: PCP Family Medicine; Visit Provider Radiology Diagnostic Radiology | DX: K21.9 Gastro-esophageal reflux disease without esophagitis (principal) | CPT/HCPCS: 74246 ==

== ENCOUNTER 2025-07-04 07:58 | Outpatient (AMB) | payer MEDICARE, MEDICAID, SELFPAY ==
--- OUTSIDE RECORDS SUMMARY | 2015-07-05 10:16 | XMS_ITS | Continuity of Care Document ---
Author Organization Robin Rendon [facility] Address [address] [place] [address] Phone Care Team Providers Care Warehouse Traffic Supervisor Name Role Phone Unavailable Unavailable Unavailable Advance Directives Directive Yes / No Effective Date File Name No Information Encounters Encounter Description Practice Location Reason(s) For Visit Diagnoses Date Provider Providers Copied on Encounter Robin Sims [facility], [address] [place] [address] 2,[address], [place], [place], [id number], [place] tel:[phone] 22 [facility] No Information Jun-2 5 No Information Family History Family Member Type Diagnosis Age At Onset No Information Payers Payer name Insurance type Covered alliance party ID Authoriza tion(s) No Information Social [...]
--- NOTE | 2025-07-04 08:01 | A.OFFVIS_ITS ---
Intake Vital Signs 07/04/25 08:07 Height 5 ft Weight 129 lb BMI 25.2 BP 118/70 Blood Pressure Location Lt brachial Position Sitting Respiration 12 Pulse 72 Pulse Source Pulse Oximeter Temp 97.2 F Temp Source Oral Pulse Oximetry (%) 100 Oxygen Delivery Method Room Air Intake Visit Reasons: pe - see comments Intake Note: AWV Retail Advertising Executive Required: No Allergies No Known Allergies Allergy (Verified 07/04/25 08:18) Medication List - Last Reconciled 07/04/25 by DELIA Cardoso-NIKO acetaminophen ER (Tylenol 8 Hour) 650 mg PO Q8H PRN 90 days atorvastatin 20 mg PO BEDTIME 30 days carbamide peroxide 6.5% (Debrox) 5 drps otic (ear) right Q2D PRN 30 days cholecalciferol (vitamin D3) 125 mcg PO QAM docusate sodium 100 mg PO BEDTIME PRN hydrocortisone 1% (Anti-Itch (hydrocortisone)) 1 appl topical DAILY PRN 30 days lanolin-mineral oil 1 appl topical BID PRN 30 days levothyroxine 50 mcg PO QAM 90 days miscellaneous medical supply Shower safety stool. As directed, 999 days/life time. omeprazole 20 mg PO DAILY polyethylene glycol 3350 17 grams PO DAILY Shower Chair As directed showerchair walker Rollator Walker with Wheels, Brakes and Seat. Daily As directed. 999 days Do you need a note to return to daycare/school/sports/work: No HPI HPI Comments History of Present Illness Details 60-year-old, M, living in nursing with c erebral palsy, vitamin-D deficiency, hypothyroidism, hypertension, hyperlipidemia, obesity, impaired fasting glucose, eczema SurgHx: reviewed as below FHx: reviewed as below SocHx: reviewed as below Health Maintenance: See scanned preventative medicine assessment with personalized health plan and screening schedule. ? Colon 05/09/2022 ? PSA done today WNL ? Tdap 03/12/2022, Flu today 07/04/25 [place] of Care: As listed in chart Gastroenterology Optho Here today for AWV & CPE. The Medicare Annual Wellness Visit (AWV) is a yearly appointment with a health professional to identify health risks and help reduce them and to create or update a personalized prevention plan. During a Medicare AWV, health professionals should also review any current opioid prescriptions, detect any cognitive impairment, and establish or update medical and family history. He is routinely followed by Dr Cardona for PCP. Taking all meds as directed. Routine care w/ care team. No Skin concerns No bowel or bladder concerns Visual Acuity: Vision - denies any problems. Eye exam 2023, wears readers Hearing Screening: [facility] completed hearing test, reports no change in hearing Recommend getting the PCV 15 vaccine, as no vaccine status is recorded at this time ACP: Forms reviewed and provided; caregiver thinks he has these documents at home Dietary/Nutrition/Exercise Edu provided: Y A1c today 5.1% Due for labs. Will get done today. EKG done today NSR. Plan: Cont all meds Labs today RTO 6 mo with PCP for routine fu 1 year for AWV, sooner as needed An additional 30 minutes was spent addressing the problem(s) noted at todays visit. This includes time spent before the visit reviewing the chart, time spent during the visit, and time spent after the visit on documentation reviewing laboratory results, diagnostic imaging, medications, performing a medically necessary evaluation, counseling on diagnoses, care coordination, ordering appropriate tests, ordering appropriate medications, review of tests performed by other providers, reporting test results with the patient, communication with other healthcare providers. [facility] Medical History (Updated 07/04/25 @ 08:35 by DELIA Cardoso-NIKO) Anemia Blood in stool Cerebral palsy Diarrhea Hypothyroidism Skin breakdown Surgical History (Updated 07/04/25 @ 08:13 by DELIA Cardoso-NIKO) Hx of colonoscopy (~2021) Social History Housing: Other (Half-Way) Alcohol intake: never Patient Tobacco Use Status: Never used Tobacco e-Cigarette/Vaping Use: Never Used Second Hand Smoke Exposure: No service: No Current occupational status: disabled Current occupational exposures/hazards: No Cognitive needs: Yes Hearing needs: Yes Vision needs: No Questionnaire Medicare Wellness Checkup What gender do you identify with?: male During the past 4 weeks, how much have you been bothered by emotional problems such as feeling anxious, depressed, irritable, sad or downhearted, and blue?: not at all During the past 4 weeks, has your physical & emotional health limited your social activities with family, friends, neighbors, or groups?: not at all During the past 4 weeks, how much bodily pain have you generally had?: no pain During the past 4 weeks, was someone available to help you if you needed & wanted help?: yes, as much as I wanted During the past 4 weeks, what was the hardest physical activity you could do for at least 2 minutes?: light Can you get to places out of walking distance without help? (For eg., can you travel alone on buses, taxis or drive your car?): No Can you go shopping for groceries or clothes without someone's help?: No Can you prepare your own meals?: No Can you do your housework without help?: No Because of any health problems, do you need the help of another person with your personal care needs such as eating, bathing, dressing or getting around the house?: Yes Can you handle your own money without help?: No During the past 4 weeks, how would you rate your health in general?: very good During the past 4 weeks how have things been going for you?: pretty well Are you having difficulties driving your car?: not applicable, I don't use a car Do you always fasten your seat belt when you are in a car?: yes, usually During past 4 weeks, have you been bothered by the following: never: Falling or dizzy when standing up, Sexual problems?, Trouble eating well?, Teeth or denture problems?, Problems using the telephone? and Tiredness or fatigue? Have you fallen 2 or more times in the past year?: No Are you afraid of falling?: No During the past 4 weeks, how many drinks of wine, beer, or other alcoholic beverages did you have?: no alcohol at all Do you exercise for about 20 minutes 3 or more times a week?: no, I usually do not exercise this much Have you been given information to help with the following?: no: Hazards in your house that might hurt you? and no: Keeping track of your medications? How often do you have trouble taking medicines the way you have been told to take them?: I do not have to take medicine How confident are you that you can control & manage most of your health problems?: very confident What is your race?: White Activity of Daily Living Bathing - sponge bath, tub bath or shower: receives help in bathing more than one body part (or not bathed) Dressing - getting clothes from closets & drawers, including inner/outer garments & fasteners.: receives help getting clothes or getting dressed, or stays undressed Toileting - going to the 'toilet room' for urine/bowel elimination & cleaning self/arranging clothes: receives help going to toilet room, cleaning self or arranging clothes Transfer: moves in & out of bed or chair with help Continence: has occasional 'accidents' Feeding: feeds self except getting help in cutting meat/buttering bread Total Score: 2 Information obtained from: informant Using telephone: needs assistance Traveling: needs assistance Shopping: needs assistance Preparing meals: needs assistance Housework: needs assistance Taking medicine: needs assistance Managing money: needs assistance PHQ-9 Over the last 2 weeks, how often have you been bothered by any of the following problems? 1. Little interest or pleasure in doing things: not at all 2. Feeling down, depressed, or hopeless: not at all 3. Trouble falling or staying asleep, or sleeping too much: not at all 4. Feeling tired or having little energy: not at all 5. Poor appetite or overeating: not at all 6. Feeling bad about yourself - or that you are a failure or have let yourself or your family down: not at all 7. Trouble concentrating on things, such as reading the newspaper or watching television: not at all 8. Moving or speaking so slowly that other people could have noticed. Or the opposite - being so fidgety or restless that you have been moving around a lot more than usual: not at all 9. Thoughts that you would be better off or of hurting yourself in some way: not at all Total score: 0 Depression Screening Interpretation: Negative Depression Screening Done: Yes 73223 - PHQ-9 Billing: Yes Source: Developed by Drs. Dat Cruz, Geetha Perez, Jean Carlos López and colleagues, with an educational jimmie from [employer]. Physical Exam Vital Signs: Last Vital Signs Temp 97.2 F 07/04/25 08:07 Pulse 72 07/04/25 08:07 Resp 12 07/04/25 08:07 BP 118/70 07/04/25 08:07 Pulse Ox 100 07/04/25 08:07 Oxygen Delivery Method Room Air 07/04/25 08:07 BMI result Body Mass Index 25.2 Const Other: General: Well developed, well nourished, in no acute distress. Appears stated age. Head: Normocephalic, atraumatic. Eyes: Pupils are equal, round and reactive to light and accommodation. Conjunctivae are clear. Vision grossly normal. Ears: TMs clear AU, EACS WNL Nose: Patent, without discharge. Mouth: There are no ulcers or lesions noted. No inflammation, no post nasal drip, no plaques nor exudates. Neck: Supple, no adenopathy or thyromegaly. Lungs: Clear to auscultation bilaterally. No rales, rhonchi or wheeze noted. Good air flow in all linder. Heart: Regular rate and rhythm. No murmurs, click, rubs or gallops are noted. Abdomen: Bowel sounds present in all quadrants. The abdomen is soft, nontender, with no masses or organomegaly noted. No hernias are noted. Musculoskeletal: chronic changes r/t cerebral palsy, walks w/walker Pulses: Peripheral pulses are equal and palpable bilaterally. Extremities: No clubbing, cyanosis, trace nonpitting edema BLE. Declined to remove shoes for the exam. Neurologic: Gait abnormal - baseline. Skin: No rashes, ulcers, or lesions noted. Turgor is good. Skin color is good. Psych: Normal eye contact, affect and mood appropriate, and normal interactions. Patient is alert and appropriate to context. Office Procedures EKG 68215-[id number], Complete Flu Questionnaire Does the patient have a severe egg allergy?: No Does the patient have severe life threatening allergies?: No Does the patient have a fever or illness today?: No Has the patient ever had Guillain-[place] Syndrome?: No Has the patient ever had any past reaction to a flu shot?: No Vision Screening Right Eye: 20/30 Left Eye: 20/30 Bilateral: 20/25 Color: Pass Corrected: Pass 13099 - Vision Screening Results AMB Hemoglobin A1c AMB Hemoglobin A1c 5.1 % Last Edit by Syeda Domínguez MA on 07/04/25 08:21 Immunizations Fluarix [id number] (PF) 45 mcg (15 mcg x 3)/0.5 mL IM syringe Performing Provider: MARTITA Cardoso Performing Location: [facility] Administered by: Syeda Domínguez MA on 07/04/25 08:34 Dose Route Admin Location Dispensed Lot Number Expiration Date NDC License Examiner 0.5 mL IM Left Deltoid 0.5 mL [id number] 04/11/26 [id number] [employer] VIS Given Date VIS Provided VIS Publication Date 07/04/25 Single Vaccine 24 Eligibility Eligibility Date Funding Source Not [facility] Eligible 07/04/25 Private Results Reviewed Results Reviewed: Laboratory Last Values Hgb A1c (Clinic) 5.1 % (4.0-6.0) 07/04/25 08:11 Assessment & Plan Assessment & Plan (1) Encounter for annual wellness visit (AWV) in Medicare patient: Onset Date: ~07/04/25 Code(s): Z00.00 - Encounter for general adult medical examination without abnormal findings (2) ACP (advance care planning): Code(s): Z71.89 - Other specified counseling (3) Hypertension: Code(s): I10 - Essential (primary) hypertension Qualifiers: Hypertension type: primary hypertension Qualified Code(s): I10 - Essential (primary) hypertension (4) Hypercholesterolemia: Code(s): E78.00 - Pure hypercholesterolemia, unspecified (5) Low HDL (under 40): Code(s): E78.6 - Lipoprotein deficiency (6) Elevated fasting blood sugar: Code(s): R73.01 - Impaired fasting glucose (7) Hypothyroidism: Code(s): E03.9 - Hypothyroidism, unspecified Qualifiers: Hypothyroidism type: acquired Qualified Code(s): E03.9 - Hypothyroidism, unspecified (8) Overweight (BMI 25.0-29.9): Code(s): E66.3 - Overweight (9) Low vitamin D level: Code(s): R79.89 - Other specified abnormal findings of blood chemistry (10) Anemia: Code(s): D64.9 - Anemia, unspecified Qualifiers: Iron deficiency anemia type: unspecified iron deficiency (11) Cerebral palsy: Code(s): G80.9 - Cerebral palsy, unspecified Qualifiers: Cerebral palsy type: spastic diplegic Qualified Code(s): G80.1 - Spastic diplegic cerebral palsy (12) Intellectual disability: Code(s): F79 - Unspecified intellectual disabilities Plan . Orders: Orders AMB Hemoglobin A1c Today Z13.9 - Encounter for screening, unspecified Influenza [id number] Immunization Today Z23 - Encounter for immunization Patient Instructions: Health screenings for men You should visit your health care provider regularly, even if you feel healthy. The purpose of these visits is to: Screen for medical issues Assess your risk for future medical problems Encourage a healthy lifestyle Update vaccinations and other preventive care services Help you get to know your provider in case of an illness Information Even if you feel fine, you should still see your provider for regular checkups. These visits can help you avoid problems in the future. For example, the only way to find out if you have high blood pressure is to have it checked regularly. High blood sugar and high cholesterol level also may not have any symptoms in the early stages. Simple blood tests can check for these conditions. There are specific times when you should see your provider or receive specific health screenings. The [place] Preventive Services Task Force publishes a list of recommended screenings. Below are screening guidelines for men ages 40 to 64. BLOOD PRESSURE SCREENING Have your blood pressure checked at least once every year. Watch for blood pressure screenings in your area. Ask your provider if you can stop in to have your blood pressure checked. Ask your provider if you need your blood pressure checked more often if: You have diabetes, heart disease, kidney problems, or are overweight or have certain other health conditions You have a first-degree relative with high blood pressure You are Black Your blood pressure top number is from 120 to 129 mm Hg, or the bottom number is from 70 to 79 mm Hg If the top number is 130 mm Hg or greater or the bottom number is 80 mm Hg or greater, this is considered stage 1 hypertension. Schedule an appointment with your provider to learn how you can lower your blood pressure. Effects of age on blood pressure CHOLESTEROL SCREENING Cholesterol screening should begin at age 35 for men with no known risk factors for coronary heart disease. Repeat cholesterol screening should take place: Every 5 years for men with normal cholesterol levels More often if changes occur in lifestyle (including weight gain and diet) More often if you have diabetes, heart disease, kidney problems, or certain other conditions COLORECTAL CANCER SCREENING If you are under age 45, talk to your provider about getting screened. You may need to be screened if you have a strong family history of colon cancer or polyps. Screening may also be considered if you have risk factors such as a history of inflammatory bowel disease or polyps. If you are age 45 to 75, you should be screened for colorectal cancer. There are several screening tests available: A stool-based fecal occult blood (gFOBT) or fecal immunochemical test (FIT) every year A stool sDNA test every 1 to 3 years Flexible sigmoidoscopy every 5 years or every 10 years with stool testing FIT done every year CT colonography (virtual colonoscopy) every 5 years Colonoscopy every 10 years You may need a colonoscopy more often if you have risk factors for colorectal cancer, such as: Ulcerative colitis A personal or family history of colorectal cancer A history of growths in your colon called adenomatous polyps DENTAL EXAM Go to the dentist once or twice every year for an exam and cleaning. Your dentist will evaluate if you have a need for more frequent visits. DIABETES SCREENING All adults who do not have risk factors for diabetes should be screened starting at age 35 and repeated every 3 years. If you have other risk factors for diabetes, such as a first degree relative with diabetes, overweight or obesity, high blood pressure, prediabetes, or a history of heart disease, you may be tested more often. If you are overweight and have other risk factors, such as high blood pressure and are planning to become , screening is recommended. EYE EXAM Have an eye exam every 2 to 4 years ages 40 to 54 and every 1 to 3 years ages 55 to 64. Your provider may recommend more frequent eye exams if you have vision problems or glaucoma risk. Have an eye exam that includes an examination of your retina (back of your eye) at least every year if you have diabetes. IMMUNIZATIONS Commonly needed vaccines include: Flu shot: get one every year COVID-19 vaccine: ask your provider what is best for you Tetanus-diphtheria and acellular pertussis (Tdap) vaccine: have as one of your tetanus-diphtheria vaccines if you did not receive it as an adolescent Tetanus-diphtheria: have a booster (or Tdap) every 10 years Varicella vaccine: receive 2 doses if you never had chickenpox or the varicella vaccine and were born in 1979 or after Hepatitis B vaccine: receive 2, 3, or 4 doses, depending on your exact circumstances, if you did not receive these as a child or adolescent, until age 59 Shingles (herpes zoster) vaccine: at or after age 50 Ask your provider if you should receive other immunizations, especially if you have certain medical conditions, such as diabetes or are at increased risk for some diseases such as pneumonia. INFECTIOUS DISEASE SCREENING Screening for hepatitis C: all adults ages 18 to 79 should get a one-time test for hepatitis C. Screening for human immunodeficiency virus (HIV): all people ages 15 to 65 should get a one-time test for HIV. Depending on your lifestyle and medical history, you may need to be screened for infections such as syphilis, chlamydia, and other infections. LUNG CANCER SCREENING You should have an annual screening for lung cancer with low-dose computed tomography (LDCT) if: You are age 50 to 80 years AND You have a 20 pack-year smoking history AND You currently smoke or have quit within the past 15 years OSTEOPOROSIS SCREENING If you are age 50 to 64 and have risk factors for osteoporosis, you should discuss screening with your provider. Risk factors can include long-term steroid use, low body weight, smoking, heavy alcohol use, having a fracture after age 50, or a family history of hip fracture or osteoporosis. Osteoporosis PHYSICAL EXAM All adults should visit their provider from time to time, even if they are healthy. The purpose of these visits is to: Screen for diseases Assess risk of future medical problems Encourage a healthy lifestyle Update vaccinations and other preventive care services Maintain a relationship with a provider in case of an illness Your height, weight, and body mass index (BMI) should be checked at every exam. During your exam, your provider may ask you about: Depression and anxiety Diet and exercise Alcohol and tobacco use Safety, such as use of seat belts and smoke detectors Your medicines and risk for interactions PROSTATE CANCER SCREENING If you're 55 through 69 years old, before having the test, talk to your provider about the pros and cons of having a PSA test. Ask about: Whether screening decreases your chance of dying from prostate cancer. Whether there is any harm from prostate cancer screening, such as side effects from testing or overtreatment of cancer when discovered. Whether you have a higher risk of prostate cancer than others. If you are age 55 or younger, screening is not generally recommended. You should talk with your provider about if you have a higher risk for prostate cancer. Risk factors include: Having a family history of prostate cancer (especially a brother or father) Being If you choose to be tested, the PSA blood test is repeated over time (yearly or less often), though the best frequency is not known. Prostate examinations are no longer routinely done on men with no symptoms. Prostate cancer SKIN EXAM Your provider may check your skin for signs of skin cancer, especially if you're at high risk. People at high risk include those who have had skin cancer before, have close relatives with skin cancer, or have a weakened immune system. TESTICULAR EXAM The [place] Preventive Services Task Force (USPSTF) now recommends against performing testicular self-exams. Doing testicular self-exams has been shown to have little to no benefit. Quality Reporting (2019) Adult ([facility] 138/12/04/68) Smoking risk assessment performed?: Yes Patient Tobacco Use Status: Never used Tobacco Depression screening performed: Yes Screen Results: Yes Negative screen Systolic BP not done?: No Diastolic BP not done?: No BMI screening not done: No BMI High - Follow Up: Yes High-plan Sexual Activity Screening ([facility] 153) Sexually active?: No Immunizations ([facility] 147, 117) Annual Influenza Vaccine: Yes Measles Antibody Test: No Mumps Antibody Test: No Rubella Antibody Test: No Varicella Antibody Test: No Anti Hepatitis A IgG Antigen test: No Anti Hepatitis B Virus Surface Ab test: No Fall Risk Screening ([facility] 139) Last assessed Fall Risk: 07/04/25 Fall risk assessment: No Falls in past year Dementia Assessment ([facility] 149) Cognitive assessment recorded: Yes Assessment of cognition with standardized tool: Yes Depression/Bipolar (159/160/161/177) PHQ-9: Total score: 0 Suicide risk assessment performed: Yes Psychotherapy: No Ophthalmol:Cataracts Visual Acuity (133) Visual acuity exam performed: Yes (see results) Coding Level of Care Code Medicare Subsequent (G0439) Est Pt Level 4 (22233) Diagnoses Encounter for annual wellness visit (AWV) in Medicare patient Z00.00 ACP (advance care planning) Z71.89 Primary hypertension I10 Hypertension type: primary hypertension Hypercholesterolemia E78.00 Low HDL (under 40) E78.6 Elevated fasting blood sugar R73.01 Acquired hypothyroidism E03.9 Hypothyroidism type: acquired Overweight (BMI 25.0-29.9) E66.3 Low vitamin D level R79.89 Anemia D64.9 Iron deficiency anemia type: unspecified iron deficiency 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
--- OUTSIDE RECORDS SUMMARY | 2025-07-04 08:03 | XMS_ITS | Patient Health Record ---
Author Organization [facility] Address [address] [place] [address] Care Team Providers Care Retail Pharmacist Name Role Phone Manny Cardona MD Primary Care Provider Lázaro Couch Unavailable [phone] Allergies No Known Allergies Reason For Referral No Information Medications Medication SIG (Take, Route, Frequency, Duration) Notes Start Date End Date Status Vitamin D Active Atorvastatin Calcium 20 MG 1 tablet Oral ly Once a day Active Debrox 6.5 % 5 drops into affecte d ear Otic Twice a day Active Tylenol Arthritis Pain Active Compression Stockings 20-30mm Hg 1 pair wear daily; Duration: 30 days Active Eucerin Eczema Relief - as directed Externally Active Levothyroxine Sodium 50 MCG 1 tablet in the morning on an empty stomach Orally Once a day Active MiraLax 17 GM/SCOOP as directed Orally Active Immunizations Vaccine Route Administration Date Status Comme nts Influenza Unknown 07/14/2024 Administered Social History Tobacco Use: Social History Observation Description Date Details (start date - stop date) Never Smoker NA - NA Tobacco Control (Standard) Question Answer Notes Tobacco use: Nonsmoker Additional Findings: Tobacco non-user Current no nsmoker AUDIT-C (Standard) Question Answer Notes Did you have a drink containing alcohol in the p ast year? No Points 0 Interpretation Negative Problems Problem Type SNOMED Code ICD Code Onset Dates Problem Status W/U Status Risk Notes Problem Bilateral atherosclerosis of arteries of lower limbs (disorder) (26282634844186216 ) Atherosclerosis of artery of both lower extremities (I70.203) Active confirmed Q7(A), Q8(2B), Q9(1B,2 C) Vital Signs Blood pressure diastolic 65 mm Hg 06/07/2025 Height 5 ft in 06/07/2025 Blood pressure systolic 128 mm Hg 06/07/2025 Weight 165 lbs 06/07/2025 BMI 32.22 kg/m2 06/07/2025 Procedures Procedure Date Ordered Date Performed Result Body Sit e 55723-RXPRTSJ NAIL, 1-5 06/07/2025 N/A 01103-BXCG SKIN LESIONS, 2 TO 4 06/07/2025 N/A R3412-XFIZHPXW DYSTROPHIC NAILS ANY # 06/07/2025 N/A Encounters Encounter Location Date Provider Diagnosis [address] [address] 06/07/2025 Lázaro Glover Atherosclerosis of artery of both lower extremities I70.203 ; Tinea unguium B35.1 ; Pain in left toe(s) M79.675 and Edema, lower extremity R60.[address] [address] 03/23/2025 Lázaro Glover [address] [address] 05/31/2025 Lázaro Glover Assessments Encounter Date Diagnosis (ICD Code) Assessment Notes Treatment Notes Treatment Clinical Notes Section Notes 06/07/2025 Tinea unguium (ICD-10 - B35.1) 06/07/2025 Atherosclerosis of artery of both lower extremities (ICD-10 - I70.203) Q7(A), Q8(2B), Q9(1B,2C) 06/07/2025 Pain in left toe(s) (ICD-10 - M79.675) 06/07/2025 Edema, lower extremity (ICD-10 - R60.0) Plan Of Treatment Pending Test Test Name Order Date 44542-GIPEDVH NAIL, 1-5 06/07/2025 30982-WFXP SKIN LESIONS, 2 TO 4 06/07/20 25 Y0096-QCVYIQBU DYSTROPHIC NAILS ANY # Next Appt Details Provider Name:Lázaro Glover , 09/20/2025 01:30:00 PM, [address] [place], [address], Medical (General) History Medical History History ICD Code Anemia Diverticulosis Hemorrhoids Leg length discrepancy Hypertension Constipation Hypothyroidism Psychiatric disorder Muscle Weakness Intellectual Disability Hypercholesterolemia
[2025-07-04 08:07] VITALS: BP 118/70; PULSE 72; RESP 12; TEMP 36.2; O2SAT 100; BMI 25.2
== END 2025-07-04 08:40 | disposition home or self-care (01) ==
LOC: HO.HMCFM 07:59
PROVIDERS: PCP Family Medicine; Visit Provider Nurse Practitioner Family
DX: Z00.00 Encounter for general adult medical examination without abnormal findings (principal); I10 Essential (primary) hypertension; Z71.89 Other specified counseling; G80.1 Spastic diplegic cerebral palsy; E78.00 Pure hypercholesterolemia, unspecified; E78.6 Lipoprotein deficiency; R73.01 Impaired fasting glucose; E03.9 Hypothyroidism, unspecified; E66.3 Overweight; R79.89 Other specified abnormal findings of blood chemistry; D64.9 Anemia, unspecified; Z23 Encounter for immunization; F79 Unspecified intellectual disabilities

== ENCOUNTER → 2025-07-04 07:58 | Outpatient (BNVA) | payer MEDICARE, MEDICAID, SELFPAY | PROVIDERS: PCP Family Medicine; Visit Provider Nurse Practitioner Family | DX: Z00.00 Encounter for general adult medical examination without abnormal findings (principal); E03.9 Hypothyroidism, unspecified; I10 Essential (primary) hypertension; E78.5 Hyperlipidemia, unspecified; R73.01 Impaired fasting glucose; L30.9 Dermatitis, unspecified; E78.00 Pure hypercholesterolemia, unspecified; E78.6 Lipoprotein deficiency; E66.3 Overweight; R79.89 Other specified abnormal findings of blood chemistry; D64.9 Anemia, unspecified; G80.1 Spastic diplegic cerebral palsy; Z23 Encounter for immunization; Z71.89 Other specified counseling | CPT/HCPCS: 83036; 90471; 90656; 96127; 99497 ==

== ENCOUNTER 2025-07-07 07:19 | Outpatient (REF) | payer MEDICARE, MEDICAID, SELFPAY ==
--- OUTSIDE RECORDS SUMMARY | 2015-07-05 10:16 | XMS_ITS | Continuity of Care Document ---
Author Organization Robin Rendon [facility] Address [address] [place] [address] Phone Care Team Providers Care Skilled Nursing Professional Name Role Phone Unavailable Unavailable Unavailable Advance Directives Directive Yes / No Effective Date File Name No Information Encounters Encounter Description Practice Location Reason(s) For Visit Diagnoses Date Provider Providers Copied on Encounter Robin Sims [facility], [address] [place] [address] 2,[address], [place], [place], [id number], [place] tel:[phone] 22 [facility] No Information Jun-2 5 No Information Family History Family Member Type Diagnosis Age At Onset No Information Payers Payer name Insurance type Covered libertarian ID Authoriza tion(s) No Information Social History [...]
--- OUTSIDE RECORDS SUMMARY | 2025-07-07 07:23 | XMS_ITS | Patient Health Record ---
Author Organization [facility] [place] Address [address] [place] [address] Care Team Providers Care Staff Appraiser Name Role Phone Manny Cardona MD Primary Care Provider Lázaro Couch Unavailable [phone] Allergies No Known Allergies Reason For Referral [...] atherosclerosis of arteries of lower limbs (disorder) (22285310506408013 ) Atherosclerosis of artery of both lower extremities (I70.203) Active confirmed Q7(A), Q8(2B), Q9(1B,2 C) Vital Signs Blood pressure diastolic 65 mm Hg 06/07/2025 Height 5 ft in 06/07/2025 Blood pressure systolic 128 mm Hg 06/07/2025 Weight 165 lbs 06/07/2025 BMI 32.22 kg/m2 06/07/2025 Procedures Procedure Date Ordered Date Performed Result Body Sit e 32331-RWRDSVH NAIL, 1-5 06/07/2025 N/A 35255-RNVY SKIN LESIONS, 2 TO 4 06/07/2025 N/A L3269-LZUWZHZP DYSTROPHIC NAILS ANY # 06/07/2025 N/A Encounters Encounter Location Date Provider Diagnosis [address] [address] 06/07/2025 Lázaro Glover Atherosclerosis of artery of both lower extremities I70.203 ; Tinea unguium B35.1 ; Pain in left toe(s) M79.675 and Edema, lower extremity R60.[address] [address] 03/23/2025 Lázaro Glover [address] [address] 05/31/2025 Lázaro Glover Assessments Encounter Date Diagnosis (ICD Code) Assessment Notes Treatment Notes Treatment Clinical Notes Section Notes 06/07/2025 Tinea unguium (ICD-10 - B35.1) 06/07/2025 Atherosclerosis of artery of both lower extremities (ICD-10 - I70.203) Q7(A), Q8(2B), Q9(1B,2C) 06/07/2025 Pain in left toe(s) (ICD-10 - M79.675) 06/07/2025 Edema, lower extremity (ICD-10 - R60.0) Plan Of Treatment Pending Test Test Name Order Date [id number]-PIRSKGP NAIL, 1-5 06/07/2025 73817-ABFS SKIN LESIONS, 2 TO 4 06/07/20 25 U3001-BAYFKGYB DYSTROPHIC NAILS ANY # Next Appt Details Provider Name:Lázaro Glover , 09/20/2025 01:30:00 PM, [address] [place], [address], Medical (General) History Medical History History ICD Code Anemia Diverticulosis Hemorrhoids Leg length discrepancy Hypertension Constipation Hypothyroidism Psychiatric disorder Muscle Weakness Intellectual Disability Hypercholesterolemia
[2025-07-07 07:37] LABS: MANUAL DIFF FLAG NO
[2025-07-07 08:25] LABS: Hematocrit 45.4 % (42.0-52.0); Hemoglobin 15.1 g/dl (14.0-18.0); Imm Gran Abs Auto 0.04 X10*3/uL (0.00-0.03); Imm Gran Pct Auto 0.5 % (0.0-0.4); Lymphocytes Absolute Auto 1.7 X10*3/uL (1.2-4.9); Mean Corpuscular HGB Conc 33.3 g/dl (31.0-36.0); Mean Corpuscular Hemoglobin 29.9 pg (27.0-33.0); Mean Corpuscular Volume 89.9 fL (80.0-98.0); NRBC Abs Auto 0.000 X10*3/uL (0.0-0.012); NRBC Pct Auto 0.0 /100WBC (0.0-0.2); Platelet Count 247 X10*3/uL (160-400); Red Blood Count 5.05 X10*6/uL (4.60-5.80); White Blood Count 7.9 X10*3/uL (4.8-10.8)
[2025-07-07 08:35] LABS: Appearance Urine Clear; Glucose Urine UA Negative (Negative); PH 8.5 (5.0-9.0); Specific Gravity - Urine 1.010 (1.005-1.025)
[2025-07-07 08:52] LABS: Alanine Aminotransferase 30 U/L (0-40); Albumin Level 4.6 g/dL (3.5-5.0); Alkaline Phosphatase 89 U/L (39-117); Anion Gap 13 (12-20); Aspartate Amino Transferase 43 U/L (5-37); Blood Urea Nitrogen 13 mg/dL (9-16); Calcium 9.8 mg/dL (8.4-10.2); Carbon Dioxide 29 mmol/L (22-29); Chloride 105 mmol/L (96-108); Cholesterol 137 mg/dL (<200); Estimated Glomerular Filt Rate > 60; HDL Cholesterol 34 mg/dL (>40); Potassium 4.1 mmol/L (3.3-5.1); Sodium 143 mmol/L (135-145); Total Protein 7.7 g/dL (6.5-8.0); Triglycerides 125 mg/dL (<150)
== END 2025-07-07 07:20 | disposition home or self-care (01) ==
LOC: HO.LAB 07:19
PROVIDERS: PCP Family Medicine; Visit Provider Family Medicine
DX: Z00.00 Encounter for general adult medical examination without abnormal findings (principal); Z12.5 Encounter for screening for malignant neoplasm of prostate; I10 Essential (primary) hypertension
CPT/HCPCS: 36415; 80053; 80061; 81003; 82043; 82570; 84153; 84443; 85025